=== PATIENT | female | born 1985 | race Caucasian/White ===

== ENCOUNTER 2023-01-29 11:32 | Outpatient (OUT) | payer BC, SELFPAY ==
[2023-01-29 12:04] LABS: Basophils Percent Auto 0.4 % (0.2-2.0); Eosinophils Absolute Auto 0.2 10^3/uL (0.0-0.7); Eosinophils Percent Auto 1.6 % (0.9-7.0); Hematocrit 39.5 % (36.0-48.0); Hemoglobin 13.7 g/dL (12.0-16.0); Immature Granulocytes Abs Auto 0.02 10^3/uL (0.00-0.03); Immature Granulocytes Pct Auto 0.2 % (0.0-0.5); Lymphocytes Absolute Auto 2.3 10^3/uL (1.2-3.8); Mean Corpuscular HGB Conc 34.7 g/dL (29.9-35.2); Mean Corpuscular Hemoglobin 29.4 pg (26.7-34.0); Mean Corpuscular Volume 84.8 fL (81.0-99.0); Monocytes Absolute Auto 0.4 10^3/uL (0.3-0.8); Monocytes Percent Auto 3.9 % (1.7-12.0); Neutrophils Absolute Auto 6.4 10^3/uL (1.4-6.5); Neutrophils Percent Auto 68.9 % (43.0-75.0); Platelet Count 272 10^3/uL (150-450); Red Blood Count 4.66 10^6/uL (4.20-5.40); White Blood Count 9.3 10^3/uL (4.0-11.0)
[2023-01-29 12:33] LABS: Estimated Average Glucose 80 mg/dL; Glycohemoglobin A1C 4.4 % (4.5-6.2)
[2023-01-29 12:38] LABS: Alanine Aminotransferase 19 U/L (14-59); Albumin Globulin Ratio 1.2; Albumin Level 4.3 g/dL (3.4-5.0); Alkaline Phosphatase 53 U/L (46-116); Anion Gap 12.1; Aspartate Amino Transferase 9 U/L (15-37); BUN Creatinine Ratio 14.3; Bilirubin Total 0.6 mg/dL (0.2-1.0); Calcium 8.9 mg/dL (8.5-10.1); Carbon Dioxide 27.5 mmol/L (21.0-32.0); Chloride 105 mmol/L (98-107); Chol HDL Ratio 3.8; Cholesterol 190 mg/dL (<=200); Estimated GFR (African America >60 (>=60); Estimated GFR (Non-African Ame >60 (>=60); Free Thyroxine Index 2.11 (1.30-4.50); Globulin 3.7 g/dL; Glucose 90 mg/dL (74-106); HDL Cholesterol 50 mg/dL (40-60); Potassium 3.6 mmol/L (3.5-5.1); Sodium 141 mmol/L (136-145); Triglycerides 110 mg/dL (<=150)
== END 2023-01-29 11:33 | disposition home or self-care (01) ==
PROVIDERS: PCP Family Medicine; Visit Provider Family Medicine
DX: Z00.00 Encounter for general adult medical examination without abnormal findings (principal)
CPT/HCPCS: 36415; 80053; 80061; 83036; 83540; 84436; 84443; 84479; 85025

== ENCOUNTER 2023-04-24 09:25 | Outpatient (OUT) | payer BC, SELFPAY ==
--- NOTE | 2023-04-24 09:29 | XR_ITS ---
The [address] [address] Patient Name: JIMI OSEGUERA MRN: [id number] date: 1985 Sex: F Assigned Patient Location: [facility] Current Patient Location: [facility] Accession/Order Number: [id number] Exam Date: 04/24/2023 10:20 Report Date: 04/24/2023 10:54 At the request of: MUNIR FERNÁNDEZ Procedure: XR mandible min 4V PROCEDURE: XR mandible min 4V HISTORY: Jaw Pain R68.64 COMPARISON: None. FINDINGS: BONES:No fracture, acute abnormality, or significant arthropathy. SOFT TISSUES:No visible soft tissue swelling. EFFUSION:None visible. OTHER: Negative. XR/XR mandible min 4V IMPRESSION: 1. No acute bone abnormality or suspicious findings. Electronically authenticated by: TEMI BARNES Date: 04/24/2023 10:54
== END 2023-04-24 09:26 | disposition home or self-care (01) ==
LOC: RAD 09:25
PROVIDERS: PCP Family Medicine; Visit Provider Family Medicine
DX: R68.84 Jaw pain (principal)
CPT/HCPCS: 70110

== ENCOUNTER 2023-11-04 10:49 | Outpatient (OUT) | payer BC, SELFPAY ==
--- OUTSIDE RECORDS SUMMARY | 2023-11-04 11:10 | XMS_ITS | CCD ---
Author Organization [facility] Care Team Providers Care Insurance Investigator Name Role Phone DR MUNIR FERNÁNDEZ Primary Care Unavailable PRADEEP, DR AMARAL Admitting Unavailable PRADEEP, DR AMARAL Attending Unavailable PRADEEP, DR AMARAL Attending Unavailable PRADEEP, DR AMARAL Consulting Unavailable DR MUNIR FERNÁNDEZ Primary Care Unavailable PRADEEP, DR AMARAL Admitting Unavailable PRADEEP, DR AMARAL Consulting Unavailable PRADEEP, DR AMARAL Primary Care Unavailable PRADEEP, DR AMARAL Admitting Unavailable PRADEEP, DR AMARAL Attending Unavailable Allergies Allergy Classification Reported Allergen(s) Allergy Type Date of Onset Reaction(s) Facility (2 sources) Gentamicin Sulfate (FDC) Drug Allergy [facility] Repository (2 sources) Penicillins Drug allergy (disorder) 10-07-2012 [facility] Problems Active Problems Problem Classification Problem Date Documented Da te Episodic/Chronic Cardiac dysrhythmias (1 source) Palpitations; Translations: [PALPITATIONS] Onset: 11-14-2021 Episodic Unclassified (3 sources) CONTACT W/AND (SUSP) EXPOS COVID-19; Translations: [CONTACT W/AND (SUSP) EXPOS COVID-19] Onset: 03-25-2021 Past or Other Problems Problem Classification Problem Date Documented Da te Episodic/Chronic Unclassified (1 source) CONTACT W/AND (SUSP) EXPOS COVID-19; Translations: [CONTACT W/AND (SUSP) EXPOS COVID-19] Onset: 03-23-2021 Results Test Name Value Interpretation Reference Range Facil ity VIT D 1 25 DIHYDROXYon 11-12 Calcitriol(1,25 di-OH Vit D) 41.6 pg/mL Normal 24.8-81.5 [facility] Comment on above: Result Comment: Pl ease note reference interval change Performed By: #### V [id number] #### [facility] [address] [place] [address] Dr. Jemma Covarrubias INSULINon 11-11-2021 Insulin 4.7 uIU/mL Normal 2.6-24.9 [facility] Comment on above: Performed By: #### I NSULIN #### [facility] [address] [place] [address] Dr. Jemma Covarrubias CBC AUTO DIFFon 11-10-2021 BASO # 0.0 103/ul Normal 0.0-0.1 [facility] Comment on above: Performed By: #### C BC #### [facility] [address] [place] [address] Dr. Jemma Covarrubias Basophils/100 WBC (Bld) 0.6 % Normal 0.2-2.0 [facility] Comment on above: Performed By: #### C BC #### [facility] [address] [place] [address] Dr. Jemma Covarrubias EO # 0.1 103/ul Normal 0.0-0.7 [facility] Comment on above: Performed By: #### C BC #### [facility] [address] [place] [address] Dr. Jemma Covarrubias Eosinophils/100 WBC (Bld) 0.7 % Critically low 0.9-7.0 [facility] Comment on above: Performed By: #### C BC #### [facility] [address] [place] [address] Dr. Jemma Covarrubias Erythrocyte distribution width (RBC) [Ratio] 13.4 % Normal 11.0-15.0 [facility] Comment on above: Performed By: #### C BC #### [facility] [address] [place] [address] Dr. Jemma Covarrubias Hematocrit (Bld) [Volume fraction] 34.4 % Critically low 36.0-48.0 [facility] Comment on above: Performed By: #### C BC #### [facility] [address] [place] [address] Dr. Jemma Covarrubias Hemoglobin (Bld) [Mass/Vol] 10.9 g/dL Critically low 12.0-16.0 [facility] Comment on above: Performed By: #### C BC #### [facility] [address] [address] [address] Jemma Covarrubias IG # 0.02 10e3/ul Normal 0.00-0.03 [facility] Comment on above: Performed By: #### C BC #### [facility] [address] [address] [address] Jemma Covarrubias IG % 0.3 % Normal 0.0-0.5 [facility] Comment on above: Performed By: #### C BC #### [facility] [address] [place] [address] Dr. Jemma Covarrubias LYMPH # 1.7 103/ul Normal 1.2-3.8 [facility] Comment on above: Performed By: #### C BC #### [facility] [address] [place] [address] Dr. Jemma Covarrubias Lymphocytes/100 WBC (Bld) 25.6 % Normal 20.5-60.0 [facility] Comment on above: Performed By: #### C BC #### [facility] [address] [place] [address] Dr. Jemma Covarrubias MANUAL DIFF REQ NO Normal [facility] Comment on above: Performed By: #### C BC #### [facility] [address] [place] [address] Dr. Jemma Covarrubias MCH (RBC) [Entitic mass] 24.7 pg Critically low 26.7-34.0 [facility] Comment on above: Performed By: #### C BC #### [facility] [address] [place] [address] Dr. Jemma Covarrubias MCHC (RBC) [Mass/Vol] 31.7 g/dL Normal 29.9-35.2 [facility] Comment on above: Performed By: #### C BC #### [facility] [address] [place] [address] Dr. Jemma Covarrubias MCV (RBC) [Entitic vol] 78.0 fL Critically low 81.0-99.0 [facility] Comment on above: Performed By: #### C BC #### [facility] [address] [place] [address] Dr. Jemma Covarrubias MONO # 0.3 103/ul Normal 0.3-0.8 [facility] Comment on above: Performed By: #### C BC #### [facility] [address] [place] [address] Dr. Jemma Covarrubias Monocytes/100 WBC (Bld) 4.5 % Normal 1.7-12.0 [facility] Comment on above: Performed By: #### C BC #### [facility] [address] [place] [address] Dr. Jemma Covarrubias NEUT # 4.6 103/ul Normal 1.4-6.5 [facility] Comment on above: Performed By: #### C BC #### [facility] [address] [place] [address] Dr. Jemma Covarrubias Neutrophils/100 WBC (Bld) 68.3 % Normal 43.0-75.0 [facility] Comment on above: Performed By: #### C BC #### [facility] [address] [place] [address] Dr. Jemma Covarrubias Platelet mean volume (Bld) [Entitic vol] 10.2 fL Normal 9.5-13.5 [facility] Comment on above: Performed By: #### C BC #### [facility] [address] [place] [address] Dr. Jemma Covarrubias PLT 299 103/ul Normal 150-450 [facility] Comment on above: Performed By: #### C BC #### [facility] [address] [place] [address] Dr. Jemma Covarrubias RBC 4.41 106/ul Normal 4.20-5.40 [facility] Comment on above: Performed By: #### C BC #### [facility] [address] [place] [address] Dr. Jemma Covarrubias WBC 6.7 103/ul Normal 4.0-11.0 [facility] Comment on above: Performed By: #### C BC #### [facility] [address] [place] [address] Dr. Jemma Covarrubias FREE THYROXINE INDEX T7on FTI 2.64 Normal 1.30-4.50 [facility] Comment on above: Performed By: #### T SH, T7, LIPID, CMP #### [facility] [address] [address] [address] Jemma Covarrubias T3U 31.0 % Normal 30.0-39.0 [facility] Comment on above: Performed By: #### T SH, T7, LIPID, CMP #### [facility] [address] [address] [address] Jemma Covarrubias T4 [Mass/Vol] 8.50 ug/dL Normal 4.80-13.90 [facility] Comment on above: Performed By: #### T SH, T7, LIPID, CMP #### [facility] [address] [address] [address] Jemma Covarrubias GLYCOHEMOGLOBIN A1Con 2021 ADA RECOMMENDATION SEE BELOW Normal [facility] Comment on above: Result Comment: ADA RECOMMENDED LIMIT 4.0 - 6.0 ADA THERAPEUTIC TARGET < 7.0 ACTION SUGGESTED > 7.0 Performed By: #### A 1C #### [facility] [address] [address] [address] Jemma Covarrubias Glucose [Mass/Vol] 103 mg/dL Normal [facility] Comment on above: Performed By: #### A 1C #### [facility] [address] [address] [address] Jemma Covarrubias HbA1c (Bld) [Mass fraction] 5.2 % Normal 4.5-6.2 [facility] Comment on above: Performed By: #### A 1C #### [facility] [address] [address] [address] Jemma Covarrubias IRONon 11-10-2021 Iron [Mass/Vol] 28.0 ug/dL Critically low 50.0-170.0 [facility] Comment on above: Performed By: #### I LUZ MARIA #### [facility] [address] [place] [address] Dr. Jemma Covarrubias LIPID PROFILEon 11-10-2021 CHOL-HDL RATIO NORM SEE BELOW Normal [facility] Comment on above: Result Comment: 3.3 - 4.4 LOW RISK 4.4 - 7.1 AVERAGE RISK 7.1 - 11.0 MODERATE RISK >11.0 HIGH RISK Performed By: #### T SH, T7, LIPID, CMP #### [facility] [address] [address] [address] Jemma Covarrubias Cholesterol [Mass/Vol] 189 mg/dL Normal <=200 [facility] Comment on above: Performed By: #### T SH, T7, LIPID, CMP #### [facility] [address] [address] [address] Jemma Covarrubias Cholesterol in HDL [Mass/Vol] 53 mg/dL Normal 40-60 [facility] Comment on above: Performed By: #### T SH, T7, LIPID, CMP #### [facility] [address] [address] [address] Jemma Covarrubias Cholesterol in LDL [Mass/Vol] 130.8 mg/dL Normal [facility] Comment on above: Performed By: #### T SH, T7, LIPID, CMP #### [facility] [address] [address] [address] Jemma Covarrubias Cholesterol.total/Cho lesterol in HDL [Mass ratio] 3.6 {ratio} Normal [facility] Comment on above: Performed By: #### T SH, T7, LIPID, CMP #### [facility] [address] [address] [address] Jemma Covarrubias HDL NORMAL > or = 60 mg/dl - LOW CARDIOVASCULAR RISK <40 mg/dl - HIGH CARDIOVASCULAR RISK Normal [facility] Comment on above: Performed By: #### T SH, T7, LIPID, CMP #### [facility] [address] [address] [address] Jemma Covarrubias LDL CALC NORMAL SEE BELOW Normal [facility] Comment on above: Result Comment: <100 mg/dl OPTIMAL 100 - 129 mg/dl NEAR OR ABOVE OPTIMAL 130 - 159 mg/dl BORDERLINE HIGH 160 - 189 mg/dl HIGH >190 mg/dl VERY HIGH Performed By: #### T SH, T7, LIPID, CMP #### [facility] [address] [address] [address] Jemma Covarrubias Triglyceride [Mass/Vol] 26 mg/dL Normal <=150 [facility] Comment on above: Performed By: #### T SH, T7, LIPID, CMP #### [facility] [address] [address] [address] Jemma Covarrubias VLDL CALC 5.2 mg/dL Normal [facility] Comment on above: Performed By: #### T SH, T7, LIPID, CMP #### [facility] [address] [address] [address] Jemma Covarrubias PROF 14(COMP METB)on 022 Albumin [Mass/Vol] 4.0 g/dL Normal 3.4-5.0 [facility] Comment on above: Performed By: #### T SH, T7, LIPID, CMP #### [facility] [address] [place] [address] Dr. Jemma Covarrubias Albumin/Globulin [Mass ratio] 1.1 {ratio} Normal [facility] Comment on above: Performed By: #### T SH, T7, LIPID, CMP #### [facility] [address] [place] [address] Dr. Jemma Covarrubias ALP [Catalytic activity/Vol] 55 U/L Normal 46-116 [facility] Comment on above: Performed By: #### T SH, T7, LIPID, CMP #### [facility] [address] [place] [address] Dr. Jemma Covarrubias ALT [Catalytic activity/Vol] 21 U/L Normal 14-59 [facility] Comment on above: Performed By: #### T SH, T7, LIPID, CMP #### [facility] [address] [place] [address] Dr. Jemma Covarrubias Anion gap [Moles/Vol] 15.6 mmol/L Normal [facility] Comment on above: Performed By: #### T SH, T7, LIPID, CMP #### [facility] [address] [place] [address] Dr. Jemma Covarrubias AST [Catalytic activity/Vol] 11 U/L Critically low 15-37 [facility] Comment on above: Performed By: #### T SH, T7, LIPID, CMP #### [facility] [address] [place] [address] Dr. Jemma Covarrubias Bilirubin [Mass/Vol] 0.6 mg/dL Normal 0.2-1.0 [facility] Comment on above: Performed By: #### T SH, T7, LIPID, CMP #### [facility] [address] [place] [address] Dr. Jemma Covarrubias Calcium [Mass/Vol] 8.9 mg/dL Normal 8.5-10.1 [facility] Comment on above: Performed By: #### T SH, T7, LIPID, CMP #### [facility] [address] [place] [address] Dr. Jemma Covarrubias Chloride [Moles/Vol] 104 mmol/L Normal 98-107 [facility] Comment on above: Performed By: #### T SH, T7, LIPID, CMP #### [facility] [address] [place] [address] Dr. Jemma Covarrubias CO2 [Moles/Vol] 26.2 mmol/L Normal 21.0-32.0 [facility] Comment on above: Performed By: #### T SH, T7, LIPID, CMP #### [facility] [address] [place] [address] Dr. Jemma Covarrubias Creatinine [Mass/Vol] 0.61 mg/dL Normal 0.55-1.02 [facility] Comment on above: Performed By: #### T SH, T7, LIPID, CMP #### [facility] [address] [place] [address] Dr. Jemma Covarrubias EGFR-AF CAMBODIAN >=60 Normal >=60 [facility] Comment on above: Performed By: #### T SH, T7, LIPID, CMP #### [facility] [address] [place] [address] Dr. Jemma Covarrubias EGFR-NON AF CAMBODIAN >=60 Normal >=60 [facility] Comment on above: Performed By: #### T SH, T7, LIPID, CMP #### [facility] [address] [place] [address] Dr. Jemma Covarrubias Globulin (S) [Mass/Vol] 3.7 g/dL Normal [facility] Comment on above: Performed By: #### T SH, T7, LIPID, CMP #### [facility] [address] [address] [address] Jemma Covarrubias Glucose [Mass/Vol] 92 mg/dL Normal 74-106 [facility] Comment on above: Performed By: #### T SH, T7, LIPID, CMP #### [facility] [address] [address] [address] Jemma Covarrubias Potassium [Moles/Vol] 3.8 mmol/L Normal 3.5-5.1 [facility] Comment on above: Performed By: #### T SH, T7, LIPID, CMP #### [facility] [address] [place] [address] Dr. Jemma Covarrubias Protein [Mass/Vol] 7.7 g/dL Normal 6.4-8.2 [facility] Comment on above: Performed By: #### T SH, T7, LIPID, CMP #### [facility] [address] [address] [address] Jemma Covarrubias Sodium [Moles/Vol] 142 mmol/L Normal 136-145 [facility] Comment on above: Performed By: #### T SH, T7, LIPID, CMP #### [facility] [address] [place] [address] Dr. Jemma Covarrubias Urea nitrogen [Mass/Vol] 10.0 mg/dL Normal 7.0-18.0 [facility] Comment on above: Performed By: #### T SH, T7, LIPID, CMP #### [facility] [address] [place] [address] Dr. Jemma Covarrubias Urea nitrogen/Creatinine [Mass ratio] 16.4 mg/mg Normal [facility] Comment on above: Performed By: #### T SH, T7, LIPID, CMP #### [facility] [address] [place] [address] Dr. Jemma Covarrubias TSHon 11-10-2021 TSH 1.411 uIU/mL Normal 0.358-3.740 [facility] Comment on above: Performed By: #### T SH, T7, LIPID, CMP #### [facility] [address] [place], [place] [address] Dr. Jemma Covarrubias Covid-19 PCR ([facility])on 02-25 SARS-CoV-2 (COVID-19) RNA DANYEL+probe Ql (Unsp spec) Not detected Normal NOT DETECTED [facility] Comment on above: Result Comment: This test is not yet approved or cleared by the [place] FDA. When there are no FDA-approved or cleared tests available, and other criteria are met, FDA can make tests available under an emergency access mechanism called an Emergency Use Authorization (EUA). The EUA for this test is supported by the [place] of [employer] and Human Service's (HHS's) declaration that circumstances exist to justify the emergency use of in vitro diagnostics for the detection and/or diagnosis of the virus that causes COVID-19. This EUA will remain in effect (meaning this test can be used) for the duration of the COVID-19 declaration justifying emergency of IVDs, unless it is terminated or revoked by FDA (after which the test may no longer be used). When diagnostic testing is negative, the possibility of a false negative should be considered in the context of a patient's recent exposures and the presence of clinical signs and symptoms consistent with SARS-CoV-2. Performed By: #### C VDTB #### [facility] [address] [place], [place] [address] Dr. Jemma Covarrubias Encounters Encounter Date Encounter Type Care Provider Facility Start: 11-14-2021 Encounter for genera l adult medical examination without abnormal findings DR MUNIR FERNÁNDEZ [facility] Start: 11-10-2021 End: 11-11-[address] MUNIR FERNÁNDEZ Facility:[facility] Start: 11-10-2021 End: 11-11-2021 Encounter for general adult medical examination without abnormal findings DR MUNIR FERNÁNDEZ Facility:[facility] Start: 04-09-[address] MUNIR FERNÁNDEZ Facility :[facility] Start: 03-23-2021 End: 03-23-[address] MUNIR FERNÁNDEZ Facility:[facility] Payers Date Payer Category Payer Unknown [id number] 1985 Unknown [id number] 1985 Unknown [id number] 1958 Self-pay [id number] 1958 Unknown [id number] 1958 Unknown [id number] Summary Purpose Family History No Family History Records Found Advance Directives No Advanced Directives Records Found Additional Source Comments INFORMATION SOURCE (unrecogn ized section and content) DATE CREATED AUTHOR 11/29/2021 [facility] FOR RECORDS PERTAINING TO PATIENTS WHO ARE OR HAVE BEEN ENROLLED IN A CHEMICAL DEPENDENCY/SUBSTANCEABUSE PROGRAM, SOME INFORMATION MAY BE OMITTED. This clinical summary was aggregated from multiple sources. Caution should be exercised in using it in the provision of clinical care. This summary normalizes information from multiple sources, and as a consequence, information in this document may materially change the coding, format and clinical context of patient data. In addition, data may be omitted in some cases. CLINICAL DECISIONS SHOULD BE BASED ON THE PRIMARY CLINICAL RECORDS. [facility]. provides no warranty or guarantee of the accuracy or completeness of information in this document.
[2023-11-04 11:47] LABS: Basophils Percent Auto 0.4 % (0.2-2.0); Eosinophils Absolute Auto 0.1 10^3/uL (0.0-0.7); Eosinophils Percent Auto 1.3 % (0.9-7.0); Hematocrit 36.4 % (36.0-48.0); Hemoglobin 12.6 g/dL (12.0-16.0); Immature Granulocytes Abs Auto 0.03 10^3/uL (0.00-0.03); Immature Granulocytes Pct Auto 0.4 % (0.0-0.5); Lymphocytes Absolute Auto 1.6 10^3/uL (1.2-3.8); Mean Corpuscular HGB Conc 34.6 g/dL (29.9-35.2); Mean Corpuscular Hemoglobin 29.2 pg (26.7-34.0); Mean Corpuscular Volume 84.3 fL (81.0-99.0); Mean Platelet Volume 10.4 fL (9.5-13.5); Monocytes Absolute Auto 0.3 10^3/uL (0.3-0.8); Monocytes Percent Auto 3.8 % (1.7-12.0); Neutrophils Absolute Auto 5.6 10^3/uL (1.4-6.5); Neutrophils Percent Auto 73.1 % (43.0-75.0); Platelet Count 297 10^3/uL (150-450); Red Blood Count 4.32 10^6/uL (4.20-5.40); Red Cell Distribution Width 13.3 % (11.0-15.0); White Blood Count 7.7 10^3/uL (4.0-11.0)
[2023-11-04 12:08] LABS: Anion Gap 12.7; BUN Creatinine Ratio 8.5; Calcium 9.1 mg/dL (8.5-10.1); Carbon Dioxide 27.3 mmol/L (21.0-32.0); Chloride 104 mmol/L (98-107); Estimated GFR (African America >60 (>=60); Estimated GFR (Non-African Ame >60 (>=60); Glucose 102 mg/dL (74-106); Sodium 141 mmol/L (136-145)
[2023-11-04 12:23] LABS: Erythrocyte Sedimentation Rate 11 mm/hr (<=20)
== END 2023-11-04 10:50 | disposition home or self-care (01) ==
LOC: LAB 10:51
PROVIDERS: PCP Family Medicine; Visit Provider Family Medicine
DX: L03.90 Cellulitis, unspecified (principal); I10 Essential (primary) hypertension
CPT/HCPCS: 36415; 80048; 80053; 83880; 85025; 85652; 87040

== ENCOUNTER 2024-01-20 08:32 | Outpatient (OUT) | payer BC, SELFPAY ==
--- OUTSIDE RECORDS SUMMARY | 2024-01-20 08:55 | XMS_ITS | CCD ---
Author Organization [facility] Care Team Providers Care Firewall Administrator Name Role Phone DR MUNIR FERNÁNDEZ Primary [...] Onset Reaction(s) Facility (2 sources) Gentamicin Sulfate ([facility]) Drug Allergy [facility] (2 sources) Penicillins Drug allergy (disorder) 10-07-2012 [facility] Problems Active Problems Problem Classification Problem [...] di-OH Vit D) 41.6 pg/mL Normal 24.8-81.5 [facility] Comment on above: Result Comment: Pl ease note reference interval change Performed By: #### V [id number] #### [facility] [address] [place] [id number] Jemma Covarrubias INSULINon 11-11-2021 Insulin 4.7 uIU/mL Normal 2.6-24.9 [facility] Comment on above: Performed By: #### I NSULIN #### [facility] [address] [place] [address] Dr. Jemma Covarrubias CBC AUTO DIFFon 11-10-2021 BASO # 0.0 103/ul Normal 0.0-0.1 [facility] Comment on above: Performed By: #### C BC #### [facility] [address] [place] [address] Dr. Jemma Covarrubias Basophils/100 WBC (Bld) 0.6 % Normal 0.2-2.0 [facility] Comment on above: Performed By: #### C BC #### [facility] [address] [place] [address] Dr. Jemma Covarrubias EO # 0.1 103/ul Normal 0.0-0.7 [facility] Comment on above: Performed By: #### C BC #### [facility] [address] [place] [address] Dr. Jemma Covarrubias Eosinophils/100 WBC (Bld) 0.7 % Critically low 0.9-7.0 [facility] Comment on above: Performed By: #### C BC #### [facility] [address] [place] [address] Dr. Jemma Covarrubias Erythrocyte distribution width (RBC) [Ratio] 13.4 % Normal 11.0-15.0 [facility] Comment on above: Performed By: #### C BC #### [facility] [address] [place] [address] Dr. Jemma Covarrubias Hematocrit (Bld) [Volume fraction] 34.4 % Critically low 36.0-48.0 [facility] Comment on above: Performed By: #### C BC #### [facility] [address] [place] [address] Dr. Jemma Covarrubias Hemoglobin (Bld) [Mass/Vol] 10.9 g/dL Critically low 12.0-16.0 [facility] Comment on above: Performed By: #### C BC #### [facility] [address] [address] [address] Jemma Covarrubias IG # 0.02 10e3/ul Normal 0.00-0.03 [facility] Comment on above: Performed By: #### C BC #### [facility] [address] [address] [address] Jemma Covarrubias IG % 0.3 % Normal 0.0-0.5 [facility] Comment on above: Performed By: #### C BC #### [facility] [address] [place] [address] Dr. Jemma Covarrubias LYMPH # 1.7 103/ul Normal 1.2-3.8 [facility] Comment on above: Performed By: #### C BC #### [facility] [address] [place] [address] Dr. Jemma Covarrubias Lymphocytes/100 WBC (Bld) 25.6 % Normal 20.5-60.0 [facility] Comment on above: Performed By: #### C BC #### [facility] [address] [place] [address] Dr. Jemma Covarrubias MANUAL DIFF REQ NO Normal [facility] Comment on above: Performed By: #### C BC #### [facility] [address] [place] [address] Dr. Jemma Covarrubias MCH (RBC) [Entitic mass] 24.7 pg Critically low 26.7-34.0 [facility] Comment on above: Performed By: #### C BC #### [facility] [address] [place] [address] Dr. Jemma Covarrubias MCHC (RBC) [Mass/Vol] 31.7 g/dL Normal 29.9-35.2 [facility] Comment on above: Performed By: #### C BC #### [facility] [address] [place] [address] Dr. Jemma Covarrubias MCV (RBC) [Entitic vol] 78.0 fL Critically low 81.0-99.0 [facility] Comment on above: Performed By: #### C BC #### [facility] [address] [place] [address] Dr. Jemma Covarrubias MONO # 0.3 103/ul Normal 0.3-0.8 [facility] Comment on above: Performed By: #### C BC #### [facility] [address] [place] [address] Dr. Jemma Covarrubias Monocytes/100 WBC (Bld) 4.5 % Normal 1.7-12.0 [facility] Comment on above: Performed By: #### C BC #### [facility] [address] [place] [address] Dr. Jemma Covarrubias NEUT # 4.6 103/ul Normal 1.4-6.5 [facility] Comment on above: Performed By: #### C BC #### [facility] [address] [place] [address] Dr. Jemma Covarrubias Neutrophils/100 WBC (Bld) 68.3 % Normal 43.0-75.0 [facility] Comment on above: Performed By: #### C BC #### [facility] [address] [place] [address] Dr. Jemma Covarrubias Platelet mean volume (Bld) [Entitic vol] 10.2 fL Normal 9.5-13.5 [facility] Comment on above: Performed By: #### C BC #### [facility] [address] [place] [address] Dr. Jemma Covarrubias PLT 299 103/ul Normal 150-450 [facility] Comment on above: Performed By: #### C BC #### [facility] [address] [place] [address] Dr. Jemma Covarrubias RBC 4.41 106/ul Normal 4.20-5.40 [facility] Comment on above: Performed By: #### C BC #### [facility] [address] [place] [address] Dr. Jemma Covarrubias WBC 6.7 103/ul Normal 4.0-11.0 [facility] Comment on above: Performed By: #### C BC #### [facility] [address] [place] [address] Dr. Jemma Covarrubias FREE THYROXINE INDEX T7on FTI 2.64 Normal 1.30-4.50 [facility] Comment on above: Performed By: #### T SH, T7, LIPID, CMP #### [facility] [address] [address] [address] Jemma Covarrubias T3U 31.0 % Normal 30.0-39.0 [facility] Comment on above: Performed By: #### T SH, T7, LIPID, CMP #### [facility] [address] [address] [address] Jemma Covarrubias T4 [Mass/Vol] 8.50 ug/dL Normal 4.80-13.90 [facility] Comment on above: Performed By: #### T SH, T7, LIPID, CMP #### [facility] [address] [address] [address] Jemma Covarrubias GLYCOHEMOGLOBIN A1Con 2021 ADA RECOMMENDATION SEE BELOW Normal [facility] Comment on above: Result Comment: ADA RECOMMENDED LIMIT 4.0 - 6.0 ADA THERAPEUTIC TARGET < 7.0 ACTION SUGGESTED > 7.0 Performed By: #### A 1C #### [facility] [address] [address] [address] Jemma Covarrubias Glucose [Mass/Vol] 103 mg/dL Normal [facility] Comment on above: Performed By: #### A 1C #### [facility] [address] [address] [address] Jemma Covarrubias HbA1c (Bld) [Mass fraction] 5.2 % Normal 4.5-6.2 [facility] Comment on above: Performed By: #### A 1C #### [facility] [address] [address] [address] Jemma Covarrubias IRONon 11-10-2021 Iron [Mass/Vol] 28.0 ug/dL Critically low 50.0-170.0 [facility] Comment on above: Performed By: #### I LUZ MARIA #### [facility] [address] [place] [address] Dr. Jemma Covarrubias LIPID PROFILEon 11-10-2021 CHOL-HDL RATIO NORM SEE BELOW Normal [facility] Comment on above: Result Comment: 3.3 - 4.4 LOW RISK 4.4 - 7.1 AVERAGE RISK 7.1 - 11.0 MODERATE RISK >11.0 HIGH RISK Performed By: #### T SH, T7, LIPID, CMP #### [facility] [address] [address] [address] Jemma Covarrubias Cholesterol [Mass/Vol] 189 mg/dL Normal <=200 [facility] Comment on above: Performed By: #### T SH, T7, LIPID, CMP #### [facility] [address] [address] [address] Jemma Covarrubias Cholesterol in HDL [Mass/Vol] 53 mg/dL Normal 40-60 [facility] Comment on above: Performed By: #### T SH, T7, LIPID, CMP #### [facility] [address] [address] [address] Jemma Covarrubias Cholesterol in LDL [Mass/Vol] 130.8 mg/dL Normal [facility] Comment on above: Performed By: #### T SH, T7, LIPID, CMP #### [facility] [address] [address] [address] Jemma Covarrubias Cholesterol.total/Cho lesterol in HDL [Mass ratio] 3.6 {ratio} Normal [facility] Comment on above: Performed By: #### T SH, T7, LIPID, CMP #### [facility] [address] [address] [address] Jemma Covarrubias HDL NORMAL > or = 60 mg/dl - LOW CARDIOVASCULAR RISK <40 mg/dl - HIGH CARDIOVASCULAR RISK Normal [facility] Comment on above: Performed By: #### T SH, T7, LIPID, CMP #### [facility] [address] [address] [address] Jemma Covarrubias LDL CALC NORMAL SEE BELOW Normal [facility] Comment on above: Result Comment: <100 mg/dl OPTIMAL 100 - 129 mg/dl NEAR OR ABOVE OPTIMAL 130 - 159 mg/dl BORDERLINE HIGH 160 - 189 mg/dl HIGH >190 mg/dl VERY HIGH Performed By: #### T SH, T7, LIPID, CMP #### [facility] [address] [address] [address] Jemma Covarrubias Triglyceride [Mass/Vol] 26 mg/dL Normal <=150 [facility] Comment on above: Performed By: #### T SH, T7, LIPID, CMP #### [facility] [address] [address] [address] Jemma Covarrubias VLDL CALC 5.2 mg/dL Normal [facility] Comment on above: Performed By: #### T SH, T7, LIPID, CMP #### [facility] [address] [address] [address] Jemma Covarrubias PROF 14(COMP METB)on 022 Albumin [Mass/Vol] 4.0 g/dL Normal 3.4-5.0 [facility] Comment on above: Performed By: #### T SH, T7, LIPID, CMP #### [facility] [address] [place] [address] Dr. Jemma Covarrubias Albumin/Globulin [Mass ratio] 1.1 {ratio} Normal [facility] Comment on above: Performed By: #### T SH, T7, LIPID, CMP #### [facility] [address] [place] [address] Dr. Jemma Covarrubias ALP [Catalytic activity/Vol] 55 U/L Normal 46-116 [facility] Comment on above: Performed By: #### T SH, T7, LIPID, CMP #### [facility] [address] [place] [address] Dr. Jemma Covarrubias ALT [Catalytic activity/Vol] 21 U/L Normal 14-59 [facility] Comment on above: Performed By: #### T SH, T7, LIPID, CMP #### [facility] [address] [place] [address] Dr. Jemma Covarrubias Anion gap [Moles/Vol] 15.6 mmol/L Normal [facility] Comment on above: Performed By: #### T SH, T7, LIPID, CMP #### [facility] [address] [place] [address] Dr. Jemma Covarrubias AST [Catalytic activity/Vol] 11 U/L Critically low 15-37 [facility] Comment on above: Performed By: #### T SH, T7, LIPID, CMP #### [facility] [address] [place] [address] Dr. Jemma Covarrubias Bilirubin [Mass/Vol] 0.6 mg/dL Normal 0.2-1.0 [facility] Comment on above: Performed By: #### T SH, T7, LIPID, CMP #### [facility] [address] [place] [address] Dr. Jemma Covarrubias Calcium [Mass/Vol] 8.9 mg/dL Normal 8.5-10.1 [facility] Comment on above: Performed By: #### T SH, T7, LIPID, CMP #### [facility] [address] [place] [address] Dr. Jemma Covarrubias Chloride [Moles/Vol] 104 mmol/L Normal 98-107 [facility] Comment on above: Performed By: #### T SH, T7, LIPID, CMP #### [facility] [address] [place] [address] Dr. Jemma Covarrubias CO2 [Moles/Vol] 26.2 mmol/L Normal 21.0-32.0 [facility] Comment on above: Performed By: #### T SH, T7, LIPID, CMP #### [facility] [address] [place] [address] Dr. Jemma Covarrubias Creatinine [Mass/Vol] 0.61 mg/dL Normal 0.55-1.02 [facility] Comment on above: Performed By: #### T SH, T7, LIPID, CMP #### [facility] [address] [place] [address] Dr. Jemma Covarrubias EGFR-AF AFGHAN >=60 Normal >=60 [facility] Comment on above: Performed By: #### T SH, T7, LIPID, CMP #### [facility] [address] [place] [address] Dr. Jemma Covarrubias EGFR-NON AF AFGHAN >=60 Normal >=60 [facility] Comment on above: Performed By: #### T SH, T7, LIPID, CMP #### [facility] [address] [place] [address] Dr. Jemma Covarrubias Globulin (S) [Mass/Vol] 3.7 g/dL Normal [facility] Comment on above: Performed By: #### T SH, T7, LIPID, CMP #### [facility] [address] [address] [address] Jemma Covarrubias Glucose [Mass/Vol] 92 mg/dL Normal 74-106 [facility] Comment on above: Performed By: #### T SH, T7, LIPID, CMP #### [facility] [address] [address] [address] Jemma Covarrubias Potassium [Moles/Vol] 3.8 mmol/L Normal 3.5-5.1 [facility] Comment on above: Performed By: #### T SH, T7, LIPID, CMP #### [facility] [address] [place] [address] Dr. Jemma Covarrubias Protein [Mass/Vol] 7.7 g/dL Normal 6.4-8.2 [facility] Comment on above: Performed By: #### T SH, T7, LIPID, CMP #### [facility] [address] [address] [address] Jemma Covarrubias Sodium [Moles/Vol] 142 mmol/L Normal 136-145 [facility] Comment on above: Performed By: #### T SH, T7, LIPID, CMP #### [facility] [address] [place] [address] Dr. Jemma Covarrubias Urea nitrogen [Mass/Vol] 10.0 mg/dL Normal 7.0-18.0 [facility] Comment on above: Performed By: #### T SH, T7, LIPID, CMP #### [facility] [address] [place] [address] Dr. Jemma Covarrubias Urea nitrogen/Creatinine [Mass ratio] 16.4 mg/mg Normal [facility] Comment on above: Performed By: #### T SH, T7, LIPID, CMP #### [facility] [address] [place] [address] Dr. eJmma Covarrubias TSHon 11-10-2021 TSH 1.411 uIU/mL Normal 0.358-3.740 [facility] Comment on above: Performed By: #### T SH, T7, LIPID, CMP #### [facility] [address] [place], [place] [address] Dr. Jemma Covarrubias Covid-19 PCR ([facility])on 02-25 SARS-CoV-2 (COVID-19) RNA DANYEL+probe Ql (Unsp spec) Not detected Normal NOT DETECTED [facility] Comment on above: Result Comment: This test is not yet approved or cleared by the [place] FDA. When there are no FDA-approved or cleared tests available, and other criteria are met, FDA can make tests available under an emergency access mechanism called an Emergency Use Authorization (EUA). The EUA for this test is supported by the [place] of Health and Human Service's (HHS's) declaration [...] SARS-CoV-2. Performed By: #### C VDTB #### [facility] [address] [place], [place] [address] Dr. Jemma Covarrubias Encounters Encounter Date Encounter Type Care Provider Facility Start: 11-14-2021 Encounter for genera l adult medical examination without abnormal findings DR MUNIR FERNÁNDEZ [facility] Start: 11-10-2021 End: 11-11-[address] MUNIR FERNÁNDEZ Facility:[facility] Start: 11-10-2021 End: 11-11-2021 Encounter for general adult medical examination without abnormal findings DR MUNIR FERNÁNDEZ Facility:[facility] Start: 04-09-[address] MUNIR FERNÁNDEZ Facility :[facility] Start: 03-23-2021 End: 03-23-[address] MUNIR FERNÁNDEZ Facility:[facility] Payers Date Payer Category Payer Unknown [id number] 1985 Unknown [id number] 1986 Unknown [id number] 1959 Self-pay [id number] 1958 Unknown [id number] 1958 Unknown [id number] Summary Purpose Family History No Family History Records Found Advance Directives No Advanced Directives Records Found Additional Source Comments INFORMATION SOURCE (unrecogn ized section and content) DATE CREATED AUTHOR 11/29/2021 [facility] PERTAINING TO PATIENTS WHO ARE [...] BE BASED ON THE PRIMARY CLINICAL RECORDS. [facility]. provides no warranty or guarantee of the accuracy or completeness of information in this document.
[2024-01-20 08:56] LABS: Basophils Percent Auto 0.1 % (0.2-2.0); Eosinophils Percent Auto 0.5 % (0.9-7.0); Hematocrit 37.5 % (36.0-48.0); Hemoglobin 12.6 g/dL (12.0-16.0); Immature Granulocytes Abs Auto 0.02 10^3/uL (0.00-0.03); Immature Granulocytes Pct Auto 0.2 % (0.0-0.5); Lymphocytes Absolute Auto 1.9 10^3/uL (1.2-3.8); Lymphocytes Percent Auto 23.1 % (20.5-60.0); Mean Corpuscular HGB Conc 33.6 g/dL (29.9-35.2); Mean Corpuscular Hemoglobin 28.6 pg (26.7-34.0); Mean Platelet Volume 10.4 fL (9.5-13.5); Monocytes Absolute Auto 0.4 10^3/uL (0.3-0.8); Monocytes Percent Auto 4.5 % (1.7-12.0); Neutrophils Percent Auto 71.6 % (43.0-75.0); Platelet Count 285 10^3/uL (150-450); Red Blood Count 4.41 10^6/uL (4.20-5.40); Red Cell Distribution Width 12.6 % (11.0-15.0); White Blood Count 8.4 10^3/uL (4.0-11.0)
[2024-01-20 10:09] LABS: Alanine Aminotransferase 17 U/L (14-59); Albumin Globulin Ratio 1.3; Albumin Level 4.1 g/dL (3.4-5.0); Alkaline Phosphatase 55 U/L (46-116); Anion Gap 11.4; Aspartate Amino Transferase 11 U/L (15-37); BUN Creatinine Ratio 8.5; Bilirubin Total 1.1 mg/dL (0.2-1.0); Carbon Dioxide 28.2 mmol/L (21.0-32.0); Chloride 104 mmol/L (98-107); Chol HDL Ratio 3.4; Cholesterol 149 mg/dL (<=200); Estimated GFR (African America >60 (>=60); Estimated GFR (Non-African Ame >60 (>=60); Free T3 2.59 pg/mL (2.18-3.98); Globulin 3.1 g/dL; Glucose 86 mg/dL (74-106); HDL Cholesterol 44 mg/dL (40-60); LDL Cholesterol Calculated 80.8 mg/dL; Potassium 3.6 mmol/L (3.5-5.1); Sodium 140 mmol/L (136-145); Thyroid Stimulating Hormone 2.236 uIU/mL (0.358-3.740); Total Protein 7.2 g/dL (6.4-8.2); Triglycerides 121 mg/dL (<=150); VLDL CHOLESTEROL 24.2 mg/dL
[2024-01-20 10:27] LABS: Estimated Average Glucose 82 mg/dL; Glycohemoglobin A1C 4.5 % (4.5-6.2)
== END 2024-01-20 08:33 | disposition home or self-care (01) ==
LOC: LAB 08:33
PROVIDERS: PCP Family Medicine; Visit Provider Family Medicine
DX: Z00.00 Encounter for general adult medical examination without abnormal findings (principal)
CPT/HCPCS: 36415; 80053; 80061; 83036; 84436; 84443; 84481; 85025

== ENCOUNTER 2024-12-09 09:59 | Outpatient (OUT) | payer BC, SELFPAY ==
--- OUTSIDE RECORDS SUMMARY | 2024-12-09 10:24 | XMS_ITS | CCD ---
Author Organization [facility] Care Team Providers Care Child Care Specialist Name Role Phone DR MUNIR PORTILLO Primary Care Unavailable PRADEEP, DR AMARAL Admitting Unavailable PRADEEP, DR AMARAL Attending Unavailable PRADEEP, DR AMARAL Attending Unavailable PRADEEP, DR AMARAL Consulting Unavailable PRADEEP, DR AMARAL Primary Care Unavailable PRADEEP, DR AMARAL Admitting Unavailable PRADEEP, DR AMARAL Consulting Unavailable PRADEEP, DR AMARAL Primary Care Unavailable PRADEEP, DR AMARAL Admitting Unavailable PRADEEP, DR AMARAL Attending Unavailable CAROLE DUNBAR Attending Unavailable CAROLE DUNBAR Attending Unavailable Munir Portillo MD Primary Care Provider [phone] Angella Saldivar MD Attending Provider Angella Saldivar Attending Unavailable Angella Saldivar Admitting Unavailable Allergies Allergy Classification Reported Allergen(s) Allergy Type Date of Onset Reaction(s) Facility (2 sources) Gentamicin Sulfate (RETIREMENT) Drug Allergy [facility] (2 sources) Penicillins Drug allergy (disorder) 10-07-2012 [facility] (4 sources) Gentamicin Drug Allergy 11-16-2013 [facility] (4 sources) Penicillins Drug Allergy 03-13-2013 [facility] Medications Current Medications Medication Drug Class(es) Dates Sig (Normalized) Sig (Original) desoximetasone 2.5 mg/ml topical cream (4 sources) Corticosteroid desoximetasone (Topicort) 0.25 % cream 1 Application every 12 (twelve) hours Active ferrous sulfate 325 mg delayed release oral tablet (4 sources) take 1 tablet by mouth in the morning ferrous sulfate 325 (65 Fe) MG EC tablet Take 325 mg by mouth in the morning and 325 mg before bedtime. Do not crush, chew, or split. . Active 24 hr metoprolol succinate 25 mg extended release oral tablet (4 sources) beta-Adrenergic Nicolas Start: 12-18-2022 take 1 tablet by mouth every twenty-four hours in the morning metoprolol succinate XL (Toprol-XL) 25 MG 24 hr tablet Take 25 mg by mouth in the morning. 12/18/2022 Active polyethylene glycol 3350 44083 mg powder for oral solution (4 sources) Osmotic Laxative Start: 02-18-2023 polyethylene glycol, PEG, 3350 (MiraLax) 17 GM/SCOOP powder 02/18/2023 Active tacrolimus 0.001 mg/mg topical ointment (4 sources) Calcineurin Inhibitor Immunosuppressant tacrolimus (Protopic) 0.1 % ointment 1 Application 1 (one) time each day at the same time Active terconazole 4 mg/ml vaginal cream (4 sources) Azole Antifungal Start: 01-23-2024 End: 01-30-2024 terconazole (Terazol 7) 0.4 % vaginal cream Indications: Vulvovaginal Candidiasis Insert 1 applicator into the vagina at bedtime for 7 days 45 g 2 01/23/2024 01/30/2024 Active triamcinolone acetonide 1 mg/ml topical cream (4 sources) Corticosteroid Start: 01-29-2024 triamcinolone (Kenalog) 0.1 % cream Indications: Vaginal itching Apply topically 2 (two) times a day 30 g 2 01/29/2024 Active Start: 01-23-2024 End: 01-23-2024 triamcinolone (Kenalog) 0.1 % cream Indications: Vaginal itching Apply topically 2 (two) times a day 45 g 1 01/23/2024 01/23/2024 Discontinued Completed/Discontinued Medications Medication Drug Class(es) Dates Sig (Normalized) Sig (Original) fluconazole 150 mg oral tablet (2 sources) Azole Antifungal Start: 01-23-2024 End: 01-23-2024 take 1 tablet by mouth once fluconazole (Diflucan) 150 MG tablet Indications: Vaginal itching , Acute vaginitis Take 1 tablet (150 mg) by mouth 1 (one) time for 1 dose 1 tablet 1 01/23/2024 01/23/2024 Problems Active Problems Problem Classification Problem Date Documented Da te Episodic/Chronic Cardiac dysrhythmias (1 source) Palpitations; Translations: [PALPITATIONS] Onset: 11-14-2021 Episodic Menstrual disorders (4 sources) Dysmenorrhea; Translations: [Dysmenorrhea, unspecified] 01-29-2024 Chronic Mycoses (1 source) Tinea corporis; Translations: [Tinea corporis] Onset: 05-28-2024 Episodic Unclassified (3 sources) CONTACT W/AND (SUSP) EXPOS COVID-19; Translations: [CONTACT W/AND (SUSP) EXPOS COVID-19] Onset: 03-25-2021 Past or Other Problems Problem Classification Problem Date Documented Date Episodic/Chronic Inflammatory diseases of female pelvic organs (4 sources) Acute vaginitis; Translations: [Acute vaginitis] 01-23-2024 Episodic Other female genital disorders (4 sources) Pruritus of vagina; Translations: [Other specified noninflammatory disorders of vagina] 01-23-2024 Episodic Other screening for suspected conditions (not mental disorders or infectious disease) (2 sources) Cancer cervix screening status; Translations: [Encounter for screening for malignant neoplasm of cervix] 01-29-2024 Episodic Unclassified (1 source) CONTACT W/AND (SUSP) EXPOS COVID-19; Translations: [CONTACT W/AND (SUSP) EXPOS COVID-19] Onset: 03-23-2021 Results Test Name Value Interpretation Reference Range Facility Fungus # 2 identified in Uns pecified specimen by CultureOrdered By: Angella Saldivar on 05-28-2024 Fungus identified # 2 Cx Nom (Unsp spec) Fungus # 2 identified in Unspecified specimen by Culture [facility] Fungus # 3 identified in Uns pecified specimen by CultureOrdered By: Angella Saldivar on 05-28-2024 Fungus identified # 3 Cx Nom (Unsp spec) Fungus # 3 identified in Unspecified specimen by Culture [facility] Fungus # 4 identified in Uns pecified specimen by CultureOrdered By: Angella Saldivar on 05-28-2024 Fungus identified # 4 Cx Nom (Unsp spec) Fungus # 4 identified in Unspecified specimen by Culture [facility] Fungus (Mycology) Cultureon 05-28-2024 Fungus (Mycology) Culture RIGHT UPPER ARM Preliminary report Final report RIGHT UPPER ARM Comment Trichophyton species Performed at: [address] [id number] Kier Pleater: Abhijeet Tejeda PhD, Phone: [phone] PERFORMED BY: [place] [address] PATHOLOGIST ELECTRONICS TESTER ALBERT REILLY M.D. Normal [facility] Comment on above: Performed By: #### C USUP #### [place] [id number] [place] #### MYC CULT #### [facility] , No Panel InformationOrdered By: Angella Saldivar on 05-28-2024 Mycology Susceptibility N/A F [facility] Superficial Wound Cultureon 05-28-2024 Superficial Wound Culture RIGHT UPPER ARM Light Normal Skin Viri 2 Days PERFORMED BY: [place] [address] PATHOLOGIST ELECTRONICS TESTER ALBERT REILLY M.D. Normal [facility] Comment on above: Performed By: #### C USUP #### [place] [address] [place] #### MYC CULT #### [facility] , Laboratory - Microbiology an d Antimicrobial susceptibilityon 01-26-2024 A. vaginae DNA DANYEL+probe Ql (Vag fld) Low - 0 Score [facility] Bacterial vaginosis associated bacterium 2 DNA DANYEL+probe Ql (Vag fld) Low - 0 Score [facility] C. albicans DNA DANYEL+probe Ql (Vag fld) Negative Negative [facility] C. glabrata DNA DANYEL+probe Ql (Vag fld) Positive Abnormal Negative [facility] Comment on above: Published data demon strate that up to 65% of Nuzhat glabrata identified in cases of vaginal candidiasis have decreased susceptibility to fluconazole. C. trachomatis DNA DANYEL+probe Ql (Unsp spec) Negative Negative [facility] Megasphaera sp type 1 DNA DANYEL+probe Ql (Vag fld) Low - 0 Score [facility] Comment on above: Calculate total scor e by adding the 3 individual bacterial vaginosis (BV) marker scores together. Total score is interpreted as follows: Total score 0-1: Indicates the absence of BV. Total score 2: Indeterminate for BV. Additional clinical data should be evaluated to establish a diagnosis. Total score 3-6: Indicates the presence of BV. N. gonorrhoeae DNA DANYEL+probe Ql (Vag fld) Negative Negative [facility] T. vaginalis DNA DANYEL+probe Ql (Vag fld) Negative Negative [facility] No Panel Informationon 01-25 Interpretation and review of laboratory results Abnormal [facility] Test(s) 406807- Atopobium vaginae; 975206- BVAB 2; 405779- Megasphaera 1 was developed and its performance characteristics determined [facility] It has not been cleared or approved by the Food and Drug Administration. Test(s) 291342-Fkywzjc albicans, DANYEL; 084179-Kktuabc glabrata, DANYEL was developed and its performance characteristics determined by [employer]. It has not been cleared or approved by the Food and Drug Administration. Performed at: 01 - [address] [id number] Kier Pleater: Dena Maki MD, Phone: [phone] [facility] VIT D 1 25 DIHYDROXYon 11-12 Calcitriol(1,25 di-OH Vit D) 41.6 pg/mL Normal 24.8-81.5 [facility] Comment on above: Result Comment: Pl ease note reference interval change Performed By: #### V [id number] #### [facility] [address] [place] [address] Dr. Jemma Covarrubias INSULINon 11-11-2021 Insulin 4.7 uIU/mL Normal 2.6-24.9 [facility] Comment on above: Performed By: #### I NSULIN #### [facility] [address] [place] [address] Dr. Jemma Covarrubias CBC AUTO DIFFon 11-10-2021 BASO # 0.0 103/ul Normal 0.0-0.1 [facility] Comment on above: Performed By: #### C BC #### [facility] [address] [place] [address] Dr. Jemma Covarrubias Basophils/100 WBC (Bld) 0.6 % Normal 0.2-2.0 [facility] Comment on above: Performed By: #### C BC #### [facility] [address] [place] [address] Dr. Jemma Covarrubias EO # 0.1 103/ul Normal 0.0-0.7 [facility] Comment on above: Performed By: #### C BC #### [facility] [address] [place] [address] Dr. Jemma Covarrubias Eosinophils/100 WBC (Bld) 0.7 % Critically low 0.9-7.0 [facility] Comment on above: Performed By: #### C BC #### [facility] [address] [place] [address] Dr. Jemma Covarrubias Erythrocyte distribution width (RBC) [Ratio] 13.4 % Normal 11.0-15.0 [facility] Comment on above: Performed By: #### C BC #### [facility] [address] [place] [address] Dr. Jemma Covarrubias Hematocrit (Bld) [Volume fraction] 34.4 % Critically low 36.0-48.0 [facility] Comment on above: Performed By: #### C BC #### [facility] [address] [place] [address] Dr. Jemma Covarrubias Hemoglobin (Bld) [Mass/Vol] 10.9 g/dL Critically low 12.0-16.0 [facility] Comment on above: Performed By: #### C BC #### [facility] [address] [place] [address] Dr. Jemma Covarrubias IG # 0.02 10e3/ul Normal 0.00-0.03 [facility] Comment on above: Performed By: #### C BC #### [facility] [address] [place] [address] Dr. Jemma Covarrubias IG % 0.3 % Normal 0.0-0.5 [facility] Comment on above: Performed By: #### C BC #### [facility] [address] [place] [address] Dr. Jemma Covarrubias LYMPH # 1.7 103/ul Normal 1.2-3.8 [facility] Comment on above: Performed By: #### C BC #### [facility] [address] [place] [address] Dr. Jemma Covarrubias Lymphocytes/100 WBC (Bld) 25.6 % Normal 20.5-60.0 [facility] Comment on above: Performed By: #### C BC #### [facility] [address] [place] [address] Dr. Jemma Covarrubias MANUAL DIFF REQ NO Normal [facility] Comment on above: Performed By: #### C BC #### [facility] [address] [place] [address] Dr. Jemma Covarrubias MCH (RBC) [Entitic mass] 24.7 pg Critically low 26.7-34.0 [facility] Comment on above: Performed By: #### C BC #### [facility] [address] [place] [address] Dr. Jemma Covarrubias MCHC (RBC) [Mass/Vol] 31.7 g/dL Normal 29.9-35.2 [facility] Comment on above: Performed By: #### C BC #### [facility] [address] [place] [address] Dr. Jemma Covarrubias MCV (RBC) [Entitic vol] 78.0 fL Critically low 81.0-99. 0 [facility] Comment on above: Performed By: #### C BC #### [facility] [address] [place] [address] Dr. Jemma Covarrubias MONO # 0.3 103/ul Normal 0.3-0.8 [facility] Comment on above: Performed By: #### C BC #### [facility] [address] [place] [address] Dr. Jemma Covarrubias Monocytes/100 WBC (Bld) 4.5 % Normal 1.7-12.0 [facility] Comment on above: Performed By: #### C BC #### [facility] [address] [place] [address] Dr. Jemma Covarrubias NEUT # 4.6 103/ul Normal 1.4-6.5 [facility] Comment on above: Performed By: #### C BC #### [facility] [address] [address] [address] Jemma Covarrubias Neutrophils/100 WBC (Bld) 68.3 % Normal 43.0-75.0 [facility] Comment on above: Performed By: #### C BC #### [facility] [address] [place] [address] Dr. Jemma Covarrubias Platelet mean volume (Bld) [Entitic vol] 10.2 fL Normal 9.5-13.5 [facility] Comment on above: Performed By: #### C BC #### [facility] [address] [place] [address] Dr. Jemma Covarrubias PLT 299 103/ul Normal 150-450 [facility] Comment on above: Performed By: #### C BC #### [facility] [address] [place] [address] Dr. Jemma Covarrubias RBC 4.41 106/ul Normal 4.20-5.40 [facility] Comment on above: Performed By: #### C BC #### [facility] [address] [place] [address] Dr. Jemma Covarrubias WBC 6.7 103/ul Normal 4.0-11.0 [facility] Comment on above: Performed By: #### C BC #### [facility] [address] [place] [address] Dr. Jemma Covarrubias FREE THYROXINE INDEX T7on FTI 2.64 Normal 1.30-4.50 [facility] Comment on above: Performed By: #### T SH, T7, LIPID, CMP #### [facility] [address] [place] [address] Dr. Jemma Covarrubias T3U 31.0 % Normal 30.0-39.0 [facility] Comment on above: Performed By: #### T SH, T7, LIPID, CMP #### [facility] [address] [place] [address] Dr. Jemma Covarrubias T4 [Mass/Vol] 8.50 ug/dL Normal 4.80-13.90 [facility] Comment on above: Performed By: #### T SH, T7, LIPID, CMP #### [facility] [address] [address] [address] Jemma Covarrubias GLYCOHEMOGLOBIN A1Con 2021 ADA RECOMMENDATION SEE BELOW Normal [facility] Comment on above: Result Comment: ADA RECOMMENDED LIMIT 4.0 - 6.0 ADA THERAPEUTIC TARGET < 7.0 ACTION SUGGESTED > 7.0 Performed By: #### A 1C #### [facility] [address] [address] [address] Jemma Covarrubias Glucose [Mass/Vol] 103 mg/dL Normal [facility] Comment on above: Performed By: #### A 1C #### [facility] [address] [place] [address] Dr. Jemma Covarrubias HbA1c (Bld) [Mass fraction] 5.2 % Normal 4.5-6.2 [facility] Comment on above: Performed By: #### A 1C #### [facility] [address] [place] [address] Dr. Jemma Covarrubias IRONon 11-10-2021 Iron [Mass/Vol] 28.0 ug/dL Critically low 50.0-170.0 [facility] Comment on above: Performed By: #### I LUZ MARIA #### [facility] [address] [place] [address] Dr. Jemma Covarrubias LIPID PROFILEon 11-10-2021 CHOL-HDL RATIO NORM SEE BELOW Normal [facility] Comment on above: Result Comment: 3.3 - 4.4 LOW RISK 4.4 - 7.1 AVERAGE RISK 7.1 - 11.0 MODERATE RISK >11.0 HIGH RISK Performed By: #### T SH, T7, LIPID, CMP #### [facility] [address] [place] [address] Dr. Jemma Covarrubias Cholesterol [Mass/Vol] 189 mg/dL Normal <=200 [facility] Comment on above: Performed By: #### T SH, T7, LIPID, CMP #### [facility] [address] [place] [address] Dr. Jemma Covarrubias Cholesterol in HDL [Mass/Vol] 53 mg/dL Normal 40-60 [facility] Comment on above: Performed By: #### T SH, T7, LIPID, CMP #### [facility] [address] [address] [address] Jemma Covarrubias Cholesterol in LDL [Mass/Vol] 130.8 mg/dL Normal [facility] Comment on above: Performed By: #### T SH, T7, LIPID, CMP #### [facility] [address] [address] [address] Jemma Covarrubias Cholesterol.total/Jasmin sterol in HDL [Mass ratio] 3.6 {ratio} Normal [facility] Comment on above: Performed By: #### T SH, T7, LIPID, CMP #### [facility] [address] [address] [address] Jemma Covarrubias HDL NORMAL > or = 60 mg/dl - LOW CARDIOVASCULAR RISK <40 mg/dl - HIGH CARDIOVASCULAR RISK Normal [facility] Comment on above: Performed By: #### T SH, T7, LIPID, CMP #### [facility] [address] [address] [address] Jemma Covarrubias LDL CALC NORMAL SEE BELOW Normal [facility] Comment on above: Result Comment: <100 mg/dl OPTIMAL 100 - 129 mg/dl NEAR OR ABOVE OPTIMAL 130 - 159 mg/dl BORDERLINE HIGH 160 - 189 mg/dl HIGH >190 mg/dl VERY HIGH Performed By: #### T SH, T7, LIPID, CMP #### [facility] [address] [address] [address] Jemma Covarrubias Triglyceride [Mass/Vol] 26 mg/dL Normal <=150 T [facility] Comment on above: Performed By: #### T SH, T7, LIPID, CMP #### [facility] [address] [place] [address] Dr. Jemma Covarrubias VLDL CALC 5.2 mg/dL Normal [facility] Comment on above: Performed By: #### T SH, T7, LIPID, CMP #### [facility] [address] [place] [address] Dr. Jemma Covarrubias PROF 14(COMP METB)on 022 Albumin [Mass/Vol] 4.0 g/dL Normal 3.4-5.0 [facility] Comment on above: Performed By: #### T SH, T7, LIPID, CMP #### [facility] [address] [address] [address] Jemma Covarrubias Albumin/Globulin [Mass ratio] 1.1 {ratio} Normal [facility] Comment on above: Performed By: #### T SH, T7, LIPID, CMP #### [facility] [address] [address] [address] Jemma Covarrubias ALP [Catalytic activity/Vol] 55 U/L Normal 46-116 [facility] Comment on above: Performed By: #### T SH, T7, LIPID, CMP #### [facility] [address] [address] [address] Jemma Covarrubias ALT [Catalytic activity/Vol] 21 U/L Normal 14-59 [facility] Comment on above: Performed By: #### T SH, T7, LIPID, CMP #### [facility] [address] [place] [address] Dr. Jemma Covarrubias Anion gap [Moles/Vol] 15.6 mmol/L Normal [facility] Comment on above: Performed By: #### T SH, T7, LIPID, CMP #### [facility] [address] [place] [address] Dr. Jemma Covarrubias AST [Catalytic activity/Vol] 11 U/L Critically low 15-37 [facility] Comment on above: Performed By: #### T SH, T7, LIPID, CMP #### [facility] [address] [address] [address] Jemma Covarrubias Bilirubin [Mass/Vol] 0.6 mg/dL Normal 0.2-1.0 [facility] Comment on above: Performed By: #### T SH, T7, LIPID, CMP #### [facility] [address] [address] [address] Jemma Covarrubias Calcium [Mass/Vol] 8.9 mg/dL Normal 8.5-10.1 [facility] Comment on above: Performed By: #### T SH, T7, LIPID, CMP #### [facility] [address] [address] [address] Jemma Covarrubias Chloride [Moles/Vol] 104 mmol/L Normal 98-107 [facility] Comment on above: Performed By: #### T SH, T7, LIPID, CMP #### [facility] [address] [place] [address] Dr. Jemma Covarrubias CO2 [Moles/Vol] 26.2 mmol/L Normal 21.0-32.0 [facility] Comment on above: Performed By: #### T SH, T7, LIPID, CMP #### [facility] [address] [place] [address] Dr. Jemma Covarrubias Creatinine [Mass/Vol] 0.61 mg/dL Normal 0.55-1.02 [facility] Comment on above: Performed By: #### T SH, T7, LIPID, CMP #### [facility] [address] [place] [address] Dr. Jemma Covarrubias EGFR-AF AFGHAN >=60 Normal >=60 [facility] Comment on above: Performed By: #### T SH, T7, LIPID, CMP #### [facility] [address] [place] [address] Dr. Jemma Covarrubias EGFR-NON AF AFGHAN >=60 Normal >=60 [facility] Comment on above: Performed By: #### T SH, T7, LIPID, CMP #### [facility] [address] [place] [address] Dr. Jemma Covarrubias Globulin (S) [Mass/Vol] 3.7 g/dL Normal [facility] Comment on above: Performed By: #### T SH, T7, LIPID, CMP #### [facility] [address] [place] [address] Dr. Jemma Covarrubias Glucose [Mass/Vol] 92 mg/dL Normal 74-106 [facility] Comment on above: Performed By: #### T SH, T7, LIPID, CMP #### [facility] [address] [place] [address] Dr. Jemma Covarrubias Potassium [Moles/Vol] 3.8 mmol/L Normal 3.5-5.1 [facility] Comment on above: Performed By: #### T SH, T7, LIPID, CMP #### [facility] [address] [address] [address] Jemma Covarrubias Protein [Mass/Vol] 7.7 g/dL Normal 6.4-8.2 [facility] Comment on above: Performed By: #### T SH, T7, LIPID, CMP #### [facility] [address] [address] [address] Jemma Covarrubias Sodium [Moles/Vol] 142 mmol/L Normal 136-145 [facility] Comment on above: Performed By: #### T SH, T7, LIPID, CMP #### [facility] [address] [address] [address] Jemma Covarrubias Urea nitrogen [Mass/Vol] 10.0 mg/dL Normal 7.0-18.0 [facility] Comment on above: Performed By: #### T SH, T7, LIPID, CMP #### [facility] [address] [place] [address] Dr. Jemma Covarrubias Urea nitrogen/Creatinine [Mass ratio] 16.4 mg/mg Normal [facility] Comment on above: Performed By: #### T SH, T7, LIPID, CMP #### [facility] [address] [address] [address] Jemma Covarrubias TSHon 11-10-2021 TSH 1.411 uIU/mL Normal 0.358-3.740 [facility] Comment on above: Performed By: #### T SH, T7, LIPID, CMP #### [facility] [address] [place] [address] Dr. Jemma Covarrubias Covid-19 PCR (CVDTB)on 02-25 SARS-CoV-2 (COVID-19) RNA DANYEL+probe Ql (Unsp spec) Not detected Normal NOT DETECTED [facility] Comment on above: Result Comment: This test is not yet approved or cleared by the [place] FDA. When there are no FDA-approved or cleared tests available, and other criteria are met, FDA can make tests available under an emergency access mechanism called an Emergency Use Authorization (EUA). The EUA for this test is supported by the [employer] of Health and Human Service's (HHS's) declaration [...] consistent with SARS-CoV-2. Performed By: #### C [facility] #### [facility] [address] [place] [address] Dr. Jemma Covarrubias Vital Signs Date Time Vital Sign Value Performing Clinician Faci lity 01-29-2024 10:55-0400 Body mass index (BMI) [Ratio] 26.22 kg/m2 Carole Dunbar MD Work Phone: [facility] 01-29-2024 10:55-0400 Body weight 67.13 kg Carole Dunbar MD Work Phone: [facility] 01-23-2024 11:47-0400 Body mass index (BMI) [Ratio] 26.39 kg/m2 Carole Dunbar MD Work Phone: [facility] 01-23-2024 11:47-0400 Body weight 67.59 kg Carole Dunbar MD Work Phone: [facility] 01-23-2024 11:47-0400 Diastolic blood pressure 78 mm[Hg] Carole Dunbar MD Work Phone: [facility] 01-23-2024 11:47-0400 Systolic blood pressure 128 mm[Hg] Carole Dunbar MD Work Phone: [facility] Healthcare Encounters Encounter Date Encounter Type Care Provider Facility Start: 05-28-2024 End: 05-28-2024 ambulatory Angella Saldivar [facility] Work Phone: Start: 05-28-2024 End: 05-28-2024 Departed Referred Angella Saldivar MD Work Phone: [facility] [place] Work Phone: Start: 01-29-2024 End: 01-29-2024 Office outpatient visit 15 minutes Carole Dunbar MD Work Phone: [facility] Comment on above: Screening for malign ant neoplasm of cervix; Encounter for gynecological examination without abnormal finding; Dysmenorrhea; Menorrhagia with regular cycle; Vaginal itching; Acute vaginitis Start: 01-29-2024 End: 01-29-2024 Patient encounter status Carole Dunbar MD Work Phone: [facility] Start: 01-29-2024 End: 01-29-2024 ambulatory CAROLE DUNBAR Not Available Start: 01-23-2024 End: 01-23-2024 Office outpatient visit 15 minutes Carole Dunbar MD Work Phone: [facility] Comment on above: Acute vaginitis (Nadia frederick Dx); Vaginal itching Start: 01-23-2024 End: 01-23-2024 ambulatory CAROLE DUNBAR Not Available Start: 11-14-2021 Encounter for genera l adult medical examination without abnormal findings DR MUNIR PORTILLO [facility] Start: 11-10-2021 End: 11-11-[address] MUNIR PORTILLO Facility:[facility]1 Start: 11-10-2021 End: 11-11-2021 Encounter for general adult medical examination without abnormal findings DR MUNIR PORTILLO Facility:[facility]1 Start: 04-09-[address] MUNIR PORTILLO Facility :[facility]1 Start: 03-23-2021 End: 03-23-[address] MUNIR PORTILLO Facility:[facility]1 Procedures Date Procedure Procedure Detail Performing Clinician Start: 05-28-2024 Fungal Culture Result 2 Angella Saldivar MD Work Phone: Start: 05-28-2024 Fungal Culture Result 3 Angella Saldivar MD Work Phone: Start: 05-28-2024 Fungal Culture Result 4 Angella Saldivar MD Work Phone: Start: 05-28-2024 Mycology Susceptibility Angella Saldivar MD Work Phone: Start: 01-23-2024 Iadna chlamydia trac homatis amplified probe tq Carole Dunbar MD Work Phone: Plan of Treatment Date Care Activity Detail Author Start: 02-03-2025 End: 02-03-2025 Patient encounter procedure 02/03/2025 10:30 AM EDT Office Visit [facility] [address] [place] [phone] Carole Dunbar MD [address] [place] [address] [facility] Start: 05-28-2024 Fungal Culture Result 1 Fungal Cultu re Result 1 [facility] Start: 05-28-2024 Mycology Culture Mycology Culture [facility] Start: 05-28-2024 Superficial Wound Culture Superficial Wound Culture [facility] Start: 05-28-2024 [facility] Start: 01-29-2024 End: 01-29-2024 Patient encounter procedure 01/29/2024 10:15 AM EDT Office Visit [facility] [address] [place] [phone] Carole Dunbar MD [address] [place] [address] [facility] Fungus identified in Unspecified specimen by Culture [facility] GENITOURINARY INFECT ION (HTRX) GENITOURINARY INFECTION (HTRX) Lab Routine Vaginal itching Acute vaginitis Ordered: 01/29/2024 [facility] Comment on above: Ordered: 01/29/2024 SENDOUT TEST MISCELLANEOUS [facility] SENDOUT TEST MISCELLANEOUS [facility] Lab Routine Screening for malignant neoplasm of cervix Encounter for gynecological examination without abnormal finding Ordered: 01/29/2024 [facility] Work Phone: Comment on above: Ordered: 01/29/2024 Payers Date Payer Category Payer Self-pay 2022 Unknown BCBS BCBS [id number] 2022-Present [phone] [address] [place] [id number] 1985 Unknown [id number] 1985 Unknown [id number] 1986 Unknown [id number] 1986 Unknown [id number] 1985 Unknown [id number] 1959 Self-pay [id number] 1958 Unknown [id number] 1958 Unknown [id number] Unknown [id number] Social History Date Type Detail Facility Start: 12-26-2022 Tobacco smoking status CAIS Never smoked tobacco [facility] Start: 12-26-2022 Tobacco use and exposure Smokeless tobacco non-user [facility] Start: 01-23-2024 End: 01-29-2024 Alcoholic beverage intake Ex-drinker (finding) [facility] Start: 12-26-2022 End: 03-13-2023 History of Social function [facility] Start: 12-26-2022 End: 03-13-2023 Alcohol Use Disorder Identification Test - Consumption [AUDIT-C] [facility] How often to you hav e a drink containing alcohol? Never [facility] How many standard dr inks containing alcohol do you have on a typical day? Patient does not drink [facility] Start: 1985 Sex assigned at Not on file [facility] Work Phone: Start: 05-29-2024 Sex Female (finding) [facility] Start: 1985 Sex Assigned At Female [facility] History of Present illness Narrative 01-29-2024 Carole Dunbar MD - 01/29/2024 10:15 AM EDT Note Date & Type Note Facility 01-29-2024 History of Presen t illness Narrative Images from the original note were not included. Carole Dunbar MD Obstetrics and Gynecology Patient: Radha Whitmore : 1985 (38 y.o.) Yearly Wellness Exam Date: 01/29/2024 Reason for Visit - Chief Complaint Patient presents with Gynecologic Exam LMP: Last Pap: 12/26/22- neg Complaints: 1 week follow up on vaginal itching/vaginitis. Junky algae in pool mid December Patient is still having vaginal itching Annual pap today Visit Vitals Wt 148 lb LMP 01/23/2024 (Exact Date) BMI 26.22 kg/m OB Status Having periods Smoking Status Never BSA 1.73 m History of Present Illness, Associated Treatments and Results - OB History Para Term AB Living 3 0 0 0 0 0 SAB IAB Ectopic Multiple Live Births 0 0 0 0 3 # Outcome Date GA Lbr Gabo/2nd Weight Sex Type Anes PTL Lv 3 2 1 Review of Systems - Constitutional: Negative. HENT: Negative. Eyes: Negative. Respiratory: Negative. Cardiovascular: Negative. Gastrointestinal: Negative. Endocrine: Negative. Genitourinary: Negative. Musculoskeletal: Negative. Skin: Negative. Allergic/Immunologic: Negative. Neurological: Negative. Hematological: Negative. Psychiatric/Behavioral: Negative. Allergies Allergen Reactions Penicillins Hives Gentamicin Other Reaction(s): Unknown Current Outpatient Medications: desoximetasone (Topicort) 0.25 % cream, 1 Application every 12 (twelve) hours, Disp: , Rfl: ferrous sulfate 325 (65 Fe) MG EC tablet, Take 325 mg by mouth in the morning and 325 mg before bedtime. Do not crush, chew, or split. ., Disp: , Rfl: metoprolol succinate XL (Toprol-XL) 25 MG 24 hr tablet, Take 25 mg by mouth in the morning., Disp: , Rfl: polyethylene glycol, PEG, 3350 (MiraLax) 17 GM/SCOOP powder, , Disp: , Rfl: tacrolimus (Protopic) 0.1 % ointment, 1 Application 1 (one) time each day at the same time, Disp: , Rfl: terconazole (Terazol 7) 0.4 % vaginal cream, Insert 1 applicator into the vagina at bedtime for 7 days, Disp: 45 g, Rfl: 2 Past Medical History: Diagnosis Date Abnormal Pap smear of cervix 2008, repeat was normal Anemia History of transfusion Hypertension (CMS/HCC) Mitral valve prolapse Ovarian cyst Past Surgical History: Procedure Laterality Date SECTION, LOW TRANSVERSE x2 CHOLECYSTECTOMY TONSILLECTOMY VAGINAL DELIVERY WISDOM TOOTH EXTRACTION Family History Problem Relation Name Age of Onset Bone cancer Father Social History Tobacco Use Smoking Status Never Smokeless Tobacco Never Physical Exam - General appearance, mentation, extraocular movements, facial strength and movement, hearing, upper and lower extremity strength and tone, sensation to gross testing, coordination, and gait are normal or at baseline unless noted below. Physical Exam Constitutional: Appearance: Normal appearance. Genitourinary: Genitourinary Comments: Possible clitoral atrophy -No obvious evidence of Lichen sclerosis Right Labia: No rash or lesions. Left Labia: No lesions or rash. Pelvic Douglas Score: 5/5. No vaginal discharge or erythema. No vaginal prolapse present. No vaginal atrophy present. Right Adnexa: not tender and no mass present. Left Adnexa: not tender and no mass present. No cervical lesion. Uterus is not tender. Uterus is anteverted. Breasts: Right: Normal. No mass or nipple discharge. Left: Normal. No mass or nipple discharge. HENT: Head: Normocephalic and atraumatic. Cardiovascular: Rate and Rhythm: Normal rate and regular rhythm. Pulmonary: Breath sounds: Normal breath sounds. Abdominal: General: There is no distension. Palpations: Abdomen is soft. There is no mass. Tenderness: There is no abdominal tenderness. Musculoskeletal: General: Normal range of motion. Cervical back: Neck supple. Lymphadenopathy: Cervical: No cervical adenopathy. Neurological: Mental Status: She is alert and oriented to person, place, and time. Skin: General: Skin is warm and dry. Psychiatric: Mood and Affect: Mood normal. fcbd Normal clitoral kahn / Assessment/Plan ICD-10-CM 1. Screening for malignant neoplasm of cervix Z12.4 SENDOUT TEST MISCELLANEOUS [facility] 2. Encounter for gynecological examination without abnormal finding Z01.419 SENDOUT TEST MISCELLANEOUS [facility] 3. Dysmenorrhea N94.6 4. Menorrhagia with regular cycle N92.0 5. Vaginal itching N89.8 6. Acute vaginitis N76.0 Radha was seen today for gynecologic exam. Diagnoses and all orders for this visit: Screening for malignant neoplasm of cervix - SENDOUT TEST MISCELLANEOUS [facility] Encounter for gynecological examination without abnormal finding - SENDOUT TEST MISCELLANEOUS [facility] Dysmenorrhea Menorrhagia with regular cycle Vaginal itching - triamcinolone (Kenalog) 0.1 % cream; Apply topically 2 (two) times a day - GENITOURINARY INFECTION (HTRX) Acute vaginitis - GENITOURINARY INFECTION (HTRX) Pap and exam today No abnormalities noted Results in MyChart within 72 hours 1. Vaginal itching and yeast infection - The patient has completed a course of Terazol vagianl cream and oral antifungal medication (Terconazole and Fluconazole). The yeast infection was confirmed by culture. The patient reports improvement in vaginal itching but still experiences itching around the clitoral kahn. - Plan: a) Prescribe a topical steroid cream for the clitoral kahn itching. b) Instruct the patient to apply the cream daily for two weeks and then once a week thereafter. c) Advise the patient to avoid potential irritants such as bubble baths and swimming in lakes or pools. Repeat vaginal cultures today for persistent symptoms 2. Follow-up - Plan: a) Schedule a telephone visit in two weeks to assess the patient's response to the steroid cream and discuss the results of the yeast infection culture. b) If the patient's symptoms have not improved, consider further evaluation and management. documented in this encounter [facility] History of Present illness Narrative 01-23-2024 Carole Dunbar MD - 01/23/2024 11:15 AM EDT Note Date & Type Note Facility 01-23-2024 History of Presen t illness Narrative Images from the original note were not included. Carole Dunbar MD Obstetrics and Gynecology Patient: Radha Whitmore : 1985 (38 y.o.) Exam Date: 01/23/2024 Reason for Visit - Chief Complaint Patient presents with Vaginal Itching Pt has c/o vaginal itching more so in the clitoris area than inside the vagina, maxwell discharge redness rash swelling or odor, patient stated that she was sick about 2 weeks ago and noticed it after that. Patient stated that last Saturday she used monistat 1 cream and suppository and it did not help. Visit Vitals BP 128/78 Wt 149 lb LMP 01/23/2024 (Exact Date) BMI 26.39 kg/m OB Status Having periods Smoking Status Never BSA 1.73 m History of Present Illness, Associated Treatments and Results - OB History No obstetric history on file. Constitutional: Negative. HENT: Negative. Eyes: Negative. Respiratory: Negative. Cardiovascular: Negative. Gastrointestinal: Negative. Endocrine: Negative. Genitourinary: Negative. Musculoskeletal: Negative. Skin: Negative. Allergic/Immunologic: Negative. Neurological: Negative. Hematological: Negative. Psychiatric/Behavioral: Negative. Allergies Allergen Reactions Penicillins Hives Gentamicin Other Reaction(s): Unknown Current Outpatient Medications: desoximetasone (Topicort) 0.25 % cream, 1 Application every 12 (twelve) hours, Disp: , Rfl: ferrous sulfate 325 (65 Fe) MG EC tablet, Take 325 mg by mouth in the morning and 325 mg before bedtime. Do not crush, chew, or split. ., Disp: , Rfl: fluconazole (Diflucan) 150 MG tablet, Take 1 tablet (150 mg) by mouth 1 (one) time for 1 dose, Disp: 1 tablet, Rfl: 1 metoprolol succinate XL (Toprol-XL) 25 MG 24 hr tablet, Take 25 mg by mouth in the morning., Disp: , Rfl: polyethylene glycol, PEG, 3350 (MiraLax) 17 GM/SCOOP powder, , Disp: , Rfl: tacrolimus (Protopic) 0.1 % ointment, 1 Application 1 (one) time each day at the same time, Disp: , Rfl: terconazole (Terazol 7) 0.4 % vaginal cream, Insert 1 applicator into the vagina at bedtime for 7 days, Disp: 45 g, Rfl: 2 Past Medical History: Diagnosis Date Abnormal Pap smear of cervix 2008, repeat was normal Anemia History of transfusion Hypertension (CMS/HCC) Mitral valve prolapse Ovarian cyst Past Surgical History: Procedure Laterality Date SECTION, LOW TRANSVERSE x2 CHOLECYSTECTOMY TONSILLECTOMY VAGINAL DELIVERY WISDOM TOOTH EXTRACTION Family History Problem Relation Name Age of Onset Bone cancer Father Social History Tobacco Use Smoking Status Never Smokeless Tobacco Never Physical Exam - General appearance, mentation, extraocular movements, facial strength and movement, hearing, upper and lower extremity strength and tone, sensation to gross testing, coordination, and gait are normal or at baseline unless noted below. Physical Exam Constitutional: Appearance: Normal appearance. Genitourinary: Genitourinary Comments: Normal menses Right Labia: No rash. Left Labia: No rash. No vaginal discharge. No vaginal prolapse present. No vaginal atrophy present. No cervical lesion. HENT: Head: Normocephalic and atraumatic. Neurological: Mental Status: She is alert and oriented to person, place, and time. Psychiatric: Mood and Affect: Mood normal. Behavior: Behavior normal. Assessment/Plan ICD-10-CM 1. Acute vaginitis N76.0 terconazole (Terazol 7) 0.4 % vaginal cream fluconazole (Diflucan) 150 MG tablet 2. Vaginal itching N89.8 fluconazole (Diflucan) 150 MG tablet DISCONTINUED: triamcinolone (Kenalog) 0.1 % cream Radha was seen today for vaginal itching. Diagnoses and all orders for this visit: Acute vaginitis (Primary) - terconazole (Terazol 7) 0.4 % vaginal cream; Insert 1 applicator into the vagina at bedtime for 7 days - fluconazole (Diflucan) 150 MG tablet; Take 1 tablet (150 mg) by mouth 1 (one) time for 1 dose - NuSwab Vaginitis Plus (VG+) Vaginal itching - Discontinue: triamcinolone (Kenalog) 0.1 % cream; Apply topically 2 (two) times a day - fluconazole (Diflucan) 150 MG tablet; Take 1 tablet (150 mg) by mouth 1 (one) time for 1 dose - NuSwab Vaginitis Plus (VG+) Patient presents with vulvar vaginal complaints Cultures ordered and report will be in my chart within 72 hours Terazol, fluconazole, triamcinolone cream ordered. Patient will report any increase in symptom She will report to office if symptoms worsen Follow-up Pap as soon as possible documented in this encounter [facility] Evaluation note Note Date & Type Note Facility Evaluation note Diagnosis Acute vaginitis- Primary Unspecified vaginitis and vulvovaginitis Vaginal itching Pruritus of genital organs documented in this encounter [facility] Evaluation note Note Date & Type Note Facility Evaluation note Diagnosis Screening for malignant neoplasm of cervix Screening for malignant neoplasm of the cervix Encounter for gynecological examination without abnormal finding Dysmenorrhea Menorrhagia with regular cycle Vaginal itching Pruritus of genital organs Acute vaginitis Unspecified vaginitis and vulvovaginitis documented in this encounter [facility] Evaluation note Note Date & Type Note Facility Evaluation note No assessment information availa [facility] Work Phone: Summary Purpose Family History No Family History Records FoundNo Family History Records FoundNo Family History Records Found Advance Directives No Advanced Directives Records Found Advance Directive Response Recorded Date/ Time Advance Directives No May 28, 2024 6:19pm Chief Complaint and Reason for Visit Chief Complaint Admit Date B35.4 May 28, 2024 1: 25pm Additional Source Comments INFORMATION SOURCE (unrecogn ized section and content) DATE CREATED AUTHOR 11/29/2021 [facility] DATE CREATED AUTHOR AUTHOR'S ORGANIZ ATION 01/30/2024 [facility] EPIC DATE CREATED AUTHOR AUTHOR'S ORGANIZ ATION 07/10/2024 [facility] Reason for Visit (unrecogniz ed section and content) Reason Comments Vaginal Itching Reason Comments Gynecologic Exam Care Teams (unrecognized sec tion and content) Child Care Specialist Relationship Specialty Start Date End Date Munir Portillo MD [address] [place] [address] PCP - General Family Medicine 12/26/22 Child Care Specialist Relationship Specialty Start Date End Date Munir Portillo MD [address] [place] [address] PCP - General Family Medicine 12/26/22 Team Status: Inactive Member Role Status Dates Angella Saldivar MD Attending Provider Active Start: May 28, 2024 End: May 28, 2024 Goals (unrecognized section and content) Goals may be documented in a n alternate section FOR RECORDS PERTAINING TO PATIENTS WHO ARE [...] BE BASED ON THE PRIMARY CLINICAL RECORDS. [facility] [employer] provides no warranty or guarantee of the accuracy or completeness of information in this document.
[2024-12-09 10:47] LABS: Hematocrit 36.3 % (36.0-48.0); Hemoglobin 12.0 g/dL (12.0-16.0); Immature Granulocytes Abs Auto 0.01 10^3/uL (0.00-0.03); Immature Granulocytes Pct Auto 0.1 % (0.0-0.5); Lymphocytes Absolute Auto 1.6 10^3/uL (1.2-3.8); Mean Corpuscular HGB Conc 33.1 g/dL (29.9-35.2); Mean Corpuscular Hemoglobin 26.9 pg (26.7-34.0); Mean Corpuscular Volume 81.4 fL (81.0-99.0); Platelet Count 275 10^3/uL (150-450); Red Blood Count 4.46 10^6/uL (4.20-5.40); White Blood Count 7.5 10^3/uL (4.0-11.0)
[2024-12-09 11:04] LABS: Iron 18.0 ug/dL (50.0-170.0)
[2024-12-09 11:11] LABS: Alanine Aminotransferase 14 U/L (14-59); Albumin Globulin Ratio 1.1; Albumin Level 4.0 g/dL (3.4-5.0); Alkaline Phosphatase 65 U/L (46-116); Anion Gap 14.6; Aspartate Amino Transferase 13 U/L (15-37); Blood Urea Nitrogen 11.0 mg/dL (7.0-18.0); Calcium 8.7 mg/dL (8.5-10.1); Carbon Dioxide 24.1 mmol/L (21.0-32.0); Chloride 106 mmol/L (98-107); Cholesterol 164 mg/dL (<=200); Estimated GFR (African America >60 (>=60 mL/min/1.73m^2); Estimated GFR (Non-African Ame >60 (>=60 mL/min/1.73m^2); Free T3 2.76 pg/mL (2.18-3.98); Globulin 3.6 g/dL; Glucose 86 mg/dL (74-106); HDL Cholesterol 57 mg/dL (40-60); Potassium 3.7 mmol/L (3.5-5.1); Sodium 141 mmol/L (136-145); Thyroid Stimulating Hormone 3.001 uIU/mL (0.358-3.740); Total Protein 7.6 g/dL (6.4-8.2); Triglycerides 70 mg/dL (<=150); VLDL CHOLESTEROL 14.0 mg/dL
== END 2024-12-09 10:00 | disposition home or self-care (01) ==
PROVIDERS: PCP Family Medicine; Visit Provider Family Medicine
DX: Z00.00 Encounter for general adult medical examination without abnormal findings (principal)
CPT/HCPCS: 36415; 80053; 80061; 83036; 83525; 83540; 84436; 84443; 84481; 85025

== ENCOUNTER 2024-12-15 10:54 | Outpatient (OUT) | payer BC, SELFPAY ==
--- OUTSIDE RECORDS SUMMARY | 2024-01-20 14:36 | XMS_ITS ---
Author Organization [facility] [place] Address [address] [place] [address] Care Team Providers Care Pantomimist Name Role Phone Juaquin Portillo Primary Care Provider REASON FOR VISIT Lab results Encounters Encounter Location Date Provider Diagnosis [facility] [address] [place] [address] 01/20/2024 Juaquin Portillo Plan Of Treatment No Information Progress Notes * Cierra WHITMOREaamirjustin LDOB:[birth year] (38 yo F)Acc No.[id number]:01/20/2024 Patient: Cierra GRACIAaamirjustin Salazar :1985 A ge:38 Y S ex:Female Address:[address] [place] [address] * true * Date: Generated for Alyssiai ng/Facristelg/eTransmitting on: 0 12/15/2024 10:56 AM EDT
--- OUTSIDE RECORDS SUMMARY | 2024-12-09 05:00 | XMS_ITS ---
Author Organization [facility] in [place] Address [address] [place] [address] Care Team Providers Care Clipper Machine Name Role Phone Juaquin Portillo Primary Care Provider [phone] Allergies Allergen (clinical drug ingredient) Drug/Non Drug Allergy documented on EMR Reaction Allergy Type Onset Date Status Effexor body tingling Drug Allergy Act erin amoxicillin Amoxicillin hives Drug Allergy Act erin gentamicin Gentamicin rash Drug Allergy Activ e ciprofloxacin Ciprofloxacin chest pain Drug Allergy Active REASON FOR VISIT wellness due for yearly labs as well, HR high and BP low- monitoring at home has been 106/65 at home- usually takes it when she gets up and then throughout the day, A couple weeks ago it showed she had some palpitations Medications Medication SIG (Take, Route, Frequency, Duration) Notes Start Date End Date Status dilTIAZem HCl ER Coated Beads 120 MG 1 capsule Orally Once a day for 30 days 12/09/2024 Active Lactulose 20 GM/30ML 30 ml Orally bid fo r 30 days 12/09/2024 Active Social History Tobacco Use: Social History Observation Description Date Details (start date - stop date) Never Smoker NA - NA Tobacco Use/Smoking Question Answer Notes Patient is a nonsmoker Problems Problem Type SNOMED Code ICD Code Onset Dates Problem Status W/U Status Risk Notes Problem Seasonal allergic reaction (J30.2) Active confirmed Problem Constipation (82031119) Constipation (K59.00) Active confirmed Vital Signs Weight 147.8 lbs 12/09/2024 Height 63 in 12/09/2024 Blood pressure systolic 134 mm Hg 07/16/20 25 Blood pressure diastolic 80 mm Hg 025 Heart Rate 93 /min 12/09/2024 BMI 26.18 kg/m2 12/09/2024 Oximetry 99 % 12/09/2024 Encounters Encounter Location Date Provider Diagnosis [facility] [address] [place] [address] 12/09/2024 Juaquin Portillo Well adult Z00.00 ; Constipation K59.00 and Seasonal allergic reaction J30.2 Assessments Encounter Date Diagnosis (ICD Code) Assessment Notes Treatment Notes Treatment Clinical Notes Section Notes 12/09/2024 Well adult (ICD-10 - Z00.00) 12/09/2024 Constipation (ICD-10 - K59.00) 12/09/2024 Seasonal allergic reaction (ICD-10 - J30.2) Plan Of Treatment Medication Medication Name Sig Start Date Stop Date Notes dilTIAZem HCl ER Coated Bead s 120 MG 1 capsule Orally Once a day for 30 days 12/09/2024 Lactulose 20 GM/30ML 30 ml Orally bid fo r 30 days 12/09/2024 Pending Test Test Name Order Date HEMOGLOBIN A1C (GLYCO) 12/09/2024 IRON, TOTAL 12/09/2024 LIPID PANEL (CHOL/TRIG/HDL/LDL) 12/10/19 25 Insulin Level 12/09/2024 THYROID PANEL (T4/TSH/FREE T3) 5 MM screening mammo BI 12/09/2024 CMP (COMP MET HOLLIS) w/eGFR CKD-EPI 2024 CBC WITH DIFF 12/09/2024 Progress Notes * Cierra WHITMOREaamirjustin LDOB:[birth year] (38 yo F)Acc No.[id number]:12/09/2024 Progress Note Patient: Radha GRACIA Provider: Kris Portillo ([facility])MD :1985 A ge:38 Y S ex:Female Date:12/09/2024 Address:[id number] Check In:08:50 AM ESTCheck O ut:09:51 AM EST Subjective: * Chief Complaints: * W ellness due for yearly labs as wellHR high and BP low- monitoring at home has been 106/65 at home- usually takes it when she gets up and then throughout the Octavio couple weeks ago it showed she had some palpitations * ROS: E ENT: hearing changes d enies. v isual changes d enies.?non-healing mouth sores d enies. s wollen glands or neck lumps d enies. h oarseness d enies. s ore throat d enies. d ifficulty swallowing d enies. n ose bleeds d enies. n bozena congestion d enies. e ar ache d enies. e ar discharge?denies. r inging in ears d enies. l ight sensitivity d enies. e ye pain d enies. b lurring d enies. e ye irritation d enies. d ouble vision d enies.?vision loss d enies. G eneral/Constitutional: Sweats: D enies. F atigue d enies. S leep problems d enies. A norexia d enies. M alaise d enies. W eight loss d enies.?Fatigue or Weakness d enies. F ever or Chills d enies. C ardiovascular: Shortness of Breath w/lying flat d enies. L ightheadedness/dizziness d enies. C hest tightness/ heavy pressure d enies. S welling of legs, ankles, or feet d enies. W aking up with shortness of breath d enies. C hest pain denies. P alpitations d enies. W eight gain d enies. R espiratory: Chronic or frequent cough d enies. C oughing up blood?denies. D ifficulty breathing d enies. P roductive cough d enies. S noring?denies. S hortness of breath that awakens from sleep (PND) d enies. C hest pain d enies. S putum production d enies. W heezing d enies. M usculoskeletal: Joint pain d enies. J oint Fluid d enies. B ack pain d enies. K nee pain d enies. N margot pain d enies. J oint Stiffness d enies. M uscle cramps d enies. W eakness of muscles d enies. A rthritis d enies. M uscle aches d enies. P ain in shoulder(s) d enies. S wollen joints d enies. * Active Problem List Z00.00 Well adult Modified On:01/29/2023W/U Status:confirmed L03.90 Cellulitis Modified On:11/01/2023/U Status:confirmed K59.00 Constipation Modified On:12/09/2024/U Status:confirmed J30.2 Seasonal allergic re action Modified On:12/09/2024/U Status:confirmed * Medical History: * Surgical History: G allbladder x2 * Hospitalization/Major Diagno stic Procedure: D enies Past Hospitalization * Family History: F ather: unknown, Cancer- Bone Marrow, diagnosed with Other malignant neoplasm of unspecified site, Unspecified essential hypertension. M other: unknown, anxiety. B rother(s): unknown. Sister(s): unknown. S on(s): alive. 3 son(s) - healthy. . * Social History: T obacco Use: T obacco Use/Smoking P atient is a n onsmoker * Medications: D iscontinuedDesoximetasone 0.25 % Cream 1 application Externally Twice a day Metoprolol Succinate ER 25 MG Tablet Extended Release 24 Hour TAKE 1 TABLET BY MOUTH EVERY DAY Mupirocin 2 % Ointment 1 application Externally Twice a day Potassium Chloride ER 10 MEQ Tablet Extended Release 1 tablet with food Orally Twice a day Tacrolimus 0.1 % Ointment 1 application Externally Once a day Triamcinolone Acetonide 0.1 % Cream 1 application Externally Twice a day valACYclovir HCl 1 GM Tablet 1 tablet Orally TID Medication List reviewed and reconciled with the patientDiscontinued Desoximetasone 0.25 % Cream 1 application Externally Twice a day Discontinued Metoprolol Succinate ER 25 MG Tablet Extended Release 24 Hour TAKE 1 TABLET BY MOUTH EVERY DAY Discontinued Mupirocin 2 % Ointment 1 application Externally Twice a day Discontinued Potassium Chloride ER 10 MEQ Tablet Extended Release 1 tablet with food Orally Twice a day Discontinued Tacrolimus 0.1 % Ointment 1 application Externally Once a day Discontinued Triamcinolone Acetonide 0.1 % Cream 1 application Externally Twice a day Discontinued valACYclovir HCl 1 GM Tablet 1 tablet Orally TID Medication List reviewed and reconciled with the patient * Allergies: A moxicillin: hivesCiprofloxacin: chest painEffexor: body tinglingGentamicin: rashno[Allergies Verified] Objective: * Vitals: W t:147.8lbs, Ht: 63 in, BP:134/80mm Hg, HR:93/min, BMI:26.18Index, Oxygen sat %:99%, Ht-cm: 160.02 cm, Wt-k.04 kg. * Examination: P hysical Exam: GENERAL: w ell developed, well nourished, in no acute distress. HEAD: n ormocephalic/atraumatic. EYES: p upils equal, round and reactive to light, conjunctivae and sclerae normal. EARS: n o deformity or lesion of external ear, canals and TM appear normal bilaterally, TM's intact, not inflamed with normal light reflex, hearing grossly normal to conversational speech. NOSE: n o deformity, discharge, inflammation, or lesions.? MOUTH: m ucous membranes moist, normal oropharynx and posterior pharynx without lesions or exudates, tongue normal, dentition normal. NECK: n margot supple, no masses or palpable cervical nodes, trachea midline, thyroid without nodules, masses, tenderness, or enlargement. CHEST: n o chest wall deformity, no chest wall tenderness.? LUNGS: n ormal respiratory effort and clear to auscultation, no wheezes, rales, or rhonchi, good air exchange. CARDIO: r egular rate and rhythm, normal S1 and S2, nor murmur, rub, or gallop. PULSES: n ormal capillary refill. ABDOMEN: s oft, non-distended, non-tender, no masses. MUSCULOSKELETAL: n o deformity or scoliosis noted, normal range of motion, joints normal, no erythema, edema, effusion, or ecchymosis. EXTREMITY: n o clubbing, cyanosis, edema, or deformity with normal ROM in both upper and lower bilateral extremities. NEUROLOGIC: g rossly normal. SKIN: n o rashes, ulcerations, or suspicious lesions. LYMPH NODES: n o cervical adenopathy, nodes normal. MENTAL STATUS: a lert and oriented x3, normal mood and affect. Assessment: * Assessment: 1. W ell adult - Z00.00 (Primary) 2 . C onstipation - K59.00 ?3. S easonal allergic reaction - J30.2 Plan: * Treatment: * Procedure Codes: * Preventive Medicine: Screenings/Counseling: B ME ACTION PLAN Above Normal BMI Follow-up D ietary management education, guidance, and counseling * * Sign off status: Completed Visit Status: C HK (Check Out) true * Provider: Kris Portillo ([facility])MD Date: 0 12/09/2024 Generated for Printi ng/Faxing/eTransmitting on: 12/15/2024 10:56 AM EDT History and Physical Notes * Examination Category Sub-Category Detail Notes Category Not es Physical Exam GENERAL: well developed, well nourished, in no acute distress HEAD: normocephalic/atraum atic EYES: pupils equal, round and reactive to light, conjunctivae and sclerae normal EARS: no deformity or lesi on of external ear, canals and TM appear normal bilaterally, TM's intact, not inflamed with normal light reflex, hearing grossly normal to conversational speech NOSE: no deformity, discha rge, inflammation, or lesions MOUTH: mucous membranes lia st, normal oropharynx and posterior pharynx without lesions or exudates, tongue normal, dentition normal NECK: neck supple, no mass es or palpable cervical nodes, trachea midline, thyroid without nodules, masses, tenderness, or enlargement CHEST: no chest wall deform ity, no chest wall tenderness LUNGS: normal respiratory e ffort and clear to auscultation, no wheezes, rales, or rhonchi, good air exchange CARDIO: regular rate and rhy thm, normal S1 and S2, nor murmur, rub, or gallop PULSES: normal capillary ref ill ABDOMEN: soft, non-distended, non-tender, no masses RECTAL: MUSCULOSKELETAL: no deformity or scol iosis noted, normal range of motion, joints normal, no erythema, edema, effusion, or ecchymosis EXTREMITY: no clubbing, cyanosi s, edema, or deformity with normal ROM in both upper and lower bilateral extremities NEUROLOGIC: grossly normal SKIN: no rashes, ulceratio ns, or suspicious lesions LYMPH NODES: no cervical adenopat hy, nodes normal MENTAL STATUS: alert and oriented x 3, normal mood and affect
--- OUTSIDE RECORDS SUMMARY | 2024-12-09 16:05 | XMS_ITS ---
Author Organization [facility] in [place] Address [address] [place] [address] Care Team Providers Care Oil Extractor Name Role Phone Bandar Juaquin Primary Care Provider REASON FOR VISIT labs Medications Medication SIG (Take, Route, Frequency, Duration) Notes Start Date End Date Status Ferrous Sulfate 325 (65 Fe) MG 1 tablet Orally twice daily for 30 days 12/10/2024 Active Encounters Encounter Location Date Provider Diagnosis [facility] [address] [place] [address] 12/09/2024 Juaquin Portillo Plan Of Treatment Medication Medication Name Sig Start Date Stop Date Notes Ferrous Sulfate 325 (65 Fe) MG 1 tablet Orally twice daily for 30 days 12/10/2024 Progress Notes * Cierra WHITMOREaamirjustin LDOB:[birth year] (38 yo F)Acc No.[id number]:12/09/2024 Patient: Radha GRACIA :1985 A ge:38 Y S ex:Female [address] [place] [address] * Refills Start Ferrous Sulfate Tablet, 325 (65 Fe) MG, Orally, 60 Tablet, 1 tablet, twice daily, 30 days, Refills=11 * true * Date: Generated for Printi ng/Faxing/eTransmitting on: 0 12/15/2024 10:56 AM EDT
--- OUTSIDE RECORDS SUMMARY | 2024-12-15 10:56 | XMS_ITS | Encounter Summary ---
Author Organization [facility] Address [address] [place] [address] Care Team Providers Care Carpenter Supervisor Name Role Phone Judah Portillo MD Primary Care Provider [phone] Encounter Details Date Type Department Care Team (Late Contact Info) Description 07/17/2023 Orders Only [facility] [address] [facility] [address] [place] [address] Jay Wiseman MD [address] [facility] [address] [place] [address] Social History Tobacco Use Types Packs/Day Years Used Date Smoking Tobacco: Never Smokeless Tobacco: Never Alcohol Use Standard Drinks/Week Comments Not Currently 0 (1 standard drink = 0.6 oz pur e alcohol) AUDIT-C Answer Date Recorded Q1: How often do you have a drink containing alcohol? Never 03/13/2023 Q2: How many drinks containi ng alcohol do you have on a typical day when you are drinking? Patient does not drink Q3: How often do you have si x or more drinks on one occasion? Never 03/13/2023 PHQ-2 Answer Date Recorded Patient Health Questionnaire-2 Score 0 12/26/2022 Comments No Sex and Gender Information Value Date Recorded Sex Assigned at Not on file Legal Sex Female 11:23 PM EDT Gender Identity Not on file Sexual Orientation Not on file documented as of this encounter Plan of Treatment Upcoming Encounters Date Type Department Care Team (Late st Contact Info) Description 02/03/2025 10:30 AM EDT Office Visit [facility] [address] [facility] [address] [place] [address] Jay Wiseman MD [address] [place] [address] documented as of this encounter Procedures Procedure Name Priority Date/Time Associated Diagnosis Comments ULTRASOUND : TRANSVAGINAL Routine 2022 1:54 PM EDT documented in this encounter Results * ULTRASOUND : TRANSVAGINAL (01/14/2023 1:54 PM EDT) Anatomical Region Laterality Modality Radiographic Jessica ging us Jay Wiseman MD IMG XR PROCEDURES Final Result documented in this encounter Visit Diagnoses Not on filedocumented in this encounter Care Teams Carpenter Supervisor Relationship Specialty Start Date End Date Judah Portillo MD PCP - General Family Medicine 12/26/22 documented as of this encounter
--- OUTSIDE RECORDS SUMMARY | 2024-12-15 10:56 | XMS_ITS | Encounter Summary ---
Author Organization [facility] Address [address] [place] [address] Care Team Providers Care Asp Net C Developer Name Role Phone Judah Portillo MD Primary Care Provider [phone] Encounter Details Date Type Department Care Team (Late st Contact Info) Description 03/13/2023 Abstract [facility] [address] [facility] [address] [place] [id number] Jay Wiseman MD [address] [facility] [address] [place] [address] Social History Tobacco Use Types Packs/Day Years [...] on file Sexual Orientation Not on file COVID-19 Exposure Response Date Recorded In the last 10 days, have yo u been in contact with someone who was confirmed or suspected to have Coronavirus/COVID-19? No / Unsure 03/06/2023 10:00 AM EDT documented as of this encounter Functional Status * Audit-C Score Answer Date of Assessment Author 0 03/13/2023 1:43 PM EDT Nelson Wang MA * Question Answer Date of Assessment Author Q1: How often do you have a drink containing alcohol? Never 03/13/2023 1:43 PM EDT Carolyn Wang M A Q2: How many drinks containing alcohol do you have on a typical day when you are drinking? Patient does not drink 03/13/2023 1:43 PM EDT Carolyn Wang MA Q3: How often do you have six or more drinks on one occasion? Never 03/13/2023 1:43 PM EDT Carolyn Wang M A documented as of this encounter Plan of Treatment Upcoming Encounters Date Type Department Care Team (Late st Contact Info) Description 02/03/2025 10:30 AM EDT Office Visit [facility] [address] [facility] [address] [place] [address] Jay Wiseman MD [address] [facility] [address] [place] [address] documented as of this encounter Visit Diagnoses Not on filedocumented in this encounter Care Teams Asp Net C Developer Relationship Specialty Start Date End Date Judah Portillo MD PCP - General Family Medicine 12/26/22 documented as of this encounter
--- OUTSIDE RECORDS SUMMARY | 2024-12-15 10:56 | XMS_ITS | Clinical Summary ---
Author Organization [facility] Address [address] [place] [address] Care Team Providers Care Cleat Blanker Name Role Phone Judah Portillo MD Primary Care Provider [phone] Allergies Active Allergy Reactions Criticality Noted Date Comments Gentamicin 11/16/2013 Other Reaction(s): Unknown Penicillins Hives Medium 03/13/2013 Medications metoprolol succinate XL (Toprol-XL) 25 MG 24 hr tablet Take 25 mg by mouth in the morning. 3 Active ferrous sulfate 325 (65 Fe) MG EC tablet Take 325 mg by mouth in the morning and 325 mg before bedtime. Do not crush, chew, or split. . Active polyethylene glycol, PEG, 3350 (MiraLax) 17 GM/SCOOP powder 3 Active tacrolimus (Protopic) 0.1 % ointment 1 Application 1 (one) time each day at the same time Active desoximetasone (Topicort) 0.25 % cream 1 Application every 12 (twelve) hours Active triamcinolone (Kenalog) 0.1 % creamIndication s:Vaginal itching Apply topically 2 (two) times a day 30 g 2 4 Active Family History Medical History Relation Name Comments Bone cancer Father Relation Name Status Comments Father Alive Mother Alive Social History Tobacco Use Types Packs/Day Years Used Date Smoking Tobacco: Never Smokeless Tobacco: Never Tobacco Cessation:Counseling Given: Not Answered Alcohol Use Standard Drinks/Week Comments Not Currently [...] on file Sexual Orientation Not on file Last Filed Vital Signs Vital Sign Reading Time Taken Comments Blood Pressure 128/78 01/23/2024 11:47 AM EDT Pulse - - Temperature - - Respiratory Rate - - Oxygen Saturation - - Inhaled Oxygen Concentration - - Weight 67.1 kg (148 lb) 01/29/2024 10:55 AM EDT Height 160 cm (5' 3 ) 12/26/2022 3:39 PM EDT Body Mass Index 26.22 12/26/2022 3:39 PM EDT Plan of Treatment Upcoming Encounters Date Type Department Care Team (Late st Contact Info) Description 02/03/2025 10:30 AM EDT Office Visit [facility] [address] [facility] [address] [place] [address] Jay Wiseman MD [address] [facility] [address] [place] [address] Insurance [facility] Care Teams Cleat Blanker Relationship Specialty Start Date End Date Judah Portillo MD PCP - General Family Medicine 12/26/22
--- OUTSIDE RECORDS SUMMARY | 2024-12-15 10:56 | XMS_ITS | Clinical Summary ---
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 Family History Medical History Relation Comments Hypertension Maternal Grandmother Osteoporosis Maternal Uncle Lipids Mother Hypertension Paternal Grandmother Relation Status Comments Brother Alive Father Alive Maternal Grandfather Alive Maternal Grandmother Alive Maternal Uncle Mother Alive Paternal Grandfather Alive Paternal Grandmother Alive Sister Alive Son 1 Alive Son 2 Alive Son 3 Alive Social History Tobacco Use Types Packs/Day Years Used Date Smoking Tobacco: Never Smokeless Tobacco: Never Alcohol Use Standard Drinks/Week Comments No 0 (1 standard drink = 0.6 oz pur e alcohol) Comments Unknown Sex and Gender Information Value Date Recorded Sex Assigned at Not on file Legal Sex Female 8:56 AM EDT Gender Identity Not on file Sexual Orientation Not on file Last Filed Vital Signs Vital Sign Reading Time Taken Comments Blood Pressure 136/90 11/16/2013 10:35 AM EDT Pulse 107 11/16/2013 10:35 AM EDT Temperature 37.1 C (98.8 F) 11/16/2013 10:35 AM EDT Respiratory Rate 14 11/16/2013 10:35 AM EDT Oxygen Saturation 100% 11/16/2013 10:35 AM EDT Inhaled Oxygen Concentration - - Weight 67.1 kg (148 lb) 11/16/2013 10:35 AM EDT Height 160 cm (5' 3 ) 11/16/2013 10:35 AM EDT Body Mass Index 26.22 11/16/2013 10:35 AM EDT Plan of Treatment Health Maintenance Due Date Last Done Comments Anxiety Screening 2004 Depression Screening 2004 HIV Screening 2004 Hepatitis C Screening 2004 DTaP,Tdap,Td Vaccine (1 - Tdap) 2005 Hepatitis B Vaccine (1 of 3 - 19+ 3-dose series) 12/30 Cervical Cancer Screening 12/31/2007 Covid-19 Vaccine (1 - 2023- season) 2024 Influenza Vaccine (#1) [address] [place] [address] [address] Care Teams Diesel Dinkey Operator Relationship Specialty Start Date End Date Judah Portillo MD PCP - General Family Medicine 03/13/13
--- NOTE | 2024-12-15 10:57 | MM_ITS ---
Patient Name: JIMI OSEGUERA MR#: [id number] : 1985 Exam Date: 12/15/2024 Ordering Doctor: DR MUNIR FERNÁNDEZ . RADIOLOGY REPORT PROCEDURE: MM TOMOSYNTHESIS SCREENING BI COMPARISON: None. INDICATIONS: Screening Calculator Name NCI Breast Cancer Risk Assessment Tool 5 Year Breast Cancer Risk 0.40% Lifetime Breast Cancer Risk 10.00% Personal Breast Cancer No Personal Ovarian Cancer No Treatments None Family Cancers Father with lymphoma cancer at age 28. LOCATION: [facility] BREAST COMPOSITION: The breasts are heterogeneously dense, which may obscure small masses. FINDINGS: DIAGNOSTIC CATEGORY 1--NEGATIVE. RIGHT BREAST: No significant suspicious finding. LEFT BREAST: No significant suspicious finding. RECOMMENDATIONS: ROUTINE MAMMOGRAM AND CLINICAL EVALUATION IN 12 MONTHS. PLEASE NOTE: A NORMAL MAMMOGRAM DOES NOT EXCLUDE THE POSSIBILITY OF BREAST CANCER. A CLINICALLY SUSPICIOUS PALPABLE LUMP SHOULD BE BIOPSIED. Dictated by: Ousmane Camacho DO on 12/15/2024 at 15:58 Approved by: Ousmane Camacho DO on 12/15/2024 at 16:01
--- OUTSIDE RECORDS SUMMARY | 2024-12-15 10:57 | XMS_ITS | Patient Health Record ---
Author Organization [facility] [place] Address [address] [place] [address] Care Team Providers Care Technology And Engineering Teacher Name Role Phone Juaquin Portillo Primary Care Provider [phone] Allergies Allergen (clinical drug ingredient) Drug/Non Drug Allergy documented on EMR Reaction Allergy Type Onset Date Status Effexor body tingling Drug Allergy Act erin amoxicillin Amoxicillin hives Drug Allergy Act erin gentamicin Gentamicin rash Drug Allergy Activ e ciprofloxacin Ciprofloxacin chest pain Drug Allergy Active Results Component Value Reference Range Notes FREE T3 Reviewed date:12/09/2024 08:06:08 PM Interpretation: Performing Lab: Notes/Report: [facility] , Free T3 2.76 2.18-3.98 pg/mL Performing Lab: see note ML - [facility] LB GLYCOHEMOGLOBIN A1C Reviewed date:12/09/2024 08:06:08 PM Interpretation: Performing Lab: Notes/Report: [facility] , Glycohemoglobin A1C 4.5 4.5-6.2 % ADA THERAPEUTIC TARGET < 7.0 ADA RECOMMENDED LIMIT 4.0 - 6.0 > 7.0 ACTION SUGGESTED Estimated Average Glucose 82 Performing Lab: see note ML - [facility] LB INSULIN Reviewed date:12/10/2024 06:05:50 PM Interpretation: Performing Lab: [facility]Report: [facility] Insulin 4.9 2.6-24.9 uIU/mL Candy Counter Clerk: Abhijeet Tejeda PhD, Phone: [phone] [address] [place], [place] [id number] Performed at: [facility] Performing Lab: see note LC - [facility] LB IRON Reviewed date:12/09/2024 08:06:08 PM Interpretation: Performing Lab: Notes/Report: [facility] , Iron 18.0 50.0-170.0 ug/dL Performing Lab: see note ML - [facility] LB LIPID PROFILE Reviewed date:12/09/2024 08:06:08 PM Interpretation: Performing Lab: Notes/Report: [facility] , Triglycerides 70 <=150 mg/dL Cholesterol 164 <=200 mg/dL HDL Cholesterol 57 40-60 mg/dL <40 mg/dl - HIGH CARDIOVASCULAR RISK > or =60 mg/dl - LOW CARDIOVASCULAR RISK LDL Cholesterol Calculated 93.0 >190 mg/dl VERY HIGH 100-129 mg/dl NEAR OR ABOVE OPTIMAL 160-189 mg/dl HIGH <100 mg/dl OPTIMAL 130-159 mg/dl BORDERLINE HIGH VLDL CHOLESTEROL 14.0 Chol HDL Ratio 2.9 7.1 - 11.0 MODERATE RISK 4.4 - 7.1 AVERAGE RISK 3.3 - 4.4 LOW RISK >11.0 HIGH RISK Performing Lab: see note ML - [facility] LB PROF 14(COMP METB) Reviewed date:12/09/2024 08:06:08 PM Interpretation: Performing Lab: Notes/Report: [facility] , Sodium 141 136-145 mmol/L Potassium 3.7 3.5-5.1 mmol/L Chloride 106 98-107 mmol/L Carbon Dioxide 24.1 21.0-32.0 mmol/L Anion Gap 14.6 Glucose 86 74-106 mg/dL Blood Urea Nitrogen 11.0 7.0-18.0 mg/dL Creatinine 0.44 0.55-1.02 mg/dL Estimated GFR ( Ute >60 >=60 mL/min/1.73m 2 Estimated GFR (Non- Eboni >60 >=60 mL/min/1.73m 2 BUN Creatinine Ratio 25.0 Calcium 8.7 8.5-10.1 mg/dL Bilirubin Total 0.3 0.2-1.0 mg/dL Aspartate Amino Transferase 13 15-37 U/L Alanine Aminotransferase 14 14-59 U/L Alkaline Phosphatase 65 46-116 U/L Total Protein 7.6 6.4-8.2 g/dL Albumin Level 4.0 3.4-5.0 g/dL Globulin 3.6 Albumin Globulin Ratio 1.1 Performing Lab: see note ML - [facility] LB T4 Reviewed date:12/09/2024 08:06:08 PM Interpretation: Performing Lab: Notes/Report: [facility] , T4 Thyroxine 10.20 4.80-13.90 ug/dL Performing Lab: see note ML - [facility] LB TSH Reviewed date:12/09/2024 08:06:08 PM Interpretation: Performing Lab: Notes/Report: [facility] , Thyroid Stimulating Hormone 3.001 0.358-3.740 u IU/mL Performing Lab: see note ML - [facility] LB CBC AUTO DIFF Reviewed date:12/09/2024 08:06:08 PM Interpretation: Performing Lab: Notes/Report: [facility] , White Blood Count 7.5 4.0-11.0 10 3/uL Red Blood Count 4.46 4.20-5.40 10 6/uL Hemoglobin 12.0 12.0-16.0 g/dL Hematocrit 36.3 36.0-48.0 % Mean Corpuscular Volume 81.4 81.0-99.0 fL Mean Corpuscular Hemoglobin 26.9 26.7-34.0 pg Mean Corpuscular HGB Conc 33.1 29.9-35.2 g/dL Red Cell Distribution Width 14.1 11.0-15.0 % Platelet Count 275 150-450 10 3/uL Mean Platelet Volume 11.8 9.5-13.5 fL Neutrophils Percent Auto 73.1 43.0-75.0 % Lymphocytes Percent Auto 21.9 20.5-60.0 % Monocytes Percent Auto 4.0 1.7-12.0 % Eosinophils Percent Auto 0.5 0.9-7.0 % Basophils Percent Auto 0.4 0.2-2.0 % Immature Granulocytes Pct Auto 0.1 0.0-0.5 % Neutrophils Absolute Auto 5.4 1.4-6.5 10 3/uL Lymphocytes Absolute Auto 1.6 1.2-3.8 10 3/uL Monocytes Absolute Auto 0.3 0.3-0.8 10 3/uL Eosinophils Absolute Auto 0.0 0.0-0.7 10 3/uL Basophils Absolute Auto 0.0 0.0-0.1 10 3/uL Immature Granulocytes Abs Auto 0.01 0.00-0.03 10 3/uL Performing Lab: see note ML - [facility] LB CBC AUTO DIFF Reviewed date:01/20/2024 06:37:14 PM Interpretation: Performing Lab: Notes/Report: [facility] , White Blood Count 8.4 4.0-11.0 10 3/uL Red Blood Count 4.41 4.20-5.40 10 6/uL Hemoglobin 12.6 12.0-16.0 g/dL Hematocrit 37.5 36.0-48.0 % Mean Corpuscular Volume 85.0 81.0-99.0 fL Mean Corpuscular Hemoglobin 28.6 26.7-34.0 pg Mean Corpuscular HGB Conc 33.6 29.9-35.2 g/dL Red Cell Distribution Width 12.6 11.0-15.0 % Platelet Count 285 150-450 10 3/uL Mean Platelet Volume 10.4 9.5-13.5 fL Neutrophils Percent Auto 71.6 43.0-75.0 % Lymphocytes Percent Auto 23.1 20.5-60.0 % Monocytes Percent Auto 4.5 1.7-12.0 % Eosinophils Percent Auto 0.5 0.9-7.0 % Basophils Percent Auto 0.1 0.2-2.0 % Immature Granulocytes Pct Auto 0.2 0.0-0.5 % Neutrophils Absolute Auto 6.0 1.4-6.5 10 3/uL Lymphocytes Absolute Auto 1.9 1.2-3.8 10 3/uL Monocytes Absolute Auto 0.4 0.3-0.8 10 3/uL Eosinophils Absolute Auto 0.0 0.0-0.7 10 3/uL Basophils Absolute Auto 0.0 0.0-0.1 10 3/uL Immature Granulocytes Abs Auto 0.02 0.00-0.03 10 3/uL Performing Lab: see note ML - [facility] LB TSH Reviewed date:01/20/2024 06:37:14 PM Interpretation: Performing Lab: Notes/Report: [facility] , Thyroid Stimulating Hormone 2.236 0.358-3.740 u IU/mL Performing Lab: see note ML - [facility] LB T4 Reviewed date:01/20/2024 06:37:14 PM Interpretation: Performing Lab: Notes/Report: [facility] , T4 Thyroxine 11.00 4.80-13.90 ug/dL Performing Lab: see note ML - [facility] LB LIPID PROFILE Reviewed date:01/20/2024 06:37:14 PM Interpretation: Performing Lab: Notes/Report: [facility] , Triglycerides 121 <=150 mg/dL Cholesterol 149 <=200 mg/dL HDL Cholesterol 44 40-60 mg/dL <40 mg/dl - HIGH CARDIOVASCULAR RISK > or =60 mg/dl - LOW CARDIOVASCULAR RISK LDL Cholesterol Calculated 80.8 160-189 mg/dl HIGH <100 mg/dl OPTIMAL >190 mg/dl VERY HIGH 130-159 mg/dl BORDERLINE HIGH 100-129 mg/dl NEAR OR ABOVE OPTIMAL VLDL CHOLESTEROL 24.2 Chol HDL Ratio 3.4 3.3 - 4.4 LOW RISK 7.1 - 11.0 MODERATE RISK 4.4 - 7.1 AVERAGE RISK >11.0 HIGH RISK Performing Lab: see note ML - [facility] LB GLYCOHEMOGLOBIN A1C Reviewed date:01/20/2024 06:37:14 PM Interpretation: Performing Lab: Notes/Report: [facility] , Glycohemoglobin A1C 4.5 4.5-6.2 % ACTION SUGGESTED ADA THERAPEUTIC TARGET < 7.0 ADA RECOMMENDED LIMIT 4.0 - 6.0 > 7.0 Estimated Average Glucose 82 Performing Lab: see note ML - [facility] LB FREE T3 Reviewed date:01/20/2024 06:37:14 PM Interpretation: Performing Lab: Notes/Report: [facility] , Free T3 2.59 2.18-3.98 pg/mL Performing Lab: see note ML - [facility] LB PROF 14(COMP METB) Reviewed date:01/20/2024 06:37:14 PM Interpretation: Performing Lab: Notes/Report: [facility] , Sodium 140 136-145 mmol/L Potassium 3.6 3.5-5.1 mmol/L Chloride 104 98-107 mmol/L Carbon Dioxide 28.2 21.0-32.0 mmol/L Anion Gap 11.4 Glucose 86 74-106 mg/dL Blood Urea Nitrogen 5.0 7.0-18.0 mg/dL Creatinine 0.59 0.55-1.02 mg/dL Estimated GFR ( Ute >60 >=60 Estimated GFR (Non- Eboni >60 >=60 BUN Creatinine Ratio 8.5 Calcium 9.0 8.5-10.1 mg/dL Bilirubin Total 1.1 0.2-1.0 mg/dL Aspartate Amino Transferase 11 15-37 U/L Alanine Aminotransferase 17 14-59 U/L Alkaline Phosphatase 55 46-116 U/L Total Protein 7.2 6.4-8.2 g/dL Albumin Level 4.1 3.4-5.0 g/dL Globulin 3.1 Albumin Globulin Ratio 1.3 Performing Lab: see note ML - [facility] LB Reason For Referral No Information Medications Medication SIG (Take, Route, Frequency, Duration) Notes Start Date End Date Status dilTIAZem HCl ER Coated Beads 120 MG 1 capsule Orally Once a day for 30 days 12/09/2024 Active Lactulose 20 GM/30ML 30 ml Orally bid fo r 30 days 12/09/2024 Active Ferrous Sulfate 325 (65 Fe) MG 1 tablet Orally twice daily for 30 days 12/10/2024 Active Social History Tobacco Use: Social History Observation Description Date Details (start date - stop date) Never Smoker NA - NA Tobacco Use/Smoking Question Answer Notes Patient is a nonsmoker Alcohol Screen (Audit-C) Question Answer Notes Did you have a drink contain ing alcohol in the past year? Yes How often did you have 6 or more drinks on one occasion in the past year? Never (0 point) How many drinks did you have on a typical day when you were drinking in the past year? 1 or 2 drinks (0 point) How often did you have a dri nk containing alcohol in the past year? Less than monthly (1 point) Points 1 Interpretation Negative AUDIT-C (Standard) Question Answer Notes Did you have a drink containing alcohol in the p ast year? No Points 0 Interpretation Negative Problems Problem Type SNOMED Code ICD Code Onset Dates Problem Status W/U Status Risk Notes Problem Constipation (45479924) Constipation (K59.00) Active confirmed Problem Well adult (611172616) Well adult (Z00.00) Active confirmed Problem Cellulitis (324874412) Cellulitis (L03.90) Active confirmed Problem Seasonal allergic reaction (J30.2) Active confirmed Vital Signs Heart Rate 93 /min 12/09/2024 Oximetry 99 % 12/09/2024 Blood pressure diastolic 80 mm Hg 12/09/2024 Height 63 in 12/09/2024 Blood pressure systolic 134 mm Hg 12/09/2024 Weight 147.8 lbs 12/09/2024 BMI 26.18 kg/m2 12/09/2024 Encounters Encounter Location Date Provider Diagnosis [facility] [address] [place] [address] 01/17/2024 Juaquin Huangy Well adult Z00.00 [facility] [address] [place] [address] 12/09/2024 Juaquin Huangy Well adult Z00.00 ; Constipation K59.00 and Seasonal allergic reaction J30.2 [facility] [address] [place] [address] 01/20/2024 Juaquin Huangy [facility] [address] [place] [address] 12/09/2024 Juaquin Portillo Assessments Encounter Date Diagnosis (ICD Code) Assessment Notes Treatment Notes Treatment Clinical Notes Section Notes 01/17/2024 Well adult (ICD-10 - Z00.00) 12/09/2024 Constipation (ICD-10 - K59.00) 12/09/2024 Well adult (ICD-10 - Z00.00) 12/09/2024 Seasonal allergic reaction (ICD-10 - J30.2) Plan Of Treatment Pending Test Test Name Order Date CMP (COMPLETE METABOLIC PANEL) 3 CMP (COMPLETE METABOLIC PANEL) 4 HEMOGLOBIN A1C (GLYCO) 01/17/2024 HEMOGLOBIN A1C (GLYCO) 12/09/2024 HEMOGLOBIN A1C (GLYCO) 01/29/2023 IRON, TOTAL 01/29/2023 IRON, TOTAL 12/09/2024 LIPID PANEL (CHOL/TRIG/HDL/LDL) 01/30/20 23 LIPID PANEL (CHOL/TRIG/HDL/LDL) 12/10/19 25 LIPID PANEL (CHOL/TRIG/HDL/LDL) 01/17/20 24 CBC WITH DIFF 01/17/2024 CBC WITH DIFF 01/29/2023 XR Mandible (4 views) * 04/24/2023 Insulin Level 12/09/2024 CULTURE BLOOD 11/04/2023 SED RATE WESTERGREN 11/04/2023 THYROID PANEL (T4/TSH/FREE T3) 3 THYROID PANEL (T4/TSH/FREE T3) 4 THYROID PANEL (T4/TSH/FREE T3) 5 MM screening mammo BI 12/09/2024 MM screening mammo BI 01/17/2024 CMP (COMP MET HOLLIS) w/eGFR CKD-EPI 2024 CBC WITH DIFF 12/09/2024 Insurance Providers Payer Name Payer Address Payer Phone Subscriber Number Group Number Insured Name Patient Relationship to Insured Coverage Start Date Coverage End Date [employer] PPO PLUS LOCAL PLAN [address] [place] [address] [id number] Radha Berrios Self - patient is the insured Medications Administered Medication Instructions Date of Administration Dosage Notes Ceftriaxone 1 gram 11/04/2023 1 g 1 gm Medical (General) History Medical History History ICD Code Anemia, iron deficiency D50.9 ADHD F90.9 Breakthrough bleeding N92.1 Acute eczema L30.9 Mass in neck R22.1 Myalgia M79.10 Acute pulmonary embolism I26.99 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
--- OUTSIDE RECORDS SUMMARY | 2024-12-15 10:57 | XMS_ITS | Encounter Summary ---
Author Organization [facility] Address [address] [place] [address] Care Team Providers Care Field Services Director Name Role Phone Judah Portillo MD Primary Care Provider [phone] Encounter Details Date Type Department Care Team (Late st Contact Info) Description 01/09/2023 Orders Only [facility] [address] [facility] [address] [place] [phone] Megan Robbins MA [address] [place] [address] Social History Tobacco Use Types Packs/Day Years Used Date Smoking Tobacco: Never Smokeless Tobacco: Never Alcohol Use Standard Drinks/Week Comments Not Currently 0 (1 standard drink = 0.6 oz pur e alcohol) PHQ-2 Answer Date Recorded Patient Health Questionnaire-2 Score 0 12/26/2022 Comments Unknown Sex and Gender Information Value Date Recorded Sex Assigned at Not on file Legal Sex Female 11:23 PM EDT Gender Identity Not on file Sexual Orientation Not on file documented as of this encounter Plan of Treatment Upcoming Encounters Date Type Department Care Team (Late st Contact Info) Description 02/03/2025 10:30 AM EDT Office Visit [facility] [address] [facility] [address] [place] [phone] Jay Wiseman MD [address] [facility] [address] [place] [address] documented as of this encounter Procedures Procedure Name Priority Date/Time Associated Diagnosis Comments PAP SMEAR Routine 12/26/2022 12:00 AM EDT documented in this encounter Results * Pap Smear (12/26/2022 12:00 AM EDT) Swab Cervical swab / Unknown us Historical Provider LAB CYTOLOGY ORDERABLES F inal Result [facility] documented in this encounter Visit Diagnoses Not on filedocumented in this encounter Care Teams Field Services Director Relationship Specialty Start Date End Date Judah Portillo MD PCP - General Family Medicine 12/26/22 documented as of this encounter
== END 2024-12-15 10:55 | disposition home or self-care (01) ==
LOC: MAMMO 10:54
PROVIDERS: PCP Family Medicine; Visit Provider Family Medicine
DX: Z12.31 Encounter for screening mammogram for malignant neoplasm of breast (principal); Z80.7 Family history of other malignant neoplasms of lymphoid, hematopoietic and related tissues
CPT/HCPCS: 77063; 77067

== ENCOUNTER 2025-01-07 10:24 | Outpatient (OUT) | payer BC, SELFPAY ==
--- OUTSIDE RECORDS SUMMARY | 2010-04-03 04:15 | XMS_ITS | Continuity of Care Document ---
Author Organization [facility] Address [address] [place] [address] Phone Care Team Providers Care Food And Beverage Lead Name Role Phone Marisa Morris CNP Unavailable Unavailabl e Procedures Procedure Date PREV VISIT, NEW, AGE 18-39 SPECIMEN HANDLING THIN PREP AND HPV OFFICE/OUTPATIENT VISIT, [facility] URINE TEST Advance Directives Directive Yes / No Effective Date File Name No Information Encounters Encounter Description Practice Location Reason(s) For Visit Diagnoses Date Provider Providers Copied on Encounter PREV VISIT, NEW, AGE 18-39 [facility], [address], [place], [id number], [place] tel:[phone] [facility] No Information Arturo Cunningham. [address], [place], [id number]. tel:[phone] OFFICE/OUTPAT IENT VISIT, EST [facility], [address], [place], [id number], [place] tel:[phone] [facility] No Information Visci DO Desmond. [address], [place], [id number], [place]. tel:[phone] Family History Family Member Type Diagnosis Age At Onset No Information Payers Payer name Insurance type Covered democrat ID Authoriza tion(s) No Information Social History [...]
--- OUTSIDE RECORDS SUMMARY | 2024-12-09 16:05 | XMS_ITS ---
Author Organization [facility] in [place] Address [address] [place] [address] Care Team Providers Care Feed Elevator Worker Name Role Phone Bandar Juaquin Primary Care Provider [phone] REASON FOR VISIT labs Medications Medication SIG (Take, Route, Frequency, Duration) Notes Start Date End Date Status Ferrous Sulfate 325 (65 Fe) MG 1 tablet Orally twice daily for 30 days 12/10/2024 Active Encounters Encounter Location Date Provider Diagnosis [facility] [address] [place] [address] 12/09/2024 Juaquin Portillo Plan Of Treatment Medication Medication Name Sig Start Date Stop Date Notes Ferrous Sulfate 325 (65 Fe) MG 1 tablet Orally twice daily for 30 days 12/10/2024 Progress Notes * Radha WHITMORE LDOB:[birth year] (38 yo F)Acc No.[id number]:12/09/2024 Patient: Radha GRACIA :1985 A ge:38 Y S ex:Female Address:[address] [place] [address] * Refills Start Ferrous Sulfate Tablet, 325 (65 Fe) MG, Orally, 60 Tablet, 1 tablet, twice daily, 30 days, Refills=11 * true * Date: Generated for Printi ng/Faxing/eTransmitting on: 0 01/07/2025 10:26 AM EDT
--- OUTSIDE RECORDS SUMMARY | 2024-12-15 12:07 | XMS_ITS ---
Author Organization [facility] [place] Address [address] [place] [address] Care Team Providers Care Warehouse General Laborer Name Role Phone Juaquin Portillo Primary Care Provider REASON FOR VISIT mammogram results Encounters Encounter Location Date Provider Diagnosis [facility] [address] [place] [address] 12/15/2024 Juaquin Portillo Plan Of Treatment No Information Progress Notes * Cierra WHITMOREaamirjustin LDOB:[birth year] (38 yo F)Acc No.[id number]:12/15/2024 Patient: Radha GRACIA :1985 A ge:38 Y S ex:Female Address:[address] [address] * true * Date: Generated for Gardenia song/Jessica/eTransmitting on: 0 01/07/2025 10:27 AM EDT
--- OUTSIDE RECORDS SUMMARY | 2025-01-06 09:45 | XMS_ITS | Encounter Summary ---
Author Organization [facility] Address [address] [place] [address] Care Team Providers Care Paper Gluing Operator Name Role Phone Judah Portillo MD Primary Care Provider [phone] Reason for Visit * Reason Comments Menstrual Problem Encounter Details Date Type Department Care Team (Latest Contact Info) Description 01/06/2025 9:45 AM EDT Office Visit JERO CAMPBELL [address] [facility] [address] [place] [phone] Jay Wiseman MD [address] [facility] [address] [place] [address] Hormone imbalance (Primary Dx); Menorrhagia with regular cycle; Dysmenorrhea; Acute vaginitis; Endometrial polyp; Right ovarian cyst; Iron deficiency anemia, unspecified iron deficiency anemia type; Encounter for gynecological examination without abnormal finding; Encounter for screening for cervical cancer Social History Tobacco Use Types Packs/Day Years [...] on file documented as of this encounter Last Filed Vital Signs Vital Sign Reading Time Taken Comments Blood Pressure 116/68 01/06/2025 9:36 AM EDT Pulse - - Temperature - - Respiratory Rate - - Oxygen Saturation - - Inhaled Oxygen Concentration - - Weight 67.1 kg (148 lb) 01/06/2025 9:36 AM EDT Height 160 cm (5' 3 ) 01/06/2025 9:36 AM EDT Body Mass Index 26.22 01/06/2025 9:36 AM EDT documented in this encounter Plan of Treatment Upcoming Encounters Date Type Department Care Team (Late st Contact Info) Description 01/21/2025 9:30 AM EDT Ancillary Procedure [facility] CLAYADRIAN[facility] [address] [place] [address] 01/21/2025 10:15 AM EDT Office Visit JERO Obriengiulia FRYN [address] [place] [address] Jay Wiseman MD [address] [place] [address] 02/02/2025 12:45 PM EDT Consult [facility] CLAYGYN [address] [place] [phone] Desmond Barron DO [address] [place] [address] 03/29/2025 10:00 AM EST Office Visit JERO Jean Baptistetia FRYN [address] [place] [address] Jay Wiseman MD [address] [place] [address] Pending Results Name Type Priority Associated Diagnoses Date /Time IGP, APT HPV,RFX 16/18,45 Lab Routine Encounter for gynecological examination without abnormal finding Encounter for screening for cervical cancer 01/06/2025 4:57 PM EDT Scheduled Orders Name Type Priority Associated Diagnoses Orde r Schedule PCOS Diagnostic Profile Lab Routine Hormone imbalance Expected: 01/06/2025 (Approximate), Expires: 01/06/2026 Progesterone Lab Routine Hormone imbalance Ordered: 01/06/2025 CBC Lab Routine Menorrhagia with regular cycle Iron deficiency anemia, unspecified iron deficiency anemia type Ordered: 01/06/2025 Iron and TIBC Lab Routine Menorrhagia with regular cycle Iron deficiency anemia, unspecified iron deficiency anemia type Ordered: 01/06/2025 Ferritin Lab Routine Menorrhagia with regular cycle Iron deficiency anemia, unspecified iron deficiency anemia type Ordered: 01/06/2025 documented as of this encounter Visit Diagnoses Diagnosis Hormone imbalance- Primary Menorrhagia with regular cycle Dysmenorrhea Acute vaginitis Unspecified vaginitis and vulvovaginitis Endometrial polyp Polyp of corpus uteri Right ovarian cyst Other and unspecified ovarian cyst Iron deficiency anemia, unspecified iron deficiency anemia type Encounter for gynecological examination without abnormal finding Encounter for screening for cervical cancer documented in this encounter Care Teams Paper Gluing Operator Relationship Specialty Start Date End Date Judah Portillo MD PCP - General Family Medicine 12/26/22 documented as of this encounter
--- OUTSIDE RECORDS SUMMARY | 2025-01-07 04:16 | XMS_ITS ---
Author Organization [facility] [place] Address [address] [place] [place] [address] Care Team Providers Care Animal Nutritionist Name Role Phone Juaquin Portillo Primary Care Provider [phone] REASON FOR VISIT iron question Problems Problem Type SNOMED Code ICD Code Onset Dates Problem Status W/U Status Risk Notes Problem Heavy menstrual bleeding (N92.0) Active confirmed Encounters Encounter Location Date Provider Diagnosis [facility] [address] [facility] [place] [address] 01/07/2025 Juaquin Portillo Heavy menstrual bleeding N92.0 and Fatigue R53.83 Assessments Encounter Date Diagnosis (ICD Code) Assessment Notes Treatment Notes Treatment Clinical Notes Section Notes 01/07/2025 Heavy menstrual bleeding (ICD-10 - N92.0) 01/07/2025 Fatigue (ICD-10 - R53.83) Plan Of Treatment Pending Test Test Name Order Date CBC AUTO DIFF 01/07/2025 FERRITIN 01/07/2025 IRON 01/07/2025 Progress Notes * Cierra WHITMOREaamirjustin LDOB:[birth year] (39 yo F)Acc No.[id number]:01/07/2025 Patient: Radha GRACIA :1985 A ge:39 Y S ex:Female Address:[address] [place], [place] [address] [address] Subjective: * Chief Complaints: * I mai question * Medical History: * Surgical History: * Hospitalization/Major Diagno stic Procedure: * Medications: Objective: * Vitals: * Physical Examination: Assessment: * Assessment: 1. H eavy menstrual bleeding - N92.0 (Primary) 2 . F atigue - R53.83 ? Plan: * Treatment: 2. F atigue L AB: CBC AUTO DIFF L AB: FERRITIN L AB: IRON * Procedure Codes: * true * Date: Generated for [place] song/Jessica/Lucinaitting on: 0 01/07/2025 10:26 AM EDT
--- OUTSIDE RECORDS SUMMARY | 2025-01-07 10:27 | XMS_ITS | Encounter Summary ---
Author Organization [facility] Address [address] [place] [address] Care Team Providers Care Food And Beverage Director Name Role Phone Judah Portillo MD Primary Care Provider [phone] Encounter Details Date Type Department Care Team (Late Contact Info) Description 07/17/2023 Orders Only [facility] CAMPBELL [address] [place] [phone] Jay Wiseman MD [address] [place] [address] Social History Tobacco Use Types Packs/Day Years [...] Encounters Date Type Department Care Team (Late Contact Info) Description 01/21/2025 9:30 AM EDT Ancillary Procedure [facility] [place] [facility] [address] [place] [address] 01/21/2025 10:15 AM EDT Office Visit JERO CAMPBELL [address] [place] [address] Jay Wiseman MD [address] [place] [address] 02/02/2025 12:45 PM EDT Consult [facility] CAMPBELL [address] [place] [address] Desmond Barron DO [address] [place] [address] 03/29/2025 10:00 AM EST Office Visit JERO CAMPBELL [address] [place] [address] Jay Wiseman MD [address] [place] [address] documented as of this encounter Procedures Procedure [...] on filedocumented in this encounter Care Teams Food And Beverage Director Relationship Specialty Start Date End Date Juadh Portillo MD PCP - General Family Medicine 12/26/22 documented as of this encounter
--- OUTSIDE RECORDS SUMMARY | 2025-01-07 10:27 | XMS_ITS | Encounter Summary ---
Author Organization [facility] Address [address] [place] [address] Care Team Providers Care Manager Ecommerce Name Role Phone Judah Portillo MD Primary Care Provider [phone] Encounter Details Date Type Department Care Team (Late st Contact Info) Description 01/04/2025 Telephone [facility] [place] CAMPBELL [address] [facility] [address] [place] [address] Jay Wiseman MD [address] [facility] [address] [place] [address] Social History Tobacco Use Types Packs/Day Years [...] on file documented as of this encounter Miscellaneous Notes * Telephone Encounter - Mayte Antony - 01/05/2025 2:54 PM EDT Scheduled patient for 01/06/25 at 9:45 am * Telephone Encounter - Vesta Santana LPN - 01/05/2025 9:46 AM EDT Spoke with pt , she reports she has been having heavy periods, for 1 week then off 1 had another heavy one. Pt reports she is concerned. Pt states she is using pads and has to change it often. ( Discussed heavy bleeding and advised if changing pad every hour consistently She states she passes largeclots when she is on it. Pt states she recently was seen by PCP who did routine blood work and found her to be anemic. So pt is on supplement now. Pt would like to schedule with PPJ to discuss options. Labs will be printed an uploaded to pt chart for review. * Telephone Encounter - Vesta Santana LPN - 01/04/2025 10:40 AM EDT 1st Attempt: Called patient left message for patient to return our call, to get her schd for an appointment. Patient can reach our office @ [phone] Saturday through 8:00 AM - 4:00 PM and Saturday 8:00 AM - 12:00 PM. * Telephone Encounter - Cammy Chavarria - 01/04/2025 9:12 AM EDT Hi, this is Radha Whitmore. My date of is [birth year]. And I was needing to make an appointment with Dr Wiseman. About my heavy periods and I am getting them every 2 weeks now, so call me back. Thank you. [phone] documented in this encounter Plan of Treatment Upcoming Encounters Date Type Department Care Team (Late st Contact Info) Description 01/21/2025 9:30 AM EDT Ancillary Procedure [facility] [place] FRYN [address] [place] [address] 01/21/2025 10:15 AM EDT Office Visit [facility] CAMPBELL [address] [place] [address] Jay Wiseman MD [address] [place] [address] 02/02/2025 12:45 PM EDT Consult NOMStevan CAMPBELL [address] [place] [address] Desmond Barron DO [address] [place] [address] 03/29/2025 10:00 AM EST Office Visit JERO CAMPBELL [address] [place] [address] Jay Wiseman MD [address] [place] [address] documented as of this encounter Visit Diagnoses Not on filedocumented in this encounter Care Teams Manager Ecommerce Relationship Specialty Start Date End Date Judah Portillo MD PCP - General Family Medicine 12/26/22 documented as of this encounter
--- OUTSIDE RECORDS SUMMARY | 2025-01-07 10:27 | XMS_ITS | Clinical Summary ---
Author Organization [facility] Address [address] [place] [address] Care Team Providers Care Treasury Assistant Name Role Phone Judah Portillo MD Primary Care Provider [phone] Allergies Active Allergy Reactions Criticality Noted Date [...] a day 30 g 2 4 Active meclofenamate (Meclomen) 100 MG capsuleIndicati ons:Menorrhagia with regular cycle 1 tablet orally tid while on menses 20 capsule 5 Active medroxyPROGESTE Jareth (Provera) 10 MG tabletIndicatio ns:Menorrhagia with regular cycle Take 1 tablet (10 mg) by mouth Daily Take 1 tablet by mouth daily for 7 days beginning on day 16 of the menstrual cycle. 14 tablet 3 5 01/07/20 26 Active Encounters Date Type Department Care Team Description 01/06/2025 9:45 AM EDT Office Visit [facility] [place] CAMPBELL [address] [place] [address] Jay Wiseman MD Hormone imbalance (Primary Dx); Menorrhagia with regular cycle; Dysmenorrhea; Acute vaginitis; Endometrial polyp; Right ovarian cyst; Iron deficiency anemia, unspecified iron deficiency anemia type; Encounter for gynecological examination without abnormal finding; Encounter for screening for cervical cancer 01/06/2025 Travel 01/04/2025 Telephone [facility] [place] CAMPBELL [address] [place] [address] Jay Wiseman MD from Last 3 Months Family History Medical History Relation Name Comments Bone cancer Father hysterectomy Maternal Grandmother Endometriosis Mother hysterectomy Sister Relation Name Status Comments Father Alive Maternal Grandmother Alive Mother Alive Sister Alive Social History Tobacco Use Types Packs/Day [...] Mass Index 26.22 01/06/2025 9:36 AM EDT Plan of Treatment Upcoming Encounters Date Type Department Care Team (Late st Contact Info) Description 01/21/2025 9:30 AM EDT Ancillary Procedure JERO CAMPBELL [address] [place] [address] 01/21/2025 10:15 AM EDT Office Visit JERO FRYN [address] [place] [address] Jay Wiseman MD [address] [place] [address] 02/02/2025 12:45 PM EDT Consult JERO CAMPBELL [address] [place] [address] Desmond Barron DO [address] [place] [address] 03/29/2025 10:00 AM EST Office Visit JERO CAMPBELL [address] [place] [address] Jay Wiseman MD [address] [place] [address] Insurance [facility] Care Teams Treasury Assistant Relationship Specialty Start Date End Date Judah Portillo MD PCP - General Family Medicine 12/26/22
--- OUTSIDE RECORDS SUMMARY | 2025-01-07 10:27 | XMS_ITS | Encounter Summary ---
Author Organization [facility] Address [address] [place] [address] Care Team Providers Care Nutrition Representative Name Role Phone Judah Portillo MD Primary Care Provider [phone] Encounter Details Date Type Department Care Team (Latest Contact Info) Description 01/06/2025 Travel Social History Tobacco Use Types Packs/Day Years [...] CAMPBELL [address] [place] [address] 01/21/2025 10:15 AM EDT Office Visit JERO CAMPBELL [address] [place] [address] Jay Wiseman MD [address] [place] [address] 02/02/2025 12:45 PM EDT Consult [facility]OM[facility] CAMPBELL [address] [place] [address] Desmond Barron DO [address] [place] [address] 03/29/2025 10:00 AM EST Office Visit JERO CAMPBELL [address] [place] [address] Jay Wiseman MD [address] [place] [address] documented as of this encounter Visit Diagnoses Not on filedocumented in this encounter Care Teams Nutrition Representative Relationship Specialty Start Date End Date Judah Portillo MD PCP - General Family Medicine 12/26/22 documented as of this encounter
--- OUTSIDE RECORDS SUMMARY | 2025-01-07 10:27 | XMS_ITS | Patient Health Record ---
Author Organization [facility] [place] Address [address] [place] [address] Care Team Providers Care Interventionist Name Role Phone Juaquin Fernández Primary Care Provider [phone] Allergies Allergen (clinical drug ingredient) Drug/Non Drug Allergy documented on EMR Reaction Allergy Type Onset Date Status Effexor body tingling Drug Allergy Act erin amoxicillin Amoxicillin hives Drug Allergy Act erin gentamicin Gentamicin rash Drug Allergy Activ e ciprofloxacin Ciprofloxacin chest pain Drug Allergy Active Results Component Value Reference Range Notes FREE T3 Reviewed date:12/09/2024 08:06:08 PM Interpretation: Performing Lab: Notes/Report: [facility] Free T3 2.76 2.18-3.98 pg/mL Performing Lab: see note ML - [facility] LB GLYCOHEMOGLOBIN A1C Reviewed date:12/09/2024 08:06:08 PM Interpretation: Performing Lab: Notes/Report: [facility] , Glycohemoglobin A1C 4.5 4.5-6.2 % ADA THERAPEUTIC TARGET < 7.0 ADA RECOMMENDED LIMIT 4.0 - 6.0 > 7.0 ACTION SUGGESTED Estimated Average Glucose 82 Performing Lab: see note ML - [facility] LB IRON Reviewed date:12/09/2024 08:06:08 PM Interpretation: Performing Lab: Notes/Report: [facility] , Iron 18.0 50.0-170.0 ug/dL Performing Lab: see note ML - [facility] LB LIPID PROFILE Reviewed date:12/09/2024 08:06:08 PM Interpretation: Performing Lab: Notes/Report: [facility] , Triglycerides 70 <=150 mg/dL Cholesterol [...] RISK Performing Lab: see note ML - [facility] PROF 14(COMP METB) Reviewed date:12/09/2024 08:06:08 PM Interpretation: Performing Lab: Notes/Report: [facility] , Sodium 141 136-145 mmol/L Potassium [...] Performing Lab: see note ML - [facility] LB T4 Reviewed date:12/09/2024 08:06:08 PM Interpretation: Performing Lab: Notes/Report: [facility] , T4 Thyroxine 10.20 4.80-13.90 ug/dL Performing Lab: see note ML - [facility] LB TSH Reviewed date:12/09/2024 08:06:08 PM Interpretation: Performing Lab: Notes/Report: [facility] , Thyroid Stimulating Hormone 3.001 0.358-3.740 uIU/mL Performing Lab: see note ML - [facility] LB MM tomosynthesis screening B I Reviewed date:12/15/2024 04:08:19 PM Interpretation: Performing Lab: Notes/Report: Source Facility: [facility]-[address] [place] [address] [place] [address] Mammography Report Signed Patient: RADHA WHITMORE MR#: [id number] : 1985 Acct:[id number] Age/Sex: 38 / F ADM Date: 12/15/24 Loc: MAMMO Attending Dr: Judah Fernández M.D. Ordering Physician: Judah Fernández M.D. Results: Date of Service: 12/15/24 Follow Up: Procedure(s): MM tomosynthesis screening BI Accession Number(s): [id number] cc: Judah Fernández M.D. Patient Name: RADHA WHITMORE MR#: [id number] : 1985 Exam Date: 12/15/2024 Ordering Doctor: DR JUDAH FERNÁNDEZ . RADIOLOGY REPORT PROCEDURE: MM TOMOSYNTHESIS SCREENING BI COMPARISON: None. INDICATIONS: Screening Calculator Name NCI Breast Cancer Risk Assessment Tool 5 Year Breast Cancer Risk 0.40% Lifetime Breast Cancer Risk 10.00% Personal Breast Cancer No Personal Ovarian Cancer No Treatments None Family Cancers Father with lymphoma cancer at age 28. LOCATION: [facility] BREAST COMPOSITION: The breasts are heterogeneously dense, which may obscure small masses. FINDINGS: DIAGNOSTIC CATEGORY 1--NEGATIVE. RIGHT BREAST: No significant suspicious finding. LEFT BREAST: No significant suspicious finding. RECOMMENDATIONS: ROUTINE MAMMOGRAM AND CLINICAL EVALUATION IN 12 MONTHS. PLEASE NOTE: A NORMAL MAMMOGRAM DOES NOT EXCLUDE THE POSSIBILITY OF BREAST CANCER. A CLINICALLY SUSPICIOUS PALPABLE LUMP SHOULD BE BIOPSIED. Dictated by: Ousmane Camacho DO on 12/15/2024 at 15:58 Approved by: Ousmane Camacho DO on 12/15/2024 at 16:01 Dictated By: Ousmane Camacho M.D. Signed By: 12/15/241601 DD/ 00 TD/TT: Junior Accountant Bookkeeper: [place] [address] Mammography Report Signed Patient: LALO WHITMORE MR#: [id number] : 1985 Acct:[id number] Age/Sex: 38 / F ADM Date: 12/15/24 Loc: MAMMO Attending Dr: Gt Fernández M.D. Ordering Physician: Judah Fernández M.D. Results: Date of Service: 12/15/24 Follow Up: Procedure(s): MM tomosynthesis screening BI Accession Number(s): [id number] cc: Judah Fernández M.D. Patient Name: RADHA WHITMORE MR#: [id number] : 1985 Exam Date: 12/15/2024 Ordering Doctor: DR JUDAH FERNÁNDEZ . RADIOLOGY REPORT PROCEDURE: MM TOMOSYNTHESIS SCREENING BI COMPARISON: None. INDICATIONS: Screening Calculator Name NCI Breast Cancer Risk Assessment Tool 5 Year Breast Cancer Risk 0.40% Lifetime Breast Canc er Risk 10.00% Personal Breast Canc er No Personal Ovarian Can cer No Treatments None Family Cancers Fathe r with lymphoma cancer at age 28. LOCATION: [facility] BREAST COMPOSITION: The breasts are heterogeneously dense, which may obscure small masses. FINDINGS: DIAGNOSTIC CATEGORY 1--NEGATIVE. RIGHT BREAST: No significant suspicious finding. LEFT BREAST: No significant suspicious finding. RECOMMENDATIONS: ROUTINE MAMMOGRAM AN D CLINICAL EVALUATION IN 12 MONTHS. PLEASE NOTE: A JASWINDER L MAMMOGRAM DOES NOT EXCLUDE THE POSSIBILITY OF BREAST CANCER. A CLINICALLY SUSPICIOUS PALPABLE LUMP SHOULD BE BIOPSIED. Dictated by: Ousmane Camacho DO on 12/15/2024 at 15:58 Approved by: Ousmane Camacho DO on 12/15/2024 at 16:01 Dictated By: Ousmane Camacho M.D. Signed By: 12/15/241601 DD/ 00 TD/TT: Junior Accountant Bookkeeper: INSULIN Reviewed date:12/10/2024 06:05:50 PM Interpretation: Performing Lab: Notes/Report: [facility] , Insulin 4.9 2.6-24.9 uIU/mL Dough Catcher: Abhijeet Tejeda PhD, Phone: [phone] [address] [place], [place] [phone] [facility]formed at: [facility] Performing Lab: see note - [facility] LB CBC AUTO DIFF Reviewed date:12/09/2024 08:06:08 PM Interpretation: Performing Lab: Notes/Report: [facility] , White Blood Count 7.5 4.0-11.0 [...] 0.00-0.03 10 3/uL Performing Lab: see note - [facility] LB TSH Reviewed date:01/20/2024 06:37:14 PM Interpretation: Performing Lab: Notes/Report: [facility] , Thyroid Stimulating Hormone 2.236 0.358-3.740 uIU/mL Performing Lab: see note - [facility] LB T4 Reviewed date:01/20/2024 06:37:14 PM Interpretation: Performing Lab: Notes/Report: [facility] , T4 Thyroxine 11.00 4.80-13.90 ug/dL Performing Lab: see note - [facility] LB PROF 14(COMP METB) Reviewed date:01/20/2024 06:37:14 PM Interpretation: Performing Lab: Notes/Report: [facility] , Sodium 140 136-145 mmol/L Potassium [...] Performing Lab: see note ML - [facility] LB LIPID PROFILE Reviewed date:01/20/2024 06:37:14 PM Interpretation: Performing Lab: Notes/Report: [facility] , Triglycerides 121 <=150 mg/dL Cholesterol [...] Performing Lab: see note ML - [facility] LB GLYCOHEMOGLOBIN A1C Reviewed date:01/20/2024 06:37:14 PM Interpretation: Performing Lab: Notes/Report: [facility] , Glycohemoglobin A1C 4.5 4.5-6.2 % ACTION SUGGESTED ADA THERAPEUTIC TARGET < 7.0 ADA RECOMMENDED LIMIT 4.0 - 6.0 > 7.0 Estimated Average Glucose 82 Performing Lab: see note ML - [facility] LB FREE T3 Reviewed date:01/20/2024 06:37:14 PM Interpretation: Performing Lab: Notes/Report: [facility] , Free T3 2.59 2.18-3.98 pg/mL Performing Lab: see note ML - [facility] LB CBC AUTO DIFF Reviewed date:01/20/2024 06:37:14 PM Interpretation: Performing Lab: Notes/Report: [facility] , White Blood Count 8.4 4.0-11.0 [...] Performing Lab: see note ML - [facility] LB Reason For Referral No Information [...] Status W/U Status Risk Notes Problem Constipation (36013159) Constipation (K59.00) Active confirmed Problem Well adult (314721530) Well adult (Z00.00) Active confirmed Problem Cellulitis (238533698) Cellulitis (L03.90) Active confirmed Problem Seasonal allergic rhinitis (867016096) Seasonal allergic reaction (J30.2) Active confirmed Problem Heavy menstrual bleeding (839043859) Heavy menstrual bleeding (N92.0) Active confirmed Vital Signs Heart Rate 93 /min 12/09/2024 Oximetry 99 % 12/09/2024 Blood pressure diastolic 80 mm Hg 12/09/2024 Height 63 in 12/09/2024 Blood pressure systolic 134 mm Hg 12/09/2024 Weight 147.8 lbs 12/09/2024 BMI 26.18 kg/m2 12/09/2024 Encounters Encounter Location Date Provider Diagnosis [facility] [address] [place] [address] 01/17/2024 Juaquin Fernández Well adult Z00.00 [facility] [address] [place] [address] 12/09/2024 Juaquin Fernández Well adult Z00.00 ; Constipation K59.00 and Seasonal allergic reaction J30.2 [facility] [address] [place] [address] 01/20/2024 Juaquin Fernández [facility] [address] [place] [address] 12/09/2024 Juaquin Fernández [facility] [address] [place] [address] 12/15/2024 Juaquin Fernández [facility] [address] [place] [address] 01/07/2025 Juaquin Fernández Heavy menstrual ble eding N92.0 and Fatigue R53.83 Assessments Encounter Date Diagnosis (ICD Code) Assessment Notes Treatment Notes Treatment Clinical Notes Section Notes 01/17/2024 Well adult (ICD-10 - Z00.00) 12/09/2024 Well adult (ICD-10 - Z00.00) 12/09/2024 Constipation (ICD-10 - K59.00) 01/07/2025 Heavy menstrual bleeding (ICD-10 - N92.0) 01/07/2025 Fatigue (ICD-10 - R53.83) 12/09/2024 Seasonal allergic reaction (ICD-10 - J30.2) [...] (4 views) * 04/24/2023 Insulin Level 12/09/2024 CBC AUTO DIFF 01/07/2025 CULTURE BLOOD 11/04/2023 FERRITIN 01/07/2025 IRON 01/07/2025 SED RATE WESTERGREN 11/04/2023 THYROID PANEL (T4/TSH/FREE [...] ACCESS PPO PLUS LOCAL PLAN [address] [place] [address] [id number] [address] [place] [address] Radha Berrios Self - patient is the [...]
--- OUTSIDE RECORDS SUMMARY | 2025-01-07 10:27 | XMS_ITS | Encounter Summary ---
Author Organization [facility] Address [address] [place] [address] Care Team Providers Care Membership Advisor Name Role Phone Judah Portillo MD Primary Care Provider [phone] Encounter Details Date Type Department Care Team (Late st Contact Info) Description 03/13/2023 Abstract [facility] [place] [facility] [address] [facility] [address] [place] [phone] Jay Wiseman MD [address] [facility] [address] [place] [address] Social History Tobacco Use Types Packs/Day Years [...] 01/21/2025 9:30 AM EDT Ancillary Procedure [facility] [place] [facility] [address] [place] [phone] 01/21/2025 10:15 AM EDT Office Visit [facility] [address] [place] [phone] Jay Wiseman MD [address] [place] [address] 02/02/2025 12:45 PM EDT Consult [facility] [address] [place] [phone] Desmond Barron DO [address] [place] [address] 03/29/2025 10:00 AM EST Office Visit [facility] [address] [place] [phone] Jay Wiseman MD [address] [place] [address] documented as of this encounter Visit Diagnoses Not on filedocumented in this encounter Care Teams Membership Advisor Relationship Specialty Start Date End Date Judah Portillo MD PCP - General Family Medicine 12/26/22 documented as of this encounter
--- OUTSIDE RECORDS SUMMARY | 2025-01-07 10:27 | XMS_ITS | Clinical Summary ---
Author Organization [facility] Address [address] [place] [id number] Care Team Providers Care Brick Tender Name Role Phone Judah Portillo MD Primary Care Provider [phone] Allergies Active Allergy Reactions Criticality Noted Date [...] 3-dose series) 12/30 Cervical Cancer Screening 12/31/2007 HPV Vaccine (1 - 3-dose SCDM series) 2013 Influenza Vaccine (#1) 2025 Insurance Care Teams Brick Tender Relationship Specialty Start Date End Date Judah Portillo MD PCP - General Family Medicine 03/13/13
--- OUTSIDE RECORDS SUMMARY | 2025-01-07 10:27 | XMS_ITS | Encounter Summary ---
Author Organization [facility] Address [address] [place] [address] Care Team Providers Care Workday Consultant Name Role Phone Judah Portillo MD Primary Care Provider [phone] Encounter Details Date Type Department Care Team (Late st Contact Info) Description 01/09/2023 Orders Only [facility] [address] [place] [address] Megan Robbins MA [address] [place] [address] Social History Tobacco Use Types Packs/Day Years [...] [facility] [address] [place] [address] 01/21/2025 10:15 AM EDT Office Visit [facility] [place] [facility] [address] [place] [address] Jay Wiseman MD [address] [place] [address] 02/02/2025 12:45 PM EDT Consult [facility] [address] [place] [address] Desmond Barron DO [address] [place] [address] 03/29/2025 10:00 AM EST Office Visit [facility] [address] [place] [address] Jay Wiseman MD [address] [place] [address] documented as of this encounter Procedures Procedure Name Priority Date/Time Associated Diagnosis Comments PAP SMEAR Routine 12/26/2022 12:00 AM EDT documented in this encounter Results * Pap Smear (12/26/2022 12:00 AM EDT) Swab Cervical swab / Unknown us Historical Provider LAB CYTOLOGY ORDERABLES F inal Result [facility] documented in this encounter Visit Diagnoses Not on filedocumented in this encounter Care Teams Workday Consultant Relationship Specialty Start Date End Date Judah Portillo MD PCP - General Family Medicine 12/26/22 documented as of this encounter
--- OUTSIDE RECORDS SUMMARY | 2025-01-07 10:29 | XMS_ITS | CCD ---
Author Organization [facility] Care Team Providers Care Haz Tech Name Role Phone DR MUNIR PORTILLO Primary [...] Unavailable Munir Portillo MD Primary Care Provider [phone] Angella Saldivar MD Attending Provider [phone] Angella Saldivar Attending Unavailable Angella Saldivar Admitting Unavailable Allergies Allergy Classification Reported Allergen(s) Allergy Type Date of Onset Reaction(s) Facility (2 sources) Gentamicin Sulfate (HALFWAY) Drug Allergy [facility] (2 sources) Penicillins Drug allergy (disorder) 10-07-2012 [facility] (4 sources) Gentamicin Drug Allergy 11-16-2013 [facility] (4 sources) Penicillins Drug Allergy 03-13-2013 [facility] Medications Current Medications Medication Drug Class(es) Dates [...] the morning. 12/18/2022 Active polyethylene glycol 3350 81297 mg powder for oral solution (4 sources) [...] 2 identified in Unspecified specimen by Culture [facility] Fungus # 3 identified in Uns pecified specimen by CultureOrdered By: Angella Saldivar on 05-28-2024 Fungus identified # 3 Cx Nom (Unsp spec) Fungus # 3 identified in Unspecified specimen by Culture [facility] Fungus # 4 identified in Uns pecified specimen by CultureOrdered By: Angella Salidvar on 05-28-2024 Fungus identified # 4 Cx Nom (Unsp spec) Fungus # 4 identified in Unspecified specimen by Culture [facility] Fungus (Mycology) Cultureon 05-28-2024 Fungus (Mycology) Culture RIGHT UPPER ARM Preliminary report Final report RIGHT UPPER ARM Comment Trichophyton species Performed at: [address] [id number] Jowl Trimmer: Abhijeet Tejeda PhD, Phone: [phone] PERFORMED BY: [place] [address] PATHOLOGIST SASH CLAMP OPERATOR ALBERT REILLY M.D. Normal [facility] Comment on above: Performed By: #### C USUP #### [place] [address] [place] #### MYC CULT #### [facility] , No Panel InformationOrdered By: Angella Saldivar on 05-28-2024 Mycology Susceptibility N/A F [facility] Superficial Wound Cultureon 05-28-2024 Superficial Wound Culture RIGHT UPPER ARM Light Normal Skin Viri 2 Days PERFORMED BY: [place] [address] PATHOLOGIST SASH CLAMP OPERATOR ALBERT REILLY M.D. Normal [facility] Comment on above: Performed By: #### C USUP #### [place] [address] [place] #### MYC CULT #### [facility] , [...] DANYEL+probe Ql (Vag fld) Positive Abnormal Negative [facility] Comment on above: Published data demon strate that up to 65% of Nuzhat glabrata identified in cases of vaginal candidiasis have decreased susceptibility to fluconazole. C. trachomatis DNA DANYEL+probe Ql (Unsp spec) Negative Negative [facility] Megasphaera sp type 1 DNA DANYEL+probe Ql (Vag fld) Low - 0 Score [facility] Comment on above: Calculate total [...] DNA DANYEL+probe Ql (Vag fld) Negative Negative [facility] T. vaginalis DNA DANYEL+probe Ql (Vag fld) Negative Negative [facility] No Panel Informationon 01-25 Interpretation and review of laboratory results Abnormal [facility] Test(s) 075775- Atopobium vaginae; 179383- BVAB 2; 771452- Megasphaera 1 was developed and its performance characteristics determined [facility] It has not been cleared or approved by the Food and Drug Administration. Test(s) 670744-Hktaxdj albicans, DANYEL; 744513-Jlgrqni glabrata, DANYEL was developed and its performance characteristics determined by [employer]. It has not been cleared or approved by the Food and Drug Administration. Performed at: 01 - [address] [id number] Jowl Trimmer: Dena aMki MD, Phone: [phone] [facility] VIT D 1 25 DIHYDROXYon 11-12 Calcitriol(1,25 di-OH Vit D) 41.6 pg/mL Normal 24.8-81.5 [facility] Comment on above: Result Comment: Pl ease note reference interval change Performed By: #### V [id number] #### [facility] [address] [place] [address] Dr. Jemma Covarrubias INSULINon 11-11-2021 Insulin 4.7 uIU/mL Normal 2.6-24.9 [facility] Comment on above: Performed By: #### I NSULIN #### [facility] [address] [place] [address] Dr. Jemma Covarrubias CBC AUTO DIFFon 11-10-2021 BASO # 0.0 103/ul Normal 0.0-0.1 [facility] Comment on above: Performed By: #### C BC #### [facility] [address] [place] [address] Dr. Jemma Covarrubias Basophils/100 WBC (Bld) 0.6 % Normal 0.2-2.0 [facility] Comment on above: Performed By: #### C BC #### [facility] [address] [place] [address] Dr. Jemma Covarrubias EO # 0.1 103/ul Normal 0.0-0.7 [facility] Comment on above: Performed By: #### C BC #### [facility] [address] [place] [address] Dr. Jemma Covarrubias Eosinophils/100 WBC (Bld) 0.7 % Critically low 0.9-7.0 [facility] Comment on above: Performed By: #### C BC #### [facility] [address] [place] [address] Dr. Jemma Covarrubias Erythrocyte distribution width (RBC) [Ratio] 13.4 % Normal 11.0-15.0 [facility] Comment on above: Performed By: #### C BC #### [facility] [address] [place] [address] Dr. Jemma Covarrubias Hematocrit (Bld) [Volume fraction] 34.4 % Critically low 36.0-48.0 [facility] Comment on above: Performed By: #### C BC #### [facility] [address] [place] [address] Dr. Jemma Covarrubias Hemoglobin (Bld) [Mass/Vol] 10.9 g/dL Critically low 12.0-16.0 [facility] Comment on above: Performed By: #### C BC #### [facility] [address] [place] [address] Dr. Jemma Covarrubias IG # 0.02 10e3/ul Normal 0.00-0.03 [facility] Comment on above: Performed By: #### C BC #### [facility] [address] [place] [address] Dr. Jemma Covarrubias IG % 0.3 % Normal 0.0-0.5 [facility] Comment on above: Performed By: #### C BC #### [facility] [address] [place] [address] Dr. Jemma Covarrubias LYMPH # 1.7 103/ul Normal 1.2-3.8 [facility] Comment on above: Performed By: #### C BC #### [facility] [address] [place] [address] Dr. Jemma Covarrubias Lymphocytes/100 WBC (Bld) 25.6 % Normal 20.5-60.0 [facility] Comment on above: Performed By: #### C BC #### [facility] [address] [place] [address] Dr. Jemma Covarrubias MANUAL DIFF REQ NO Normal [facility] Comment on above: Performed By: #### C BC #### [facility] [address] [place] [address] Dr. Jemma Covarrubias MCH (RBC) [Entitic mass] 24.7 pg Critically low 26.7-34.0 [facility] Comment on above: Performed By: #### C BC #### [facility] [address] [place] [address] Dr. Jemma Covarrubias MCHC (RBC) [Mass/Vol] 31.7 g/dL Normal 29.9-35.2 [facility] Comment on above: Performed By: #### C BC #### [facility] [address] [place] [address] Dr. Jemma Covarrubias MCV (RBC) [Entitic vol] 78.0 fL Critically low 81.0-99. 0 [facility] Comment on above: Performed By: #### C BC #### [facility] [address] [place] [address] Dr. Jemma Covarrubias MONO # 0.3 103/ul Normal 0.3-0.8 [facility] Comment on above: Performed By: #### C BC #### [facility] [address] [place] [address] Dr. Jemma Covarrubias Monocytes/100 WBC (Bld) 4.5 % Normal 1.7-12.0 [facility] Comment on above: Performed By: #### C BC #### [facility] [address] [place] [address] Dr. Jemma Covarrubias NEUT # 4.6 103/ul Normal 1.4-6.5 [facility] Comment on above: Performed By: #### C BC #### [facility] [address] [address] [address] Jemma Covarrubias Neutrophils/100 WBC (Bld) 68.3 % Normal 43.0-75.0 [facility] Comment on above: Performed By: #### C BC #### [facility] [address] [place] [address] Dr. Jemma Covarrubias Platelet mean volume (Bld) [Entitic vol] 10.2 fL Normal 9.5-13.5 [facility] Comment on above: Performed By: #### C BC #### [facility] [address] [place] [address] Dr. Jemma Covarrubias PLT 299 103/ul Normal 150-450 [facility] Comment on above: Performed By: #### C BC #### [facility] [address] [place] [address] Dr. Jemma Covarrubias RBC 4.41 106/ul Normal 4.20-5.40 [facility] Comment on above: Performed By: #### C BC #### [facility] [address] [place] [address] Dr. Jemma Covarrubias WBC 6.7 103/ul Normal 4.0-11.0 [facility] Comment on above: Performed By: #### C BC #### [facility] [address] [place] [address] Dr. Jemma Covarrubias FREE THYROXINE INDEX T7on FTI 2.64 Normal 1.30-4.50 [facility] Comment on above: Performed By: #### T SH, T7, LIPID, CMP #### [facility] [address] [place] [address] Dr. Jemma Covarrubias T3U 31.0 % Normal 30.0-39.0 [facility] Comment on above: Performed By: #### T SH, T7, LIPID, CMP #### [facility] [address] [place] [address] Dr. Jemma Covarrubias T4 [Mass/Vol] 8.50 ug/dL Normal 4.80-13.90 [facility] Comment on above: Performed By: #### T SH, T7, LIPID, CMP #### [facility] [address] [address] [address] Jemma Covarrubias GLYCOHEMOGLOBIN A1Con 2021 ADA RECOMMENDATION SEE BELOW Normal [facility] Comment on above: Result Comment: ADA RECOMMENDED LIMIT 4.0 - 6.0 ADA THERAPEUTIC TARGET < 7.0 ACTION SUGGESTED > 7.0 Performed By: #### A 1C #### [facility] [address] [address] [address] Jemma Covarrubias Glucose [Mass/Vol] 103 mg/dL Normal [facility] Comment on above: Performed By: #### A 1C #### [facility] [address] [place] [address] Dr. Jemma Covarrubias HbA1c (Bld) [Mass fraction] 5.2 % Normal 4.5-6.2 [facility] Comment on above: Performed By: #### A 1C #### [facility] [address] [place] [address] Dr. Jemma Covarrubias IRONon 11-10-2021 Iron [Mass/Vol] 28.0 ug/dL Critically low 50.0-170.0 [facility] Comment on above: Performed By: #### I LUZ MARIA #### [facility] [address] [place] [address] Dr. Jemma Covarrubias LIPID PROFILEon 11-10-2021 CHOL-HDL RATIO NORM SEE BELOW Normal [facility] Comment on above: Result Comment: 3.3 - 4.4 LOW RISK 4.4 - 7.1 AVERAGE RISK 7.1 - 11.0 MODERATE RISK >11.0 HIGH RISK Performed By: #### T SH, T7, LIPID, CMP #### [facility] [address] [place] [address] Dr. Jemma Covarrubias Cholesterol [Mass/Vol] 189 mg/dL Normal <=200 [facility] Comment on above: Performed By: #### T SH, T7, LIPID, CMP #### [facility] [address] [place] [address] Dr. Jemma Covarrubias Cholesterol in HDL [Mass/Vol] 53 mg/dL Normal 40-60 [facility] Comment on above: Performed By: #### T SH, T7, LIPID, CMP #### [facility] [address] [address] [address] Jemma Covarrubias Cholesterol in LDL [Mass/Vol] 130.8 mg/dL Normal [facility] Comment on above: Performed By: #### T SH, T7, LIPID, CMP #### [facility] [address] [address] [address] Jemma Covarrubias Cholesterol.total/Jasmin sterol in HDL [Mass ratio] 3.6 {ratio} Normal [facility] Comment on above: Performed By: #### T SH, T7, LIPID, CMP #### [facility] [address] [address] [address] Jemma Covarrubias HDL NORMAL > or = 60 mg/dl - LOW CARDIOVASCULAR RISK <40 mg/dl - HIGH CARDIOVASCULAR RISK Normal [facility] Comment on above: Performed By: #### T SH, T7, LIPID, CMP #### [facility] [address] [address] [address] Jemma Covarrubias LDL CALC NORMAL SEE BELOW Normal [facility] Comment on above: Result Comment: <100 mg/dl OPTIMAL 100 - 129 mg/dl NEAR OR ABOVE OPTIMAL 130 - 159 mg/dl BORDERLINE HIGH 160 - 189 mg/dl HIGH >190 mg/dl VERY HIGH Performed By: #### T SH, T7, LIPID, CMP #### [facility] [address] [address] [address] Jemma Covarrubias Triglyceride [Mass/Vol] 26 mg/dL Normal <=150 [facility] Comment on above: Performed By: #### T SH, T7, LIPID, CMP #### [facility] [address] [place] [address] Dr. Jemma Covarrubias VLDL CALC 5.2 mg/dL Normal [facility] Comment on above: Performed By: #### T SH, T7, LIPID, CMP #### [facility] [address] [place] [address] Dr. Jemma Covarrubias PROF 14(COMP METB)on 022 Albumin [Mass/Vol] 4.0 g/dL Normal 3.4-5.0 [facility] Comment on above: Performed By: #### T SH, T7, LIPID, CMP #### [facility] [address] [address] [address] Jemma Covarrubias Albumin/Globulin [Mass ratio] 1.1 {ratio} Normal [facility] Comment on above: Performed By: #### T SH, T7, LIPID, CMP #### [facility] [address] [address] [address] Jemma Covarrubias ALP [Catalytic activity/Vol] 55 U/L Normal 46-116 [facility] Comment on above: Performed By: #### T SH, T7, LIPID, CMP #### [facility] [address] [address] [address] Jemma Covarrubias ALT [Catalytic activity/Vol] 21 U/L Normal 14-59 [facility] Comment on above: Performed By: #### T SH, T7, LIPID, CMP #### [facility] [address] [place] [address] Dr. Jemma Covarrubias Anion gap [Moles/Vol] 15.6 mmol/L Normal [facility] Comment on above: Performed By: #### T SH, T7, LIPID, CMP #### [facility] [address] [place] [address] Dr. Jemma Covarrubias AST [Catalytic activity/Vol] 11 U/L Critically low 15-37 [facility] Comment on above: Performed By: #### T SH, T7, LIPID, CMP #### [facility] [address] [address] [address] Jemma Covarrubias Bilirubin [Mass/Vol] 0.6 mg/dL Normal 0.2-1.0 [facility] Comment on above: Performed By: #### T SH, T7, LIPID, CMP #### [facility] [address] [address] [address] Jemma Covarrubias Calcium [Mass/Vol] 8.9 mg/dL Normal 8.5-10.1 [facility] Comment on above: Performed By: #### T SH, T7, LIPID, CMP #### [facility] [address] [address] [address] Jemma Covarrubias Chloride [Moles/Vol] 104 mmol/L Normal 98-107 [facility] Comment on above: Performed By: #### T SH, T7, LIPID, CMP #### [facility] [address] [place] [address] Dr. Jemma Covarrubias CO2 [Moles/Vol] 26.2 mmol/L Normal 21.0-32.0 [facility] Comment on above: Performed By: #### T SH, T7, LIPID, CMP #### [facility] [address] [place] [address] Dr. Jemma Covarrubias Creatinine [Mass/Vol] 0.61 mg/dL Normal 0.55-1.02 [facility] Comment on above: Performed By: #### T SH, T7, LIPID, CMP #### [facility] [address] [place] [address] Dr. Jemma Covarrubias EGFR-AF MONTSERRATIAN >=60 Normal >=60 [facility] Comment on above: Performed By: #### T SH, T7, LIPID, CMP #### [facility] [address] [place] [address] Dr. Jemma Covarrubias EGFR-NON AF MONTSERRATIAN >=60 Normal >=60 [facility] Comment on above: Performed By: #### T SH, T7, LIPID, CMP #### [facility] [address] [place] [address] Dr. Jemma Covarrubias Globulin (S) [Mass/Vol] 3.7 g/dL Normal [facility] Comment on above: Performed By: #### T SH, T7, LIPID, CMP #### [facility] [address] [place] [address] Dr. Jemma Covarrubias Glucose [Mass/Vol] 92 mg/dL Normal 74-106 [facility] Comment on above: Performed By: #### T SH, T7, LIPID, CMP #### [facility] [address] [place] [address] Dr. Jemma Covarrubias Potassium [Moles/Vol] 3.8 mmol/L Normal 3.5-5.1 [facility] Comment on above: Performed By: #### T SH, T7, LIPID, CMP #### [facility] [address] [address] [address] Jemma Covarrubias Protein [Mass/Vol] 7.7 g/dL Normal 6.4-8.2 [facility] Comment on above: Performed By: #### T SH, T7, LIPID, CMP #### [facility] [address] [address] [address] Jemma Covarrubias Sodium [Moles/Vol] 142 mmol/L Normal 136-145 [facility] Comment on above: Performed By: #### T SH, T7, LIPID, CMP #### [facility] [address] [address] [address] Jemma Covarrubias Urea nitrogen [Mass/Vol] 10.0 mg/dL Normal 7.0-18.0 [facility] Comment on above: Performed By: #### T SH, T7, LIPID, CMP #### [facility] [address] [place] [address] Dr. Jemma Covarrubias Urea nitrogen/Creatinine [Mass ratio] 16.4 mg/mg Normal [facility] Comment on above: Performed By: #### T SH, T7, LIPID, CMP #### [facility] [address] [address] [address] Jemma Covarrubias TSHon 11-10-2021 TSH 1.411 uIU/mL Normal 0.358-3.740 [facility] Comment on above: Performed By: #### T SH, T7, LIPID, CMP #### [facility] [address] [place] [address] Dr. Jemma Covarrubias Covid-19 PCR (CVDTB)on 02-25 SARS-CoV-2 (COVID-19) RNA DANYEL+probe Ql (Unsp spec) Not detected Normal NOT DETECTED [facility] Comment on above: Result Comment: This test is not yet approved or cleared by the [place] FDA. When there are no FDA-approved or cleared tests available, and other criteria are met, FDA can make tests available under an emergency access mechanism called an Emergency Use Authorization (EUA). The EUA for this test is supported by the Beef Trimmer of Health and Human Service's (HHS's) declaration [...] consistent with SARS-CoV-2. Performed By: #### C [facility] #### [facility] [address] [place] [address] Dr. Jemma Covarrubias Vital Signs Date Time Vital Sign Value Performing Clinician Faci lity 01-29-2024 10:55-0400 Body mass index (BMI) [Ratio] 26.22 kg/m2 Carole Dunbar MD Work Phone: [facility] 01-29-2024 10:55-0400 Body weight 67.13 kg Carole Dunbar MD Work Phone: [facility] 01-23-2024 11:47-0400 Body mass index (BMI) [Ratio] 26.39 kg/m2 Carole Dunbar MD Work Phone: [facility] 01-23-2024 11:47-0400 Body weight 67.59 kg Carole Dunbar MD Work Phone: [facility] 01-23-2024 11:47-0400 Diastolic blood pressure 78 mm[Hg] Carole Dunbar MD Work Phone: [facility] 01-23-2024 11:47-0400 Systolic blood pressure 128 mm[Hg] Carole Dunbar MD Work Phone: [facility] Healthcare Encounters Encounter Date Encounter Type Care Provider Facility Start: 05-28-2024 End: 05-28-[address] [facility] Work Phone: Start: 05-28-2024 End: 05-28-2024 Departed Referred Angella Saldivar MD Work Phone: [facility] [place] Work Phone: Start: 01-29-2024 End: 01-29-2024 Office outpatient visit 15 minutes Carole Dunbar MD Work Phone: [facility] Comment on above: Screening for malign ant neoplasm of cervix; Encounter for gynecological examination without abnormal finding; Dysmenorrhea; Menorrhagia with regular cycle; Vaginal itching; Acute vaginitis Start: 01-29-2024 End: 01-29-2024 Patient encounter status Carole Dunbar MD Work Phone: [facility] Start: 01-29-2024 End: 01-29-2024 ambulatory CAROLE DUNBAR Not Available Start: 01-23-2024 End: 01-23-2024 Office outpatient visit 15 minutes Carole Dunbar MD Work Phone: [facility] Comment on above: Acute vaginitis (Nadia frederick Dx); Vaginal itching Start: 01-23-2024 End: 01-23-2024 ambulatory CAROLE DUNBAR Not Available Start: 11-14-2021 Encounter for genera l adult medical examination without abnormal findings DR MUNIR PORTILLO [facility] Start: 11-10-2021 End: 11-11-[address] [...] 02/03/2025 10:30 AM EDT Office Visit [facility] [address] [place] [phone] Carole Dunbar MD [address] [place] [address] [facility] Start: 05-28-2024 Fungal Culture Result 1 Fungal Cultu re Result 1 [facility] Start: 05-28-2024 Mycology Culture Mycology Culture [facility] Start: 05-28-2024 Superficial Wound Culture Superficial Wound Culture [facility] Start: 05-28-2024 [facility] Start: 01-29-2024 End: 01-29-2024 Patient encounter procedure 01/29/2024 10:15 AM EDT Office Visit [facility] [address] [place] [phone] Carole Dunbar MD [address] [place] [address] [facility] Fungus identified in Unspecified specimen by Culture [facility] GENITOURINARY INFECT ION (HTRX) GENITOURINARY INFECTION (HTRX) Lab Routine Vaginal itching Acute vaginitis Ordered: 01/29/2024 [facility] Comment on above: Ordered: 01/29/2024 SENDOUT TEST MISCELLANEOUS [facility] SENDOUT TEST MISCELLANEOUS [facility] Lab Routine Screening for malignant neoplasm of cervix Encounter for gynecological examination without abnormal finding Ordered: 01/29/2024 [facility] Work Phone: Comment on above: Ordered: 01/29/2024 Payers Date Payer Category Payer Self-pay 2022 Unknown BCBS BCBS [id number] [id number] 2022-Present [phone] [address] [place] [id number] 1986 Unknown [id number] 1986 Unknown [id number] 1986 Unknown [id number] 1986 Unknown [id number] 1986 Unknown [id number] 1959 Self-pay [id number] 1959 Unknown [id number] 1959 Unknown [id number] Unknown [id number] Social History Date Type Detail Facility Start: 12-26-2022 Tobacco smoking status AKIS Never smoked tobacco [facility] Start: 12-26-2022 Tobacco use and exposure Smokeless tobacco non-user [facility] [facility] Start: 01-23-2024 End: 01-29-2024 Alcoholic beverage intake Ex-drinker (finding) [facility] Start: 12-26-2022 End: 03-13-2023 History of Social function [facility] Start: 12-26-2022 End: 03-13-2023 Alcohol Use Disorder Identification Test - Consumption [AUDIT-C] [facility] How often to you hav e a drink containing alcohol? Never [facility] How many standard dr inks containing alcohol do you have on a typical day? Patient does not drink [facility] Start: 1985 Sex assigned at Not on file [facility] Work Phone: Start: 05-29-2024 Sex Female (finding) [facility] Start: 1985 Sex Assigned At Female [facility] History of Present illness Narrative 01-29-2024 [...] Facility Evaluation note No assessment information availa [facility] Work Phone: Summary Purpose Family History [...] and content) DATE CREATED AUTHOR 11/29/2021 [facility] DATE CREATED AUTHOR AUTHOR'S ORGANIZ ATION 01/30/2024 [facility] EPIC DATE CREATED AUTHOR AUTHOR'S ORGANIZ ATION 07/10/2024 [facility] Reason for Visit (unrecogniz ed section and content) Reason Comments Vaginal Itching Reason Comments Gynecologic Exam Care Teams (unrecognized sec tion and content) [employer] Relationship Specialty Start Date End Date Munir Portillo MD [address] [place] [address] PCP - General Family Medicine 12/26/22 Haz [employer] Relationship Specialty Start Date End Date Munir Portillo MD [address] [place] [address] PCP - General Family Medicine 12/26/22 Team [...] BE BASED ON THE PRIMARY CLINICAL RECORDS. [facility] [employer] provides no warranty or guarantee of the accuracy or completeness of information in this document.
[2025-01-07 10:59] LABS: Hematocrit 37.6 % (36.0-48.0); Hemoglobin 12.8 g/dL (12.0-16.0); Immature Granulocytes Abs Auto 0.01 10^3/uL (0.00-0.03); Immature Granulocytes Pct Auto 0.2 % (0.0-0.5); Lymphocytes Absolute Auto 1.8 10^3/uL (1.2-3.8); Mean Corpuscular HGB Conc 34.0 g/dL (29.9-35.2); Mean Corpuscular Hemoglobin 29.0 pg (26.7-34.0); Mean Corpuscular Volume 85.1 fL (81.0-99.0); Platelet Count 272 10^3/uL (150-450); Red Blood Count 4.42 10^6/uL (4.20-5.40); White Blood Count 6.5 10^3/uL (4.0-11.0)
[2025-01-07 11:42] LABS: Iron 129.0 ug/dL (50.0-170.0)
[2025-01-07 12:31] LABS: Ferritin 31.0 ng/mL (8.0-252.0)
== END 2025-01-07 10:25 | disposition home or self-care (01) ==
LOC: LAB 10:25
PROVIDERS: PCP Family Medicine; Visit Provider Family Medicine
DX: N92.0 Excessive and frequent menstruation with regular cycle (principal); R53.83 Other fatigue
CPT/HCPCS: 36415; 82728; 83540; 85025

== ENCOUNTER 2025-04-02 08:04 | Outpatient (OUT) | payer BC, SELFPAY ==
--- OUTSIDE RECORDS SUMMARY | 2010-04-03 03:15 | XMS_ITS | Continuity of Care Document ---
Author Organization [facility] Address [address] [place] [address] Phone Care Team Providers Care Film Developer Name Role Phone Marisa Morris CNP Unavailable Unavailabl e Procedures Procedure Date PREV VISIT, NEW, AGE 18-39 SPECIMEN HANDLING THIN PREP AND HPV OFFICE/OUTPATIENT VISIT, [facility] URINE TEST Advance Directives Directive Yes / No Effective Date File Name No Information Encounters Encounter Description Practice Location Reason(s) For Visit Diagnoses Date Provider Providers Copied on Encounter PREV VISIT, NEW, AGE 18-39 [facility], [address], [place], [id number], [place] tel:[phone] [facility] No Information Arturo Cunningham. [address], [place], [id number]. tel:[phone] OFFICE/OUTPAT IENT VISIT, EST [facility], [address], [place], [id number], [place] tel:[phone] [facility] No Information Visci DO Desmond. [address], [place], [id number], [place]. tel:[phone] Family History Family Member Type Diagnosis Age At Onset No Information Payers Payer name Insurance type Covered constitution party ID Authoriza tion(s) No Information Social History Type Description Quantity Date Captured Comments Sex Female Smoking Status No Information Chief Complaint And Reason For Visit No Information Reason For Referral Reason For Referral No Information History Of Present Illness Encounter Date Complaint History Of Prese nt Illness No Information Functional Status Date Functional Assessmen t No Information Instructions Date Instruction Additional Infor mation No Information Assessments Type Assessment Date No Information Patient Care Teams Name Effective Dates (start - stop) Status Members No Information
--- OUTSIDE RECORDS SUMMARY | 2025-03-24 19:43 | XMS_ITS | Continuity of Care Document ---
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 Role Phone Desmond Barron DO Attending Provider [phone] Judah Portillo MD Primary Care Provider Care Teams Patient Care Team Team Status: Active Member Role/Relationship Status Dates Judah Portillo MD Primary Care Provider Active Visit Care Team Team Status: Inactive Member Role/Relationship Status Dates Desmond Barron DO Attending Provider Active Sta rt: March 24, 2025 End: March 24, 2025DoManuel Calvo Care ProviderActiveStart: March 24, 2025 End: March 24, 2025 Chief Complaint and Reason for Visit Chief Complaint Admit Date Enlarged Uterus, Dysmenorrhea, Menorrhag ia March 24, 2025 10:26am Allergies, Adverse Reactions, Alerts Allergen Type Severity Reaction Last Updated Verified Status gentamicin Allergy Moderate Hives March 24, 2025 11:21am Y es Active Penicillins Allergy Moderate Hives March 24, 2025 11:21am Yes Active Social History Smoking Status Status Start Date End Date Date of Observa tion Never smoked tobacco (finding) March 24, 2025 10:47am Observation Status Observation Response Date of Response Legal Sex [facility]) [facility] 1985 Family [facility] Relationship Condition Age at Onset Recorded Date/T bandar mother Atrial fibrillation Unknown fatherNon-Hodgkin lymphomaUnknownsisterMonoclonal mast cell activation syndrome Unknown Medications Medication Status Dose Units Route Directions Qty Days Refills S tart Date Stop Date End Date Reason(s) Instructions Adherence Ferrous Sulfate 325 mg (65 mg iron) tablet Active 325 MG PO Twice daily March 24, 2025 12:00amUnknown Relevant Diagnostic Tests and/or Laboratory Data Laboratory Results Test Collection Date/Time Result Date/Time Result Interpretation Reference Range Result Comment Performing Site Corrected White Blood Count March 24, 2025 11:57am March 24, 2025 12:28pm 9.0 10*3/uL 3[facility] [id number] [address] [facility] [address]Cghfilykcuw WBC CountOctober 2024 11:57amOctober 2024 12:28pm9.0 10*3/uL3.8-11.6F[facility] [id number] [address] [facility] [address]Nun Blood CountOctober 2024 11:57amOctober 2024 12:28pm4.74 10*6/uL3.60-5.00[facility] [id number] [address] [facility] 31124CtysravqdwIjsdbhy 2024 11:57amOctober 2024 12:28pm 15.0 g/dL11.8-15.4F[facility] [id number] [address] [place] [address] 89594LmxyvxcuhfMilxgyp 2024 11:57amOctober 2024 12:28pm 42.6 %34.0-46.4F[facility] [id number] [address] [facility] 77171Wctm Corpuscular VolumeOctober 2024 11:57amOctober 2024 12:28pm89.9 sN51-263EksgyafnkMercy Health St. [facility] [id number] [address] [place] [address] 78045Zqjs Corpuscular HemoglobinOctober 2024 11:57amOctober 2024 12:28pm31.7 pg24.7-34.3F[facility] [id number] [address] [facility] 18728Nnva Corpuscular Hemoglobin ConcentOctober 2024 11:57am March 24, 2025 12:28pm35.3 g/dLAbove high .0-35.0[facility] [id number] [address] [facility] [address]29[address]Ufy Cell Distribution WidthOctober 2024 11:57amOctober 2024 12:28pm14.0 %11.9-15.3F[facility] [id number] [address] [facility] 27838Gbegkkjo CountOctober 2024 11:57amOctober 2024 12:19xa857 10*3/cU102-737TihuckscpMercy Health St. [facility] [id number] [address] [facility] 14581Fuim Platelet VolumeOctober 2024 11:57amOctober 2024 12:28pm8.8 fL6.3-10.7F[facility] [id number] [address] [facility] 28882Mcoyrdbzjao (%) (Auto)March 24, 2025 11:57amOctober 2024 12:28pm76.[address] [id number] [address] [facility] 44762Vdrpudygtqs (%) (Auto)March 24, 2025 11:57amOctober 2024 12:28pm18.9 [address] [id number] [address] [facility] 66046Kgzlsrxgb (%) (Auto)March 24, 2025 11:57amOctober 2024 12:28pm4.2 [address] [id number] [address] [facility] 49200Ixxbsqlcpdx (%) (Auto)March 24, 2025 11:57amOctober 2024 12:28pm0.4 %.[facility] [id number] [address] [facility] 51919Wjctvltvr (%) (Auto)March 24, 2025 11:57amOctober 2024 12:28pm0.4 %.[facility] [id number] [address] [place] [address] 80249Pgtsxwzhp RBC Relative Count (auto)March 24, 2025 11:57am March 24, 2025 12:28pm0.1 /100{WBC}0-0.5F[facility] [id number] [address] [place] [address] 41378Sakhxxbeetc # (Auto)March 24, 2025 11:57amOctober 2024 12:28pm6.9 10*3/uL1.8-7.7F[facility] [id number] [address] [place] [address] 64511Ldjefhzyxyo # (Auto)March 24, 2025 11:57amOctober 2024 12:28pm1.7 10*3/uL1.00-4.8[facility] [id number] [address] [place] [address] 28594Pwzeaibxg # (Auto)March 24, 2025 11:57amOctober 2024 12:28pm0.4 10*3/uL0.0-0.8[facility] [id number] [address] [place] [address] 47051Mudcfkgoiwk # (Auto)March 24, 2025 11:57amOctober 2024 12:28pm0.0 10*3/uL0.0-0.45[facility] [id number] [address] [place] [address] 64264Eglibqlop # (Auto)March 24, 2025 11:57amOctober 2024 12:28pm0.0 10*3/uL0.0-0.2F[facility] [id number] [address] [place] [address] 58993Bjumfkm LevelOctober 2024 11:57amOctober 2024 12:44pm96 mg/aX19-516HXK recommended reference rangeRandom Glucose Reference Range is dependent on time and content of last meal. Glucose of more than 200 mg/dL in a nonstressed, ambulatory subject supports the diagnosisof Diabetes Mellitus.[facility] [id number] [address] [place] [address] 01509Iesik Urea NitrogenOctober 2024 11:57amOctober 2024 12:44pm8 mg/dL7-25[facility] [id number] [address] [facility] 55255DyndaquaghDwjwpex 2024 11:57amOctober 2024 12:44pm 0.57 mg/dLBelow low normal0.60-1.20[facility] [id number] [address] [facility] 29376Earkffygn GFR (CKD-EPI)March 24, 2025 11:57amOctober 2024 12:44pm> 60.0 mL/MinMercy Health St. [facility] [id number] [address] [facility] 28299Kxmjka LevelOctober 2024 11:57amOctober 2024 12:60uf624 mmol/R163-853CliwmrlsuMercy Health St. [facility] [id number] [address] [place] [id number] LevelOctober 2024 11:57amOctober 2024 12:44pm4.2 mmol/L3.5-5.1F[facility] [id number] [address] [facility] 74756Tsjolrto LevelOctober 2024 11:57amOctober 2024 12:65yd039 mmol/I76-213FqvyygyvjMercy Health St. [facility] [id number] [address] [place] 8805770Carbon Dioxide LevelOctober 2024 11:57amOctober 2024 12:44pm29.4 mmol/L21.0-31.0[facility] [id number] [address] [facility] 76597Jikcz GapOctober 2024 11:57amOctober 2024 12:44pm 9.8 mEq/L6.0-15.0[facility] [id number] [address] [place] [id number] LevelOctober 2024 11:57amOctober 2024 12:44pm9.7 mg/dL8.6-10.3F[facility] [id number] [address] [facility] 56894Tusjo ProteinOctober 2024 11:57amOctober 2024 12:44pm7.5 g/dL6.4-8.9[facility] [id number] [address] [facility] 15735MzpdvgeYdakroy 2024 11:57amOctober 2024 12:44pm4.9 g/dL3.5-5.7F[facility] [id number] [address] [facility] 22417WnbmkxcjIhmyvta 2024 11:57amOctober 2024 12:44pm2.6 g/dLMercy Health St. [facility] [id number] [address] [facility] 37607Ujfazzv/Globulin RatioOctober 2024 11:57amOctober 2024 12:44pm1.9[facility] [id number] [address] [facility] 83006Ubkxt BilirubinOctober 2024 11:57amOctober 2024 12:44pm0.7 mg/dL0.3-1.0[facility] [id number] [address] [facility] 98569Vlmbjrcmh Amino Transf (AST/SGOT)March 24, 2025 11:57am March 24, 2025 12:44pm12 U/LBelow low inphay29-86KfsqirmggMercy Health St. [facility] [id number] [address] [facility] 74210Sydsfyk Aminotransferase (ALT/SGPT)March 24, 2025 11:57am March 24, 2025 12:44pm11 U/L7-52[facility] [id number] [address] [facility] 18502Rrewdcwl PhosphataseOctober 2024 11:57amOctober 2024 12:44pm64 U/P96-365JmxboauufMercy Health St. [facility] [id number] [address] [facility] 78381Nycxluud Creatinine Clearance (ChemOctober 2024 11:57am March 24, 2025 12:44pmN/[facility] [id number] [address] [facility] [address] Advance Directives Advance Directive Response Recorded Date/ Time Advance Directives No May 28, 2024 7:19pm Insurance Providers Guarantor Radha Whitmore Address [address] [facility] [address]Bhoc[employer] Info.Home Phone: Coverage Status Update:2025 Payer Group Member ID Coverage Type Subscriber Relationship to Subscriber Effective Date Expiration Date Shar ZAPATA Id: [id number] L Moran Id: [id number] [facility] [address] Home Phone: Self Encounters Encounter Location(s) Arrival/Admit Date Discharge/Departure Date Discharge/Departure Disposition Provider(s) Departed Clinical -Pre-Surgica l Testing March 24, 2025 10:26am March 24, 2025 10:27am Discharged to home care or self care (routine discharge) Desmond Barron DO
--- OUTSIDE RECORDS SUMMARY | 2025-03-25 04:45 | XMS_ITS ---
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 Name Role Phone Juaquin Portillo Primary Care Provider Allergies Allergen (clinical drug ingredient) Drug/Non Drug Allergy documented on EMR Reaction Allergy Type Onset Date Status Effexorbody tinglingDrug AllergyActiveamoxicillinAmoxicillinhivesDrug Allergy ActivecefdinirCefdinirhivesDrug AllergyActivegentamicinGentamicinrashDrug AllergyActiveciprofloxacinCiprofloxacinchest painDrug AllergyActivedoxycycline DoxycyclinehivesDrug AllergyActive REASON FOR VISIT Was at [facility] for presurgical clearance- was having anxiety fast Heartrate- they did EKG- told to [place], Surgery- hysterectomy- 04/07/25- Dr Barron at [facility] Medications Medication SIG (Take, Route, Frequency, Duration) Notes Start Date End Date Status hydrOXYzine HCl 25 MG 1 tablet as needed Orally qid; Duration: 10 days 5ActiveFerrous Sulfate 325 (65 Fe) MG1 tablet Orally twice daily; Duration: 30 days5Active Social History Tobacco Use: Social History Observation Description Date Details (start date - stop date) Never Smoker NA - NA Tobacco Use/Smoking Question Answer Notes Patient is a nonsmoker Problems Problem Type SNOMED Code ICD Code Onset Dates Problem Status W/U Status Risk Notes Problem Anxiety (05878100) Anxiety (F41.9) Activeconfirmed Vital Signs Weight 152.8 lbs 03/25/2025 Height 63 in 03/25/2025 Blood pressure systolic 112 mm Hg 03/25/20 25 Blood pressure diastolic 80 mm Hg 025 BMI 27.06 kg/m2 03/25/2025 Procedures Procedure Date Ordered Date Performed Result Body Sit e EKG w Interp & Report - performed 03/25/2025 N/ACARDIO Fhqevejqkxchyx41/30/2025N/A Encounters Encounter Location Date Provider Diagnosis [facility] [address] [place] [address] 03/25/2025 Juaquin Portillo Heavy menstrual bleeding N92.0 ; Anxiety F41.9 and Abnormal ECG R94.31 Assessments Encounter Date Diagnosis (ICD Code) Assessment Notes Treatment Notes Treatment Clinical Notes Section Notes 03/25/2025 Heavy menstrual bleeding (ICD-10 - N92.0) Cleared for OR checking echo but ECG in office all normlal 03/25/2025nxiety (ICD-10 - F41.9)03/25/2025bnormal ECG (ICD-10 - R94.31)Old lateral changes - Plan Of Treatment Medication Medication Name Sig Start Date Stop Date Notes hydrOXYzine HCl 25 MG 1 tablet as needed Orally qid; Duration: 10 days 03/25/2025 Treatment Notes Assessment Notes Heavy menstrual bleeding Cleared for OR checking echo but ECG in office all normlal Abnormal ECG Old lateral changes - Pending Test Test Name Order Date EKG w Interp & Report - performed 2024 CARDIO Echocardiogram 03/25/2025 Procedure Notes * CategorySub-CategoryDetailNotesEKG w/InterpInterpretation:NSR - No acute changes Progress Notes * ANA ROSA Radha LDOB:[birth year] (39 yo F)Acc No.[id number]:03/25/2025 Progress Note Patient: Radha GRACIA :?Judah Portillo ([facility]), MDDOB:1985???Age: 39 Y???Sex:FemaleDate:03/25/2025Phone:[phone]:[address], [place], [place]Bhidt In:09:41 AM ESTCheck Out:10:42 AM EST Subjective: * Chief Complaints: * W as at [facility] for presurgical clearance- was having anxiety fast Heartrate- they did EKG- told to f/u hereSurgery- hysterectomy- 04/07/25- Dr Barron at [facility] * HPI: ???General:? Hysterectomy - possibel sebas oophoectomy Due to DUB ECG with tachycardia - no CP - no diaphoresis. * ROS: ???EENT:?hearing changes?denies.?visual changes?denies. non-healing mouth sores?denies.?swollen glands or neck lumps?denies.?hoarseness?denies.?sore throat?denies.?difficulty swallowing?denies.?nose bleeds?denies.?nasal congestion?denies.?ear ache?denies.?ear discharge denies.?ringing in ears?denies.?light sensitivity?denies.?eye pain?denies.?blurring?denies.?eye irritation?denies.?double vision?denies. vision loss?denies.?General/Constitutional:?Sweats:?Denies.?Fatigue?denies.?Sleep proble ms?denies.?Anorexia?denies.?Malaise?denies.?Weight loss?denies. Fatigue or Weakness?denies.?Fever or Chills?denies.?Cardiovascular:?Shortness of Breath w/lying flat?denies.?Lightheadedne ss/dizziness?denies.?Chest tightness/ heavy pressure?denies.?Swelling of legs, a nkles, or feet?denies.?Waking up with shortness of breath?denies.?Chest pain&#16 0;denies.?Palpitations?denies.?Weight gain?denies.?Respiratory:?Chronic or frequent cough?denies.?Coughing up blood&#1 60;denies.?Difficulty breathing?denies.?Productive cough?denies.?Snoring&#1 60;denies.?Shortness of breath that awakens from sleep (PND)?denies.?Chest pain? denies.?Sputum production?denies.?Wheezing?denies.?Musculoskeletal:?Joint pain?denies.?Joint Fluid?denies.?Backpain?denies.?Knee pain?denies.?Neck pain?denies.?Joint Stiffness?denies.?Muscle cramps?denies.?Weakness of muscles?denies.?Arthritis?denies.?Muscle aches?denies.?Pain in shoulder(s)?denies.?Swollen joints?denies.? * Active Problem List Z00.00 Well adult Modified On:01/29/2023/U Status:keaorffhbA85.90Cellulitis Modified On:11/01/2023/U Status:ydlramcwqT45.00Constipation Modified On:12/09/2024/U Status:gitwypjddE06.2Seasonal allergic reaction Modified On:12/09/2024/U Status:ywzbgyaycZ47.0Heavy menstrual bleeding Modified On:01/07/2025/U Status:kyqtebdgoP40.9Anxiety Modified On:03/25/2025/U Status:confirmed * Medical History: * Surgical History: G allbladder x2 * Hospitalization/Major Diagno stic Procedure: N o Hospitalization History. * Family History: F ather: unknown, Cancer- Bone Marrow, diagnosed with Cancer, Hypertension. M other: unknown, anxiety. B rother(s): unknown. S ister(s): unknown. S on(s): alive. 3 son(s) - healthy. . * Social History: ???Tobacco Use:?Tobacco Use/Smoking?Patient is a?nonsmoker * Medications: T akingFerrous Sulfate 325 (65 Fe) MG Tablet 1 tablet Orally twice daily Taking Ferrous Sulfate 325 (65 Fe) MG Tablet 1 tablet Orally twice daily DiscontinueddilTIAZem HCl ER Coated Beads 120 MG Capsule Extended Release 24 Hour 1 capsule Orally Once a day Lactulose 20 GM/30ML Solution 30 ml Orally bid Medication List reviewed and reconciled with the patientDiscontinued dilTIAZem HCl ER Coated Beads 120 MG Capsule Extended Release 24 Hour 1 capsule Orally Once a day Discontinued Lactulose 20 GM/30ML Solution 30 ml Orally bid Medication List reviewed and reconciled with the patient * Allergies: A moxicillin: hivesCiprofloxacin: chest painEffexor: body tinglingGentamicin: rashDoxycycline: hivesCefdinir: hivesno[Allergies Verified] Objective: * Vitals: W t:152.8lbs, Ht: 63 in, BP:112/80mm Hg, BMI:27.06Index, Ht-cm: 160.02 cm, Wt-k.31 kg. * Examination: ???Physical Exam: ?GENERAL:?well developed, well nourished, in no acute distress.?HEAD:?normocephalic/atraumatic.?EYES:?pupils equal, round and reactive to light, conjunctivae and sclerae normal.?EARS:?no deformity or lesion of external ear, canals and TM appear normal bilaterally, TM's intact, not inflamed with normal light reflex, hearing grossly normal to conversational speech.?NOSE:?no deformity, discharge, inflammation, or lesions. ?MOUTH:?mucous membranes moist, normal oropharynx and posterior pharynx without lesions or exudates, tongue normal, dentition normal.?NECK:?neck supple, no masses or palpable cervical nodes, trachea midline, thyroid without nodules, masses, tenderness, or enlargement.?CHEST:?no chest wall deformity, no chest wall tenderness. ?LUNGS:?normal respiratory effort and clear to auscultation, no wheezes, rales, or rhonchi, good air exchange.?CARDIO:?regular rate and rhythm, normal S1 and S2, nor murmur, rub, or gallop.?PULSES:?normal capillary refill.?ABDOMEN:?soft, non-distended, non-tender, no masses.?MUSCULOSKELETAL:?no deformity or scoliosis noted, normal range of motion, joints normal, no erythema, edema, effusion, or ecchymosis.?EXTREMITY:?no clubbing, cyanosis, edema, or deformity withnormal ROM in both upper and lower bilateral extremities.?NEUROLOGIC:?grossly normal.?SKIN:?no rashes, ulcerations, or suspicious lesions.?LYMPH NODES:?no cervical adenopathy, nodes normal.?MENTAL STATUS:?alert and oriented x3, normal mood and affect.? Assessment: * Assessment: 1.?Heavy menstrual bleeding - N92.0 (Primary)???2.?Anxiety - F41.9?&#1 60;?3.?Abnormal ECG - R94.31??? Plan: * Treatment: Start hydrOXYzine HCl Tablet, 25 MG, 1 tablet as needed, Orally, qid, 10 days, 40 Tablet.? Notes: Cleared for OR checking echo but ECG in office all normlal??2.?Abnormal ECG?Procedure: EKG w Interp & Report - performed ?Procedure: CARDIO Echocardiogram Notes: Old lateral changes - ?? * Procedures: ???EKG w/Interp:?Interpretation: ?NSR - No acute changes.? * Procedure Codes: 9 3000 EKG, WINTERP. * Preventive Medicine: ??Screenings/Counseling:?BMI ACTION PLAN?Above Normal BMI Follow-up?Dietary management education, guidance, and counseling * * Sign off status: CompletedVisit Status:?CHK (Check Out) true * Provider: Kris Portillo ([facility])MD Date: 1 Generated for Printing/Faxing/eTransmitting on:?04/02/2025 08:11 AM EST History and Physical Notes * HPI (History of Present Illness) CategorySub-CategoryDetailNotesCategory NotesGeneral Hysterectomy - possibel sebas oophoectomy Due to DUB ECG with tachycardia - no CP - no diaphoresis Examination CategorySub-CategoryDetailNotesCategory NotesPhysical ExamGENERAL:well developed, well nourished, in no acute distressHEAD:normocephalic/atraumatic EYES:pupils equal, round and reactive to light, conjunctivae and sclerae normal EARS:no deformity or lesion of external ear, canals and TM appear normal bilaterally, TM's intact, not inflamed with normal light reflex, hearing grossly normal to conversational speechNOSE:no deformity, discharge, inflammation, or lesionsMOUTH:mucous membranes moist, normal oropharynx and posterior pharynx without lesions or exudates, tonguenormal, dentition normalNECK:neck supple, no masses or palpable cervical nodes, trachea midline, thyroid without nodules, masses, tenderness, or enlargementCHEST:no chest wall deformity, no chest wall tendernessLUNGS:normal respiratory effort and clear to auscultation, no wheezes, rales, or rhonchi, good air exchangeCARDIO:regular rate and rhythm, normal S1 and S2, nor murmur, rub, or gallopPULSES:normal capillary refillABDOMEN:soft, non-distended, non-tender, no massesRECTAL:MUSCULOSKELETAL:no deformity or scoliosis noted, normal range of motion, joints normal, no erythema, edema, effusion, or ecchymosisEXTREMITY:no clubbing, cyanosis, edema, or deformity with normal ROM in both upper and lower bilateral extremitiesNEUROLOGIC:grossly normalSKIN:no rashes, ulcerations, or suspicious lesionsLYMPH NODES:no cervical adenopathy, nodes normalMENTAL STATUS:alert and oriented x3, normal mood and affect
--- OUTSIDE RECORDS SUMMARY | 2025-04-02 08:08 | XMS_ITS | CCD ---
Author Organization [facility] Care Team Providers Care General Office Associate Name Role Phone DR MUNIR PORTILLO Primary Care Unavailable BANDAR, DR AMARAL Admitting Unavailable BANDAR, DR AMARAL Attending Unavailable DEYVIY, DR AMARAL Attending Unavailable BANDAR, DR AMARAL Consulting Unavailable BANDAR, DR AMARAL Primary Care Unavailable DEYVIY, DR AMARAL Admitting Unavailable DEYVIY, DR AMARAL Consulting Unavailable BANDAR, DR AMARAL Primary Care Unavailable BANDAR, DR AMARAL Admitting Unavailable BANDAR, DR AMARAL Attending Unavailable Munir Portillo MD Primary Care Provider [phone] Angella Saldivar MD Attending Provider [phone] Angella Saldivar Attending Unavailable Janna, Angella Hernandez Admitting Unavailable Munir Portillo MD Primary Care Provider [phone] Munir Portillo MD Primary Care Provider [phone] CAROLE DUNBAR Attending Unavailable CAROLE DUNBAR Attending Unavailable DESMOND STONE Attending Unavailable DESMOND STONE Attending Unavailable Munir Portillo MD Primary Care Provider [phone] Munir Portillo Primary Care Unavailable Desmond Stone Attending Unavailable Visci, Desmond Admitting Unavailable Visci Desmond VERDIN Attending Provider [phone] Munir Portillo MD Primary Care Provider Allergies Allergy ClassificationReported Allergen(s)Allergy TypeDate of OnsetReaction(s) Facility (3 sources)Gentamicin Sulfate (ASSISTED)Drug Vnnidlf11-55-2576VgwlqBov [facility] Repository (3 sources)PenicillinsDrug allergy (disorder)18-33-1875DdidoOheUpper [facility] Rep[facility] (12 sources)GentamicinDrug Hifqdio92-45-5833DVYD [facility] (12 sources)PenicillinsDrug Bluqqdk18-01-5232YsctvCWZY Healthcare (1 source)Gentamicin Sulfate (ASSISTED)Drug Kgdcgvb15-32-5811YcginxagsUniversity Hospitals Health System Repository (1 source)PenicillinsDrug allergy (disorder)59-69-5918ZveogxwhqUniversity Hospitals Health System Repository Medications Current Medications MedicationDrug Class(es)DatesSig (Normalized)Sig (Original)ferrous sulfate 325 mg oral tablet (13 sources)Start: 61-85-2509whhq 1 tablet by mouth twice dailytake 1 tablet by mouth in the morningferrous sulfate 325 (65 Fe) MG EC tablet Take 325 mg by mouth in the morning and 325 mg before bedtime. Do not crush, chew, or split. . Activeterconazole 4 mg/ml vaginal cream (4 sources)Azole AntifungalStart: 01-23-2024 End: 63-55-8225kkwwfuidoet (Terazol 7) 0.4 % vaginal cream Indications: Vulvovaginal Candidiasis Insert 1 applicator into the vagina at bedtime for 7 days 45 g 2 01/23/2024 01/30/2024 Active Completed/Discontinued Medications MedicationDrug Class(es)DatesSig (Normalized)Sig (Original)desoximetasone 2.5 mg/ml topical cream (9 sources)Corticosteroid End: 06-15-9271vdriwzabeqljie (Topicort) 0.25 % cream 1 Application every 12 (twelve) hours 02/02/2025 Discontinued (Therapy completed)fluconazole 150 mg oral tablet (2 sources)Azole AntifungalStart: 01-23-2024 End: 01-88-0530twdn 1 tablet by mouth oncefluconazole (Diflucan) 150 MG tablet Indications: Vaginal itching , Acute vaginitis Take 1 tablet (150 mg) by mouth 1 (one) time for 1 dose 1 tablet 1 01/23/2024 01/23/2024 Expiredmeclofenamate 100 mg oral capsule (5 sources)Start: 01-06-2025 End: 84-19-5083yykm 1 tablet by mouth three times dailymeclofenamate (Meclomen) 100 MG capsule Indications: Menorrhagia with regular cycle 1 tablet orallytid while on menses 20 capsule 01/06/2025 02/02/2025 Discontinued (Therapy completed)medroxyPROGESTERone acetate 10 mg oral tablet (5 sources)ProgestinStart: 01-06-2025 End: 12-48-0224vghs 1 tablet by mouth once dailymedroxyPROGESTERone (Provera) 10 MG tablet Indications: Menorrhagia with regular cycle Take 1 tablet (10 mg) by mouth Daily Take 1 tablet by mouth daily for 7 days beginning on day 16 of the menstrual cycle. 14 tablet 3 01/06/2025 02/02/2025 Discontinued (Therapy completed)24 hr metoprolol succinate 25 mg extended release oral tablet (9 sources)beta-Adrenergic BlockerStart: 12-18-2022 End: 20-11-4832ngnd 1 tablet by mouth every twenty-four hours in the morning metoprolol succinate XL (Toprol-XL) 25 MG 24 hr tablet Take 25 mg by mouth in the morning. 12/18/2022 02/02/2025 Discontinued (Therapy completed)polyethylene glycol 3350 46601 mg powder for oral solution (9 sources)Osmotic LaxativeStart: 02-18-2023 End: 73-29-7751bzbxlcpadruy glycol, PEG, 3350 (MiraLax) 17 GM/SCOOP powder 02/18/2023 02/02/2025 Discontinued (Therapy completed)tacrolimus 0.001 mg/mg topical ointment (9 sources)Calcineurin Inhibitor Immunosuppressant End: 70-37-5046bjspxfuezm (Protopic) 0.1 % ointment 1 Application 1 (one) time each day at the same time 02/02/2025 Discontinued (Therapy completed) triamcinolone acetonide 1 mg/ml topical cream (9 sources)CorticosteroidStart: 01-29-2024 End: 91-47-5985aahxfaofisbsa (Kenalog) 0.1 % cream Indications: Vaginal itching Apply topically 2 (two) times a day 30 g 2 01/29/2024 02/02/2025 Discontinued (Therapy completed)Start: 01-23-2024 End: 23-31-8658vcolcliorhzfk (Kenalog) 0.1 % cream Indications: Vaginal itching Apply topically 2 (two) times a day 45 g 1 01/23/2024 01/23/2024 Discontinued Problems Active Problems Problem ClassificationProblemDateDocumented DateEpisodic/ChronicCardiac dysrhythmias (1 source)Palpitations; Translations: [PALPITATIONS]Onset: 09-63-3224Ljvomgty Deficiency and other anemia (4 sources)Iron deficiency anemia; Translations: [Iron deficiency anemia, unspecified]16-47-6550CqurrbnzCkjzwpngj disorders (16 sources)Dysmenorrhea; Translations: [Dysmenorrhea, unspecified]01-29-2024 ChronicOther endocrine disorders (4 sources)Disorder of endocrine system; Translations: [Endocrine disorder, unspecified]17-19-7580SfnuuqsrJegse female genital disorders (2 sources)Polyp of corpus uteri; Translations: [Polyp of corpus uteri] 97-24-7117ZjdlnmfcYsisa female genital disorders (2 sources)Enlarged uterus; Translations: [Hypertrophy of uterus]01-26-2025 EpisodicOther screening for suspected conditions (not mental disorders or infectious disease) (4 sources)Cancer cervix screening status; Translations: [Encounter for screening for malignant neoplasm of cervix]48-32-3132WldyomecYalkgcx cyst (4 sources)Cyst of right ovary; Translations: [Unspecified ovarian cyst, right side]95-55-9855OhnlvjccWwxwqnjc of female genital organs (2 sources)Cystocele; Translations: [Cystocele, unspecified]60-36-8203Jjwxoys Residual codes; unclassified (2 sources)Family history of endometriosis; Translations: [Family history of other diseases of the genitourinary system]37-53-6963VdkowidaFnmzaxbvojvs (3 sources)CONTACT W/AND (SUSP) EXPOS COVID-19; Translations: [CONTACT W/AND (SUSP) EXPOS COVID-19]Onset: 03-25-2021 Past or Other Problems Problem ClassificationProblemDateDocumented DateEpisodic/ChronicInflammatory diseases of female pelvic organs (4 sources)Acute vaginitis; Translations: [Acute vaginitis]54-56-4113Fpyyiusj Mycoses (2 sources)Tinea corporis; Translations: [Tinea corporis]Onset: 05-28-2024 EpisodicOther female genital disorders (4 sources)Pruritus of vagina; Translations: [Other specified noninflammatory disorders of vagina]64-91-4465BqjxddugOsvalcdtevfv (1 source)CONTACT W/AND (SUSP) EXPOS COVID-19; Translations: [CONTACT W/AND (SUSP) EXPOS COVID-19]Onset: 03-23-2021 Results Test NameValueInterpretationReference RangeFacilityAlbumin [Mass/volume] in Serum or Plasma by Bromocresol green (BCG) dye binding methoOrdered By: Desmond Stone on 02-06-8936Lomqaal BCG dye [Mass/Vol]4.9 g/dL3.5-5.7FKettering Health Hamilton W Auto Differential panel (Bld)on 58-59-2870Dgcetpvuq (Bld) [#/Vol]0.0 10*3/uL0.0 - 0.2 10*3/uLNOMS HealthcareBasophils/100 WBC Manual cnt (Syn fld)0.4 %.[facility] HealthcareEosinophils (Bld) [#/Vol]0.0 10*3/uL0.0 - 0.45 10*3/uLNOMS HealthcareEosinophils/100 WBC Manual cnt (Syn fld)0.4 %.[facility] WestErythrocyte distribution width (RBC) [Ratio]14.0 %11.9 - 15.3 %[facility] WestHematocrit (Bld) [Volume fraction]42.6 %34.0 - 46.4 %[facility] Hemoglobin (Bld) [Mass/Vol]15.0 g/dL11.8 - 15.4 g/dLSaint Joseph Hospital West Interpretation and review of laboratory resultsAbnormalSaint Joseph Hospital West Lymphocytes (Bld) [#/Vol]1.7 10*3/uL1.00 - 4.8 10*3/uLNOMS Healthcare Lymphocytes/100 WBC Manual cnt (Syn fld)18.9 %.[facility] WestMCH (RBC) [Entitic mass]31.7 pg24.7 - 34.3 pgNOSaint Francis Medical CenterMCHC (RBC) [Mass/Vol]35.3 g/xIXzxz02.0 - 35.0 g/dLSaint Joseph Hospital WestMCV (RBC) [Entitic vol]89.9 fL80 - 100 fLSALT LAKE REGIONAL MEDICAL CENTER HealthcareMonocytes (Bld) [#/Vol]0.4 10*3/uL0.0 - 0.8 10*3/uLNOMS Healthcare Monocytes+Macrophages/100 WBC Manual cnt (Syn fld)4.2 %.[facility] Neutrophils (Bld) [#/Vol]6.9 10*3/uL1.8 - 7.7 10*3/uLNOMS Healthcare Neutrophils/100 WBC Manual cnt (Syn fld)76.1 %.NOMS HealthcareNRBC0.1 /100{WBC}0 - 0.5 /100{WBC}NOMS HealthcarePlatelet mean volume (Bld) [Entitic vol]8.8 fL6.3 - 10.7 fLNOMS HealthcarePlatelets (Bld) [#/Vol]272 10*3/uL150 - 450 10*3/uLNOMS HealthcareRBC LM.HPF (Urine sed) [#/Area]4.74 10*6/uL3.60 - 5.00 10*6/uLNOMS HealthcareWBC (Bld) [#/Vol]9.0 10*3/uL3.8 - 11.6 10*3/uLNOMS HealthcareWBC LM.HPF (Urine sed) [#/Area]9.0 [CFU]/mL3.8 - 11.6 [CFU]/mLNOMS HealthcareNOMS HealthcareComplete Blood Count Auto DiffOrdered By: Desmond Stone on 03-24-2025 Basophils (Bld) [#/Vol]0.0 10*3/uLNormal0.0-0.2FSelect Medical [facility] [place] Comment on above:Result Comment: PERFORMED BY: [place] [address] PATHOLOGIST [employer] FRANCOISE RIVERA M.D.Performed By: #### CBC #### [facility] [address] [place] [address] USABasophils/100 WBC (Bld)0.4 %Normal.[facility] Health SystemComment on above:Performed By: #### CBC #### [facility] [address] [place] [address] USAEosinophils (Bld) [#/Vol]0.0 10*3/uLNormal0.0-0.45 [facility] SystemComment on above:Performed By: #### CBC #### [facility] [address] [place] [address] USAEosinophils/100 WBC (Bld)0.4 %Normal.[facility]als Health SystemComment on above:Performed By: #### CBC #### [facility] [address] [place] [address] USAErythrocyte distribution width (RBC) [Ratio]14.0 %Normal 11.9-15.3FSelect Medical Cleveland Clinic Rehabilitation Hospital, BeachwoodComment on above:Performed By: #### CBC #### [facility] [address] [place] [address] USAHematocrit (Bld) [Volume fraction]42.6 %Uxfzcx05.0-46.4 [facility] SystemComment on above:Performed By: #### CBC #### [place] [address] USAHemoglobin (Bld) [Mass/Vol]15.0 g/gHCukpjl71.8-15.4 [facility] SystemComment on above:Performed By: #### CBC #### [facility] [address] [place] [id number] USALymphocytes (Bld) [#/Vol]1.7 10*3/uLNormal1.00-4.8 [facility] SystemComment on above:Performed By: #### CBC #### [facility] [address] [place], [place] [id number] USALymphocytes/100 WBC (Bld)18.9 %Normal.[facility] Health SystemComment on above:Performed By: #### CBC #### [facility] [address] [place] [address] USAMCH (RBC) [Entitic mass]31.7 szZvhabt75.7-34.3FSelect Medical Cleveland Clinic Rehabilitation Hospital, BeachwoodComment on above:Performed By: #### CBC #### [facility] [address] [place] [address] USAMCV (RBC) [Entitic vol]89.9 rZYrovdv60-871HwvmpdsxzUniversity Hospitals Health SystemComment on above:Performed By: #### CBC #### [facility] [address] [place] [address] USAMonocytes (Bld) [#/Vol]0.4 10*3/uLNormal0.0-0.8[facility] Health SystemComment on above:Performed By: #### CBC #### [facility] [address] [place] [address] USAMonocytes/100 WBC (Bld)4.2 %Normal.[facility]als Health SystemComment on above:Performed By: #### CBC #### [facility] [address] [place] [address] USANeutrophils (Bld) [#/Vol]6.9 10*3/uLNormal1.8-7.7FSelect Medical Cleveland Clinic Rehabilitation Hospital, BeachwoodComascension river [facility] hospital on above:Performed By: #### CBC #### [facility] [address] [place] [address] USANeutrophils/100 WBC (Bld)76.1 %Normal.[facility]als Health SystemComment on above:Performed By: #### CBC #### [facility] [address] [place] [address] USAPlatelet mean volume (Bld) [Entitic vol]8.8 fLNormal 6.3-10.7FSelect Medical Cleveland Clinic Rehabilitation Hospital, BeachwoodComascension river district hospital on above:Performed By: #### CBC #### [facility] [address] [place] [address] USAPlatelets (Bld) [#/Vol]272 10*3/nQDwhdae804-266OvncdtyorUniversity Hospitals Health SystemComascension river district hospital on above:Performed By: #### CBC #### [facility] [address] [place] [address] USARBC (Bld) [#/Vol]4.74 10*6/uLNormal3.60-5.00[facility] SystemComascension river district hospital on above:Performed By: #### CBC #### [facility] [address] [place] [address] USAWBC (Bld) [#/Vol]9.0 10*3/uLNormal3.8-11.6FSelect Medical Cleveland Clinic Rehabilitation Hospital, BeachwoodComment on above:Performed By: #### CBC #### [facility] [address] [place] [address] USAComplete Blood Count Auto Diffon 22-88-8816Uljf Corpuscular HGB Conc35.3 g/aTPkvc58.0-35.0[facility] Physician GroupComment on above:Performed By: #### CBC #### [place] [address] USANRBC%0.1 /100{WBC}Normal0-0.5[facility] Comment on above:Performed By: #### CBC #### [place] [address] USAWhite Blood Count9.0 [CFU]/mLNormal3.8-11.6[facility] Physician [facility] HospitalComment on above:Performed By: #### CBC #### [place] [address] USAComprehensive Metabolic Panelon 67-14-4760Ytawxrv [Mass/Vol]4.9 g/dLNormal3.5-5.7[facility] Physician [facility] HospitalComment on above: Performed By: #### CMP #### [place] [address] USAGFR/1.73 sq M.predicted MDRD (S/P/Bld) [Vol rate/Area] mL/min/{1.73_m2}NormalThe [facility] Physician [facility] HospitalComment on above:Performed By: #### CMP #### [place] [address] USAComprehensive Metabolic PanelOrdered By: Desmond Stone on 99-60-4293Girmajg/Globulin [Mass ratio]1.9 {ratio}[facility], Edwin ShawComment on above:Performed By: #### CMP #### [place] [address] USAALP [Catalytic activity/Vol]64 U/CIutzja20-320OnkhdvwrlUniversity Hospitals Health SystemComment on above:Result Comment: PERFORMED BY: [address] [address] PATHOLOGIST [employer] FRANCOISE RIVERA M.D.Performed By: #### CMP #### [facility] [address] [place] [address] USAALT [Catalytic activity/Vol]11 U/LNormal7-52[facility] Hospit[facility] Health SystemComment on above:Performed By: #### CMP #### [facility] [address] [place] [address] USAAnion gap [Moles/Vol]9.8 mmol/LNormal6.0-15.0[facility] Health SystemComment on above:Performed By: #### CMP #### [facility] [address] [place] [address] USAAST [Catalytic activity/Vol]12 U/QHvd54-68KlssfqdisUniversity Hospitals Health SystemComment on above:Performed By: #### CMP #### [facility] [address] [place] [address] USABilirubin [Mass/Vol]0.7 mg/dLNormal0.3-1.0[facility] Health SystemComment on above:Performed By: #### CMP #### [facility] [address] [place] [address] USACalcium [Mass/Vol]9.7 mg/dLNormal8.6-10.3FSelect Medical Cleveland Clinic Rehabilitation Hospital, BeachwoodComment on above:Performed By: #### CMP #### [facility] [address] [place] [address] USAChloride [Moles/Vol]105 mmol/GIrulhp70-274VckbmkpjrUniversity Hospitals Health SystemComment on above:Performed By: #### CMP #### [facility] [address] [place] [address] USACO2 [Moles/Vol]29.4 mmol/NBkmaic43.0-31.0[facility] Hospit[facility] Health SystemComment on above:Performed By: #### CMP #### [facility] [address] [place] [address] USACreatinine [Mass/Vol]0.57 mg/dLLow0.60-1.20[facility] Health SystemComment on above:Performed By: #### CMP #### [facility] [address] [place] [address] USAGlobulin (S) [Mass/Vol]2.6 g/dLNormalUniversity Hospitals Health SystemComment on above:Performed By: #### CMP #### [facility] [address] [place] [address] USAGlucose [Mass/Vol]96 mg/eIXgjaqa08-072UbcvjeyxaUniversity Hospitals Health SystemComment on above:Result Comment: Random Glucose Reference Range is dependent on time and content of last meal. Glucose of more than 200 mg/dL in a nonstressed, ambulatory subject supports the diagnosis of Diabetes Mellitus. ADA recommended reference rangePerformed By: #### CMP #### [facility] [address] [place] [address] USAADA recommended reference rangeRandom Glucose Reference Range is dependent on time and content of last meal. Glucose of more than 200 mg/dL in a nonstressed, ambulatory subject supports the diagnosisof Diabetes Mellitus.Potassium [Moles/Vol]4.2 mmol/LNormal3.5-5.1FSelect Medical Cleveland Clinic Rehabilitation Hospital, BeachwoodComment on above:Performed By: #### CMP #### [facility] [address] [place] [address] USAProtein [Mass/Vol]7.5 g/dLNormal6.4-8.9[facility] Health SystemComment on above:Performed By: #### CMP #### [facility] [address] [place] [address] USASodium [Moles/Vol]140 mmol/SHypmou194-183WspopdjcrUniversity Hospitals Health SystemComment on above:Performed By: #### CMP #### [facility] [address] [place] [address] USAUrea nitrogen [Mass/Vol]8 mg/dLNormal7-25[facility] Health SystemComment on above:Performed By: #### CMP #### [place] [address] USAComprehensive metabolic panelon 21-18-1814Owbrsgk [Mass/Vol]4.9 g/dL3.5 - 5.7 g/dLNOMS HealthcareAlbumin/Globulin [Mass ratio]1.9 {ratio}NOMS HealthcareALP [Catalytic activity/Vol]64 U/L34 - 104 U/LNOMS HealthcareALT [Catalytic activity/Vol]11 U/L7 - 52 U/LNOMS HealthcareAnion gap [Moles/Vol]9.8 mmol/L6.0 - 15.0NOMS HealthcareAST [Catalytic activity/Vol]12 U/L Low13 - 39 U/LNOMS HealthcareBilirubin [Mass/Vol]0.7 mg/dL0.3 - 1.0 mg/dLNOMS HealthcareCalcium [Mass/Vol]9.7 mg/dL8.6 - 10.3 mg/dLNOMS HealthcareChloride [Moles/Vol]105 mmol/L98 - 107 mmol/LNOMS HealthcareCO2 [Moles/Vol]29.4 mmol/L 21.0 - 31.0 mmol/LNOMS HealthcareCreatinine (U) [Mass/Vol]0.57 mg/dLLow0.60 - 1.20 mg/dLNOMS HealthcareESTIMATED GFRNOMS HealthcareGlobulin (S) [Mass/Vol]2.6 g/dLNOMS HealthcareGlucose [Mass/Vol]96 mg/dL70 - 100 mg/dLNONM Healthcare Comment on above:Random Glucose Reference Range is dependent on time and content of last meal. Glucose of more than 200 mg/dL in a nonstressed, ambulatory subject supports the diagnosis of Diabetes Mellitus. ADA recommended reference range Interpretation and review of laboratory resultsAbnormalNOMS HealthcarePotassium [Moles/Vol]4.2 mmol/L3.5 - 5.1 mmol/LNOMS HealthcareProtein [Mass/Vol]7.5 g/dL 6.4 - 8.9 g/dLNONM HealthcareSodium [Moles/Vol]140 mmol/L136 - 145 mmol/LNOMS HealthcareUrea nitrogen [Mass/Vol]8 mg/dL7 - 25 mg/dLNOMS HealthcareNOMS HealthcareECG 12 lead ECGon 05-65-4195JYN 12 [place] [address] Electrocardiograph Report Signed Patient: Radha Whitmore MR#: [id number] : 1985 Acct:[id number] Age/Sex: 39 / F ADM Date: 03/24/25 Loc: PS Room: Type: [facility] Attending Dr: Desmond Stone DO Ordering Provider: Desmond Stone DO Date of Service: 03/24/25 ECG/ECG 12 lead ECG: pst Copies to: Test Reason : Blood Pressure : */* mmHG Vent. Rate : 119 BPM Atrial Rate : 119 BPM P-R Int : 154 ms QRS Dur : 78 ms QT Int : 296 ms P-R-T Axes : 78 77 49 degrees QTcB Int : 416 ms Sinus tachycardia Possible Lateral infarct , age undetermined Cannot rule out Inferior infarct , age undetermined Abnormal ECG No previous ECGs available Confirmed by Tadeo Higgins ([id number]) on 03/24/2025 3:40:31 PM Referred By: Electronically Signed By: Tadeo Higgins Transcribed By: MUS Signed By Tadeo Higgins MD 03/24/25 [facility] Physician GroupGlomerular filtration rate [Volume Rate/Area] in Serum, Plasma or Blood by CreatinineOrdered By: Desmond Stone on 73-58-0204Tthxhagyoq filtration rate [Volume Rate/Area] in Serum, Plasma or Blood by Creatinine> 60.0 mL/MinUniversity Hospitals Health System Leukocytes [#/volume] corrected for nucleated erythrocytes in Blood by Automated counOrdered By: Desmond Stone on 70-39-5321ZJH corrected for nucl RBC Auto (Bld) [#/Vol]9.0 10*3/uL3.8-11.6FSelect Medical Cleveland Clinic Rehabilitation Hospital, BeachwoodMCHC Auto (RBC) [Mass/Vol]Ordered By: Desmond Stone on 62-92-6811NQLH (RBC) [Mass/Vol]35.3 g/dL High32.0-35.0[facility] Health SystemNo Panel InformationOrdered By: Desmond Stone on 38-08-4735Ztbclyoc Creatinine Clearance (ChemN/AFSelect Medical Cleveland Clinic Rehabilitation Hospital, BeachwoodNucleated erythrocytes [Presence] in Blood by Automated countOrdered By: Desmond Stone on 97-91-1342Rokyogdtx RBC Auto Ql (Bld)0.1 /100{WBC}0-0.5FSelect Medical Cleveland Clinic Rehabilitation Hospital, BeachwoodPST Type and Screenon 03-24-2025 ABO and Rh group Nom (Bld)Blood group A Rh(D) positiveNoAtrium Health Mountain Island Physician GroupComment on above:Order Comment: Date of Surgery: Comment: PERFORMED BY: [facility] [place] [address] PATHOLOGIST [employer] FRANCOISE RIVERA M.D.Endometrial biopsyon 89-35-7658AhcvdmiDesmond Stone DO 02/15/2025 3:47 PM Endometrial biopsy Date/Time: 02/15/2025 11:15 AM Performed by: Desmond Stone DO Authorized by: Desmond Stone DO Consent: Consent obtained: verbal Consent given by: patient Risks discussed: bleeding, infection and pain Indications: Indications: abnormal uterine bleeding Procedure: A bimanual exam was performed: yes Prepped with: Betadine Tenaculum used: yes A local block was performed: no Cervix dilated: yes Number of passes: 1 Findings: Cervix: stenotic Uterus depth by sound (cm): 8 Specimen collected: specimen collected and sent to pathology Patient tolerance: tolerated well, no immediate complicationsNOMS HealthcareNOMS HealthcareFungus # 2 identified in Unspecified specimen by CultureOrdered By: Angella Saldivar on 04-56-3817Fueoes identified # 2 Cx Nom (Unsp spec)Fungus # 2 identified in Unspecified specimen by [facility] Fungus # 3 identified in Unspecified specimen by CultureOrdered By: Angella Saldivar on 14-56-8170Cwifae identified # 3 Cx Nom (Unsp spec)Fungus # 3 identified in Unspecified specimen by [facility] CenterFungus # 4 identified in Unspecified specimen by CultureOrdered By: Angella Saldivar on 69-70-6721Noqdsu identified # 4 Cx Nom (Unsp spec)Fungus # 4 identified in Unspecified specimen by [facility] Medical CenterFungus (Mycology) Cultureon [id number] (Mycology) CultureRIGHT UPPER ARM Preliminary report Final report RIGHT UPPER ARM Comment Trichophyton species Performed at: - Lab[address] [id number] Paper Final Inspector: Abhijeet Tejeda PhD, Phone: [phone] PERFORMED BY: [place] [address] PATHOLOGIST [employer] SALV[employer]ER ALBERT REILLY M.D.[facility] Physician GroupComment on above: Performed By: #### CUSUP #### [place] [address] [place] #### MYC CULT #### [facility] ,Performed By: #### MYC CULT #### [facility] , #### CUSUP #### [place] [address] USANo Panel InformationOrdered By: Angella Saldivar on 22-53-2245Hzlunwfa [facility] Hospitaluperficial Wound Cultureon [id number] Wound CultureRIGHT UPPER ARM Light Normal Skin Viri 2 Days PERFORMED BY: [place] [address] PATHOLOGIST [employer] SALV[employer]ER ALBERT REILLY M.D.[facility] Physician GroupComment on above: Performed By: #### CUSUP #### [place] [address] [place] #### MYC CULT #### [facility] ,Performed By: #### MYC CULT #### [facility] , #### CUSUP #### [place] [address] USALaboratory - Microbiology and Antimicrobial susceptibility on 01-26-2024. vaginae DNA DANYEL+probe Ql (Vag fld)Low - 0ScoreNOMS Healthcare Bacterial vaginosis associated bacterium 2 DNA DANYEL+probe Ql (Vag fld)Low - 0 ScoreNOMS HealthcareC. albicans DNA DANYEL+probe Ql (Vag fld)NegativeNegativeNOMS HealthcareC. glabrata DNA DANYEL+probe Ql (Vag fld)PositiveAbnormalNegativeNOMS HealthcareComment on above:Published data demonstrate that up to 65% of Nuzhat glabrata identified in cases of vaginal candidiasis have decreased susceptibility to fluconazole. C. trachomatis DNA DANYEL+probe Ql (Unsp spec)NegativeNegativeNOSaint Francis Medical Center Megasphaera sp type 1 DNA DANYEL+probe Ql (Vag fld)Low - 0[facility] Comment on above:Calculate total score by adding the 3 individual bacterial vaginosis (BV) marker scores together. Total score is interpreted as follows: Total score 0-1: Indicates the absence of BV. Total score 2: Indeterminate for BV. Additional clinical data should be evaluated to establish a diagnosis. Total score 3-6: Indicates the presence of BV. N. gonorrhoeae DNA DANYEL+probe Ql (Vag fld)NegativeNegativeSaint Joseph Hospital WestT. vaginalis DNA DANYEL+probe Ql (Vag fld)NegativeNegBlount Memorial HospitalNo Panel Informationon 93-76-4254Ivgveiycsyzmkg and review of laboratory resultsAbnormal [facility] WestTest(s) 255282- Atopobium vaginae; 443114- BVAB 2; 380289- Megasphaera 1 was developed and its performance characteristics determined by [employer]. It has not been cleared or approved by the Food and Drug Administration. Test(s) 958469-Zzfiuwl albicans, DANYEL; 308371-Sbxnpns glabrata, DANYEL was developed and its performance characteristics determined by [employer]. It has not been cleared or approved by the Food and Drug Administration. Performed at: 01 - [address] [id number] Paper Final Inspector: Dena Maki MD, Phone: [phone] of Pittsburgh Medical CenterVIT D 1 25 DIHYDROXYon 89-24-1782Dhuxspflnk(1,25 di-OH Vit D)41.6 pg/pIQvutlv98.8-81.5 [facility]Com[facility] on above:Result Comment: Please note reference interval changePerformed By: #### VBQI887 #### [facility] [address] [place] [address] Dr. Jemma CovarrubiasINSULINon 84-87-9776Mltckae8.7 uIU/mLNormal2.6-24.9[facility] on above:Performed By: #### INSULIN #### [facility] [address] [place] [address] Dr. Jemma CovarrubiasCBC AUTO DIFFon 60-32-2971VNZX #0.0 103/ulNormal0.0-0.1The [facility] Hospitalment on above:Performed By: #### CBC #### [facility] [address] [place] [address] Dr. Jemma CovarrubiasBasophils/100 WBC (Bld)0.6 %Normal0.2-2.0[facility] Comment on above:Performed By: #### CBC #### [facility] [address] [place] [address] Dr. Jemma Biggs #0.1 103/ulNormal0.0-0.7The [facility] HospitalComment on above: Performed By: #### CBC #### [facility] [address] [place] [address] Dr. Jemma Guptaosinophils/100 WBC (Bld)0.7 %Critically low0.9-7.0The [facility] HospitalComment on above:Performed By: #### CBC #### [facility] [address] [place] [address] Dr. Jemma Guptarythrocyte distribution width (RBC) [Ratio]13.4 %Tjkfbw75.0-15.0 The [facility] Hospitalment on above:Performed By: #### CBC #### [facility] [address] [place] [address] Dr. Jemma CovarrubiasHematocrit (Bld) [Volume fraction]34.4 %Critically low36.0-48.0 The [facility] HospitalComment on above:Performed By: #### CBC #### [facility] [address] [place] [address] Dr. Jemma CovarrubiasHemoglobin (Bld) [Mass/Vol]10.9 g/dLCritically low12.0-16.0The [facility] Hospitalment on above:Performed By: #### CBC #### [facility] [address] [place] [address] Dr. Jemma Miller #0.02 10e3/ulNormal0.00-0.03The [facility] HospitalComment on above:Performed By: #### CBC #### [facility] [address] [address] [address] Jemma Miller %0.3 %Normal0.0-0.5The [facility] on above: Performed By: #### CBC #### [facility] [address] [place] [address] Dr. Jemma Ruff #1.7 103/ulNormal1.2-3.8The [facility] HospitalComment on above:Performed By: #### CBC #### [facility] [address] [place] [address] Dr. Jemma Conklinhocytes/100 WBC (Bld)25.6 %Fepqfi71.5-60.0The [facility] on above:Performed By: #### CBC #### [facility] [address] [place] [address] Dr. Jemma VargasUAL DIFF REQNONormalThe [facility]own HospitalComment on above: Performed By: #### CBC #### [facility] [address] [place] [address] Dr. Jemma Robles (RBC) [Entitic mass]24.7 pgCritically low26.7-34.0The [facility] on above:Performed By: #### CBC #### [facility] [address] [place] [address] Dr. Jemma Robles (RBC) [Mass/Vol]31.7 g/jJRvvvkg13.9-35.2The [facility] on above:Performed By: #### CBC #### [facility] [address] [place] [address] Dr. Jemma Robles (RBC) [Entitic vol]78.0 fLCritically low81.0-99.0The [facility] on above:Performed By: #### CBC #### [facility] [address] [place] [address] Dr. Jemma Morales #0.3 103/ulNormal0.3-0.8The [facility] on above:Performed By: #### CBC #### [facility] [address] [place] [address] Dr. Jemma Galvanocytes/100 WBC (Bld)4.5 %Normal1.7-12.0[facility] Comment on above:Performed By: #### CBC #### [facility] [address] [place] [address] Dr. Jemma RolonUT #4.6 103/ulNormal1.4-6.5The [facility] HospitalComment on above:Performed By: #### CBC #### [facility] [address] [place] [address] Dr. Jemma Rolonutrophils/100 WBC (Bld)68.3 %Cfbmbl93.0-75.0The [facility] HospitalComment on above:Performed By: #### CBC #### [facility] [address] [place] [address] Dr. Jemma Barrlet mean volume (Bld) [Entitic vol]10.2 fLNormal9.5-13.5The [facility] HospitalComment on above:Performed By: #### CBC #### [facility] [address] [place] [address] Dr. Jemma CovarrubiasPLT299 103/dyCftwff651-105Adk [facility] HospitalComment on above: Performed By: #### CBC #### [facility] [address] [place] [address] Dr. Jemma CovarrubiasRBC4.41 106/ulNormal4.20-5.40The [facility] HospitalComment on above:Performed By: #### CBC #### [facility] [address] [place] [address] Dr. Jemma CovarrubiasWBC6.7 103/ulNormal4.0-11.0The [facility] HospitalComment on above: Performed By: #### CBC #### [facility] [address] [place] [address] Dr. Jemma Miranda THYROXINE INDEX T7on 89-75-1674WUX4.46Boqfuj0.30-4.50The [facility] HospitalComment on above:Performed By: #### TSH, T7, LIPID, CMP #### [facility] [address] [address] [address] Jemma CovarrubiasT3U31.0 %Evkmcp13.0-39.0The [facility] HospitalComment on above: Performed By: #### TSH, T7, LIPID, CMP #### [facility] [address] [address] [address] Jemma CovarrubiasT4 [Mass/Vol]8.50 ug/dLNormal4.80-13.90[facility] Comment on above:Performed By: #### TSH, T7, LIPID, CMP #### [facility] [address] [address] [address] Jemma CovarrubiasGLYCOHEMOGLOBIN A1Con 37-83-8174CEM RECOMMENDATIONSEE BELOWNoHocking Valley Community HospitalComment on above:Result Comment: ADA RECOMMENDED LIMIT 4.0 - 6.0 ADA THERAPEUTIC TARGET < 7.0 ACTION SUGGESTED > 7.0Performed By: #### A1C #### [facility] [address] [place] [address] Dr. Jemma CovarrubiasGlucose [Mass/Vol]103 mg/dLNoAultman Alliance Community HospitalComment on above:Performed By: #### A1C #### [facility] [address] [place] [address] Dr. Jemma CovarrubiasHbA1c (Bld) [Mass fraction]5.2 %Normal4.5-6.2The [facility] HospitalComment on above:Performed By: #### A1C #### [facility] [address] [place] [address] Dr. Jemma Field 51-84-1617Wlmw [Mass/Vol]28.0 ug/dLCritically low 50.0-170.0[facility] HospitalComment on above:Performed By: #### IRON #### [facility] [address] [place] [address] Dr. Jemma CovarrubiasLIPID PROFILEon 06-16-7270TNKL-HDL RATIO NORMSEE BELOWUniversity Hospitals Conneaut Medical CenterComment on above:Result Comment: 3.3 - 4.4 LOW RISK 4.4 - 7.1 AVERAGE RISK 7.1 - 11.0 MODERATE RISK >11.0 HIGH RISKPerformed By: #### TSH, T7, LIPID, CMP #### [facility] [address] [address] [address] Jemma Sinclairesterol [Mass/Vol]189 mg/dLNormal<=200[facility] Comment on above:Performed By: #### TSH, T7, LIPID, CMP #### [facility] [address] [address] [address] Jemma Sinclairesterol in HDL [Mass/Vol]53 mg/jNZolpxm85-17See [facility] HospitalComment on above:Performed By: #### TSH, T7, LIPID, CMP #### [facility] [address] [place] [address] Dr. Jemma Sinclairesterol in LDL [Mass/Vol]130.8 mg/dLUniversity Hospitals Conneaut Medical CenterComment on above:Performed By: #### TSH, T7, LIPID, CMP #### [facility] [address] [place] [address] Dr. Jemma Escobar.total/Cholesterol in HDL [Mass ratio]3.6 {ratio} NormalAvita Health System Ontario HospitalComment on above:Performed By: #### TSH, T7, LIPID, CMP #### [facility] [address] [place] [address] Dr. Jemma Diaz NORMAL> or = 60 mg/dl - LOW CARDIOVASCULAR RISK <40 mg/dl - HIGH CARDIOVASCULAR RISKUniversity Hospitals Conneaut Medical CenterComment on above:Performed By: #### TSH, T7, LIPID, CMP #### [facility] [address] [place] [address] Dr. Jemma CovarrubiasLDL CALC NORMALSEE BELOWUniversity Hospitals Conneaut Medical CenterComment on above:Result Comment: <100 mg/dl OPTIMAL 100 - 129 mg/dl NEAR OR ABOVE OPTIMAL 130 - 159 mg/dl BORDERLINE HIGH 160 - 189 mg/dl HIGH >190 mg/dl VERY HIGH Performed By: #### TSH, T7, LIPID, CMP #### [facility] [address] [address] [address] Jemma CovarrubiasTriglyceride [Mass/Vol]26 mg/dLNormal<=150[facility] Comment on above:Performed By: #### TSH, T7, LIPID, CMP #### [facility] [address] [address] [address] Jemma CovarrubiasVLDL CALC5.2 mg/dLNormalThe [facility] HospitalComment on above: Performed By: #### TSH, T7, LIPID, CMP #### [facility] [address] [address] [address] Jemma CovarrubiasPROF 14(COMP METB)on 19-35-9289Prfuzkh [Mass/Vol]4.0 g/dLNormal 3.4-5.0The [facility] HospitalComment on above:Performed By: #### TSH, T7, LIPID, CMP #### [facility] [address] [address] [address] Jemma CovarrubiasAlbumin/Globulin [Mass ratio]1.1 {ratio}NormalThe [facility] HospitalComment on above:Performed By: #### TSH, T7, LIPID, CMP #### [facility] [address] [address] [address] Jemma Odom [Catalytic activity/Vol]55 U/XMhvtwt18-731Whg [facility] HospitalComment on above:Performed By: #### TSH, T7, LIPID, CMP #### [facility] [address] [address] [address] Jemma Shukla [Catalytic activity/Vol]21 U/JBdanov88-06Pls [facility] HospitalComment on above:Performed By: #### TSH, T7, LIPID, CMP #### [facility] [address] [address] [address] Jemma Burch gap [Moles/Vol]15.6 mmol/LNormalThe [facility] Comment on above:Performed By: #### TSH, T7, LIPID, CMP #### [facility] [address] [address] [address] Jemma Marie [Catalytic activity/Vol]11 U/LCritically ssb73-95Zef [facility] HospitalComment on above:Performed By: #### TSH, T7, LIPID, CMP #### [facility] [address] [address] [address] Jemma CovarrubiasBilirubin [Mass/Vol]0.6 mg/dLNormal0.2-1.0The [facility] Comment on above:Performed By: #### TSH, T7, LIPID, CMP #### [facility] [address] [place] [address] Dr. Jemma CovarrubiasCalcium [Mass/Vol]8.9 mg/dLNormal8.5-10.1The [facility] Comment on above:Performed By: #### TSH, T7, LIPID, CMP #### [facility] [address] [place] [address] Dr. Jemma CovarrubiasChloride [Moles/Vol]104 mmol/FCkijuq67-528CkwAvita Health System [facility] Hospital Comment on above:Performed By: #### TSH, T7, LIPID, CMP #### [facility] [address] [place] [address] Dr. Jemma CovarrubiasCO2 [Moles/Vol]26.2 mmol/LQcioyi23.0-32.0[facility] Comment on above:Performed By: #### TSH, T7, LIPID, CMP #### [facility] [address] [place] [address] Dr. Jemma CovarrubiasCreatinine [Mass/Vol]0.61 mg/dLNormal0.55-1.02The [facility] HospitalComment on above:Performed By: #### TSH, T7, LIPID, CMP #### [facility] [address] [place] [address] Dr. Jemma GuptaGFR-AF SWEDISH>=60Normal>=60The [facility] HospitalComment on above:Performed By: #### TSH, T7, LIPID, CMP #### [facility] [address] [place] [address] Dr. Jemma GuptaGFR-NON AF SWEDISH>=60Normal>=60The [facility] HospitalComment on above:Performed By: #### TSH, T7, LIPID, CMP #### [facility] [address] [address] [address] Jemma CovarrubiasGlobulin (S) [Mass/Vol]3.7 g/dLNormGerman HospitalComment on above:Performed By: #### TSH, T7, LIPID, CMP #### [facility] [address] [address] [address] Jemma CovarrubiasGlucose [Mass/Vol]92 mg/lSSnprmp82-383Fmo [facility] Comment on above:Performed By: #### TSH, T7, LIPID, CMP #### [facility] [address] [place] [address] Dr. Jemma CovarrubiasPotassium [Moles/Vol]3.8 mmol/LNormal3.5-5.1The [facility] Comment on above:Performed By: #### TSH, T7, LIPID, CMP #### [facility] [address] [place] [address] Dr. Jemma CovarrubiasProtein [Mass/Vol]7.7 g/dLNormal6.4-8.2The [facility] Comment on above:Performed By: #### TSH, T7, LIPID, CMP #### [facility] [address] [place] [address] Dr. Jemma CovarrubiasSodium [Moles/Vol]142 mmol/YGpxtsk523-457Hkv [facility] Comment on above:Performed By: #### TSH, T7, LIPID, CMP #### [facility] [address] [place] [address] Dr. Jemma CovarrbuiasUrea nitrogen [Mass/Vol]10.0 mg/dLNormal7.0-18.0[facility] HospitalComment on above:Performed By: #### TSH, T7, LIPID, CMP #### [facility] [address] [place] [address] Dr. Jemma Shelton nitrogen/Creatinine [Mass ratio]16.4 mg/mgNoAultman Alliance Community HospitalComment on above:Performed By: #### TSH, T7, LIPID, CMP #### [facility] [address] [place] [address] Dr. Jemma Castillo 68-32-0670RJC2.411 uIU/mLNormal0.358-3.740The [facility] HospitalComment on above:Performed By: #### TSH, T7, LIPID, CMP #### [facility] [address] [place] [address] [address] [address] Jemma CovarrubiasCovid-19 PCR ([facility]VDJAMA[facility]IN [facility])on 02-39-9145THHD-CoV-2 (COVID-19) RNA DANYEL+probe Ql (Unsp spec)Not detectedNormalNOT DETECTEDThe [facility] Comment on above:Result Comment: This test is not yet approved or cleared by the [place] FDA. When there are no FDA-approved or cleared tests available, and other criteria are met, FDA can make tests available under an emergency access mechanism called an Emergency Use Authorization (EUA). The EUA for this test is supported by the [place] of Health and Human Service's (HHS's) declaration that circumstances exist to justify the emergency use of in vitro diagnostics for the detection and/or diagnosis of the virus that causes COVID- 19. This EUA will remain in effect (meaning [...] of clinical signs and symptoms consistent with SARS-CoV-2.Performed By: #### CVDTB #### [facility] [address] [place], [place] [address] Dr. Jemma Covarrubias Vital Signs Date TimeVital SignValuePerforming YramlhljbJdfjpwrb77-83-4597 10:52-0400Body xibiwv313 cmRichard Visci DO Work Phone: NOSaint [facility] CenterXyjwfglxkd04-45-5724 10:52-0400Body mass index (BMI) [Ratio]26.93 kg/d0Wemskjd Visci DO Work Phone: NOSaint [facility] Medical CenterEccjbotcvt89-93-7169 10:52-0400Body .95 kgRichard Visci DO Work Phone: [phone] [place], [place] [address]Qyqrhmjatf86-27-9174 10:52-0400Diastolic blood qzfiojdo72 mm[Hg]Desmond Visci DO Work Phone: [phone]-[facility] WestMkbrycxocl40-31-9768 10:52-0400Systolic blood wtycknfj769 mm[Hg]Desmond Visci DO Work Phone: [phone]-[facility] WestJpeqfhbtof48-22-8557 12:39-0400Body upktdx229 cm Desmond Visci DO Work Phone: [phone])[facility] [place], [place] [address]Dnkyaceaij03-21-0914 12:39-0400Body mass index (BMI) [Ratio]27.28 kg/g4Irktter Visci DO Work Phone: [phone] [place], [place] [address]Mbvrwtnzke76-99-4140 12:39-0400Body zcbguf48.85 kgRichcruz Visci DO Work Phone: [phone]-[facility] WestQxrqozehoo95-12-8131 12:39-0400Diastolic blood gdmnzuon50 mm[Hg]Desmond Visci DO Work Phone: [phone] [place], [place] [address]Dgbebebvxn74-28-8606 12:39-0400Systolic blood wxdciwbt304 mm[Hg]Desmond Visci DO Work Phone: [phone] [place], [place] [address]Vfulfqqswq62-80-5859 10:13-0400Body zxubhq435 cm Carole Dunbar MD Work Phone: [phone] [place], [place] [address]Wuqnehlhhh22-44-6903 10:13-0400Body mass index (BMI) [Ratio]27.1 kg/f5NvfvtoCarole Dunbar MD Work Phone: [phone]-[facility] WestPrrzowyhza87-08-5571 10:13-0400Body pzoyma79.4 kg Carole Dunbar MD Work Phone: [phone]-[facility] [address]Gjptnkwszq45-28-9129 10:13-0400Diastolic blood yinivqfi23 mm[Hg]Carole Dunbar MD Work Phone: [phone] [place] [address]-28-2025 10:13-0400Systolic blood ssabhobw949 mm[Hg]Carole Dunbar MD Work Phone: [phone] [place] [address]-13-2025 09:36-0400Body ckkadw505 cm Carole Dunbar MD Work Phone: [facility] WestMtojodxpsb90-62-1742 09:36-0400Body mass index (BMI) [Ratio]26.22 kg/c1TtzqzjCarole Dunbar MD Work Phone: [phone] [place], [place] [address]Cdecuqgjhm02-35-1756 09:36-0400Body ejephs87.13 Sara Dunbar MD Work Phone: [phone])[facility] [place] [address]-13-2025 09:36-0400Diastolic blood lfolubec68 mm[Hg]Carole Dunbar MD Work Phone: [phone] [place] [address]-13-2025 09:36-0400Systolic blood fighiqbb516 mm[Hg]Carole Dunbar MD Work Phone: [phone] [place], [place] [address]9-04-2024 10:55-0400Body mass index (BMI) [Ratio]26.22 kg/i9OtjsgtCarole Dunbar MD Work Phone: [phone] [place], [place] [address]Khgkcgjoke69-00-6943 10:55-0400Body kgaudf46.13 Sara Dunbar MD Work Phone: [phone] [place], [place] [address]8-29-2024 11:47-0400Body mass index (BMI) [Ratio]26.39 kg/t3RkvzgsCarole Dunbar MD Work Phone: [phone] [place] [address]-29-2024 11:47-0400Body uolorw38.59 Sara Dunbar MD Work Phone: [phone]-[facility] WestZfhfqftmyk76-76-0119 11:47-0400Diastolic blood kanutwpp46 mm[Hg]Carole Dunbar MD Work Phone: [phone] [place], [place] [address]Lolstlvxis73-63-8607 11:47-0400Systolic blood gtqdnpew234 mm[Hg]Carole Dunbar MD Work Phone: [facility] Healthcare Encounters Encounter DateEncounter TypeCare ProviderFacilityStart: 03-24-2025 End: 05-63-1762Ctbzwnji Result EncounterRichard A Visci DO Work Phone: noNM External Department UnsolicitedStart: 03-24-2025 End: 70-58-8377Oavhdzol Result EncounterRichard A Visci DO Work Phone: noMS External Department UnsolicitedStart: 03-24-2025 End: 06-29-7272Fucufbx encounter procedureRichcruz Clinton Visci [facility]jewl[facility]t [facility] Work Phone: Start: 03-24-2025 End: 30-04-5505cribqpomyeTvpmmnm Ann Bandarcility:[facility] Start: 02-15-2025 End: 22-22-4714Hgagpw outpatient visit 25 minutesRichard A Visci DO Work Phone: [facility] [place] OBGYNComment on above:Enlarged uterus; Family history of endometriosis; Menometrorrhagia; Dysmenorrhea; Cystocele with rectoceleStart: 02-15-2025 End: 59-14-6054shktqwryerQXQTPGJ A VISCINot AvailableStart: 02-02-2025 End: 01-34-2611Ntlode outpatient visit 25 minutesRichard A Visci DO Work Phone: [facility] [place] OBGYNComment on above:Enlarged uterus; Family history of endometriosis; Menometrorrhagia; Dysmenorrhea; Cystocele with rectoceleStart: 02-02-2025 End: 21-44-6876tqhojgpsxbUIFRRAS A VISCINot AvailableStart: 01-21-2025 End: 59-22-8904Uuwubx outpatient visit 10 minutesCarole Dunbar MD Work Phone: [facility] [place] OBGYNComment on above:Menorrhagia with regular cycle; Dysmenorrhea; Right ovarian cyst; Hormone imbalance; Iron deficiency anemia, unspecified iron deficiency anemia typeStart: 01-21-2025 End: 21-64-1111xzbjnjwgolXVGYYY P JONESNot AvailableStart: 01-06-2025 End: 37-41-1735Jhzpmwr encounter statusCarole Dunbar MD Work Phone: noms HealthcareStart: 01-06-2025 End: 53-57-0423Gptxsqdt preventive med est patient 18-39 yrsCarole Dunbar MD Work Phone: [facility] [place] OBGYNComment on above:Encounter for screening for cervical cancer (Primary Dx); Menorrhagia with regular cycle; Dysmenorrhea; Endometrial polyp; Right ovarian cyst; Hormone imbalance; Iron deficiency anemia, unspecified iron deficiency anemia type; Encounter for gynecological examination without abnormal findingStart: 01-06-2025 End: 96-44-0196yxrilbyfegRQFGWC P JONESNot AvailableStart: 05-28-2024 End: 59-68-1425djllunqhgiCyglyeai W [facility] Work Phone: Start: 05-28-2024 End: 53-89-3860Owwmsxui Reyes Saldivar MD Work Phone: [facility] [place] Work Phone: Start: 01-29-2024 End: 27-23-8854Ziswhb outpatient visit 15 minutesCarole Dunbar MD Work Phone: noms SWS OBComment on above:Screening for malignant neoplasm of cervix; Encounter for gynecological examination without abnormal finding; Dysmenorrhea; Menorrhagia with regular cycle; Vaginal itching; Acute vaginitisStart: 01-29-2024 End: 99-50-1598Wokdrmv encounter statusCarole Dunbar MD Work Phone: noms HealthcareStart: 01-23-2024 End: 49-59-6129Hqarqn outpatient visit 15 minutesCarole Dunbar MD Work Phone: noms SWS OBComment on above:Acute vaginitis (Primary Dx); Vaginal itchingStart: 96-59-6261Gqegeiavu for general adult medical examination without abnormal findingsDR MUNIR HOAnish Memorial Hospitaltart: 11-10-2021 End: 46-07-3228zuflphzpgdWH MUNIR HOYFacility:G5Lilvk: 11-10-2021 End: 07-09-5530Nbzadsxxl for general adult medical examination without abnormal findingsDR MUNIR HOYFacility:U3Jowss: 21-32-5837zmphfmnxqeMW MUNIR HOY Facility:O5Rjdcc: 03-23-2021 End: 97-11-7871yrvaaqgicvBQ MUNIR HOYFacility:H1 Procedures DateProcedureProcedure DetailPerforming ClinicianStart: 12-01-5452Qecmzcmh screenAngella SaldivarComment on above:Order Comment: Date of Surgery: [id number] Result Comment: PERFORMED BY: [facility] [place] [id number] PATHOLOGIST [employer] FRANCOISE RIVERA M.D.Start: 87-88-4282Ycyfvsal blood count with white cell differential, automatedRichard A Visci DO Work Phone: start: 90-81-5926Afpuravukxjge metabolic panelRichard A Visci DO Work Phone: start: 61-91-2689CUSBIJECCKT BIOPSYRichard A Visci DO Work Phone: start: 88-83-5409Vjtkcm Culture Result 2Jpatrick Saldivar MD Work Phone: Start: 77-18-8760Pzjwmb Culture Result 3Jpatrick Saldivar MD Work Phone: Start: 48-13-3590Dharnu Culture Result 4Angella Saldivar MD Work Phone: Start: 91-82-0851Zqdcjvxs SusceptibilityAngella Saldivar MD Work Phone: Start: 36-60-0819Aqrmh chlamydia trachomatis amplified probe tqCarole Dunbar MD Work Phone: Plan of Treatment DateCare ActivityDetailAuthorStart: 05-05-2025 End: 73-35-7348Uxlnfdo encounter euwrxucti17/10/2025 10:15 AM EST Office Visit [facility] [address] [place] [phone] Desmond Stone DO [address] [place] [address] [facility]BGYNStart: 03-29-2025 End: 82-99-6273Yqgcwml encounter dafjggyfq25/03/2025 10:00 AM EST Office Visit [facility] [place] [facility] [address] [place] [address] Carole Dunbar MD [address] [place] [address] [facility] [place] [facility]Start: 02-15-2025 End: 51-26-5136Yplizex encounter dzctpevok99/22/2025 10:15 AM EDT Procedure Visit [facility] [place] [facility] [address] [place] [address] Desmond Stone, DO [address] [place] [address] [facility] [place] [facility]: 02-03-2025 End: 65-23-7983Rkhzecm encounter /10/2025 10:30 AM EDT Office Visit [facility] [address] [place] [address] Carole Dunbar MD [address] [place] [address] [facility] OBStart: 02-02-2025 End: 33-52-0109Nddzckf encounter /09/2025 12:45 PM EDT Consult [facility] [place] [facility] [address] [place] [phone] Desmond Stone, DO [address] [place] [address] [facility] [place] [facility]Start: 01-21-2025 End: 95-35-6272Gbxbzfz encounter cphltfnlu72/28/2025 10:15 AM EDT Office Visit [facility] [place] [facility] [address] [place] [address] Carole Dunbar MD [address] [place] [address] [facility] [place] [facility]Start: 01-21-2025 End: 80-79-9090Uwxxnekptxcl / ancillary services nxycwmkvvp07/28/2025 9:30 AM EDT Ancillary Procedure [facility] [address] [place] [phone] [facility] [place] [facility]Start: 01-06-2025 End: 16-08-2067MROF Diagnostic ProfilePCOS Diagnostic Profile Lab Routine Hormone imbalance Expected: 01/06/2025 (Approximate), Expires: 01/06/2026[facility] Work Phone: comment on above:Expected: 01/06/2025 (Approximate), Expires: 01/06/2026Start: 68-07-9039Lhtokn Culture Result 1Fungal Culture Result [address] [place], [place] [address]tart: 19-60-5955Gtdqipct CultureMycology CultureLancaster Municipal Hospitaltart: 89-64-6061Lyqrbuusxsn Wound CultureSuperficial Wound CultureLancaster Municipal Hospitaltart: 86-48-3644ZjtjverfvLancaster Municipal Hospitaltart: 01-29-2024 End: 63-19-2961Jwdxmhe encounter nwiostabe10/04/2024 10:15 AM EDT Office Visit [facility] [address] [place] [address] Carole Dunbar MD [address] [place] [address] [facility] OBCBC panel - Blood by Automated countCBC Lab Routine Menorrhagia with regular cycle Iron deficiency anemia, unspecified iron deficiency anemia type Ordered: 01/06/2025[facility] HealthcareComment on above: Ordered: 01/06/2025Ferritin [Mass/volume] in Serum or PlasmaFerritin Lab Routine Menorrhagia with regular cycle Iron deficiency anemia, unspecified iron deficie ncy anemia type Ordered: 01/06/2025[facility] HealthcareComment on above:Ordered: 01/06/2025Fungus identified in Unspecified specimen by [facility]GENITOURIN[facility] INFECTION (HTRX)GENITOURINARY INFECTION (HTRX) Lab Routine Vaginal itching Acute vaginitis Ordered: 01/29/2024[facility] Comment on above:Ordered: 01/29/2024IGP, APT HPV,RFX 16/18,45IGP, APT HPV,RFX 16/18,45 Lab Routine Encounter for gynecological examination without abnormal finding Encounter for screening for cervical cancer 01/06/2025 4:57 PM EDTNONM HealthcareIron and Iron binding capacity panel - Serum or PlasmaIron and TIBC Lab Routine Menorrhagia with regular cycle Iron deficiency anemia, unspecified iron deficiency anemia type Ordered: 01/06/2025[facility]: Ordered: 01/06/2025Pathology ReportPathology Report Pathology and Cytology Routine Enlarged uterus Family history of endometriosis Menometrorrhagia Dysmenorrhea Ordered: 02/15/2025[facility] Work Phone: comment on above:Ordered: 02/15/2025Progesterone Progesterone Lab Routine Hormone imbalance Ordered: 01/06/2025[facility] Comment on above:Ordered: 01/06/2025SENDOUT TEST MISCELLANEOUS [facility] MIS[facility]ANEOUS [facility] Lab Routine Screening for malignant neoplasm of cervix Encounterfor gynecological examination without abnormal finding Ordered: 01/29/2024[facility] Work Phone: comment on above:Ordered: 01/29/2024 Payers DatePayer CategoryPayerPolicy [id number] Cross Blue ShieldBCBS [id number] BC [id number] 2022-Present [phone] [address] [place] [address] [id number] [id number] 2.16840.1.012840.3.57[id number] 2.0.1.411026.3.57[id number] 2.16840.1.327828.3.57[id number] 2.160.1.983961.3.57[id number] 2.16840.1.503429.3.57[id number] 2.0.1.203841.3.57[id number] 2.16840.1.057233.3.579.2.402366-54-7657Htxx-[id number] [id number] 2.16840.1.7[id number] 2.840.1.816550.3.579.2.531 Social History DateTypeDetailFacilityStart: 12-26-2022 End: 12-01-2216Asjfyvm smoking status NHISNever smoked tobaccoNOMS Healthcare Start: 61-28-5632Skmkhdd use and exposureSmokeless tobacco non-userNOMS HealthcareStart: 01-23-2024 End: 72-14-5018Oythlpsrg beverage intakeEx-drinker (finding)[facility] Start: 12-26-2022 End: 71-68-1005Ophbgpt of Social functionNOMS HealthcareStart: 12-26-2022 End: 01-13-9869Quujlro Use Disorder Identification Test - Consumption [AUDIT-C] [facility] HealthcareHow often to you have a drink containing alcohol?NeverNOMS HealthcareStart: 91-10-2705Ast many standard drinks containing alcohol do you have on a typical day?Patient does not drinkNOMS HealthcareStart: 74-29-3214Foo assigned at [facility]Not on [facility] CenterTobacco smoking status NHISUnknown if ever smokedMckitrick Hospital Work Phone: Start: 59-26-5785UfoZarmtl (finding)[facility] Hospitaltart: 46-89-3563Tim Assigned At [facility] Clinical Notes 01-23-2024 to 02-15-2025 Note Date & WlnkLmzxLwjdwejl53-01-9835 History of Present illness Narrative* Desmond Stone, DO - 02/15/2025 10:15 AM EDTAssociated Order(s): Endometrial biopsy Post-Procedure Diagnose(s): Family history of endometriosis; Menometrorrhagia; Dysmenorrhea Images from the original note were not included. Subjective Radha [place] is a 39 y.o. female Chief Complaint Patient presents with Procedure Pt presents for EMB. History of Present Illness Current Outpatient Medications: ferrous sulfate 325 (65 Fe) MG EC tablet, Take 325 mg by mouth in the morning and 325 mg before bedtime. Do not crush, chew, or split. 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 History of transfusion Hypertension Mitral valve prolapse Ovarian cyst Past Surgical History: Procedure Laterality Date SECTION, LOW TRANSVERSE x2 CHOLECYSTECTOMY TONSILLECTOMY VAGINAL DELIVERY WISDOM TOOTH EXTRACTION Family History Problem Relation Name Age of Onset Endometriosis Mother Bone cancer Father Other (hysterectomy) Sister Other (hysterectomy) Maternal Grandmother OB History Para Term AB Living 3 0 0 0 0 3 SAB IAB Ectopic Multiple Live Births 0 0 0 0 3 # Outcome Date GA Lbr Gabo/2nd Weight Sex Type Anes PTL Lv 3 CS-LTranv HUSEYIN 2 CS-LTranv HUSEYIN 1 8 lb 2 oz Vag-Spont HUSEYIN Obstetric Comments Pap 01/29/24- Neg, HPV Neg HGB 01/21/25- 14.4 U/S 01/21/25- endoemtrium 13.6mm, uterus enlarged, no polyps or fibroids, LOC 2.3x2.4x2.3cm, R ovarynormal, no free fluid U/S 01/14/23- uterus enlarged, endometrial polyp [id number], endometrium 18.5mm, no fibroid, ADRRIUS 52g30a72kw, L ovary normal, no free fluid Review of Systems All negative unless documented in treatment Objective Visit Vitals BP 110/88 Ht 5' 3 Wt 152 lb LMP 01/29/2025 (Exact Date) BMI 26.93 kg/m OB Status Having periods Smoking Status Never BSA 1.75 m Allergies Allergen Reactions Penicillins Hives Gentamicin Other Reaction(s): Unknown Physical Exam Constitutional: Appearance: Normal appearance. Genitourinary: Vulva, bladder, rectum and urethral meatus normal. Genitourinary Comments: Gr 1 cystocele, Gr 2 rectocele Right Labia: No lesions or skin changes. Left Labia: No lesions or skin changes. No vaginal discharge. No vaginal atrophy present. Right Adnexa: not tender and no mass present. Left Adnexa: not tender and no mass present. No cervical motion tenderness or lesion. No parametrium nodularity or thickening present. Uterus is enlarged (12 weeks) and tender. Uterus is anteverted. HENT: Head: Normocephalic and atraumatic. Cardiovascular: Rate and Rhythm: Normal rate and regular rhythm. Heart sounds: Normal heart sounds. Pulmonary: Effort: Pulmonary effort is normal. Breath sounds: Normal breath sounds. Abdominal: General: There is no distension. Palpations: Abdomen is soft. There is no mass. Hernia: No hernia is present. Musculoskeletal: Right lower leg: No edema. Left lower leg: No edema. Neurological: Mental Status: She is alert and oriented to person, place, and time. Skin: General: Skin is warm and dry. Findings: No rash. Endometrial biopsy Date/Time: 02/15/2025 11:15 AM Performed by: Desmond Stone DO Authorized by: Desmond Stone DO Consent: Consent obtained: verbal Consent given by: patient Risks discussed: bleeding, infection and pain Indications: Indications: abnormal uterine bleeding Procedure: A bimanual exam was performed: yes Prepped with: Betadine Tenaculum used: yes A local block was performed: no Cervix dilated: yes Number of passes: 1 Findings: Cervix: stenotic Uterus depth by sound (cm): 8 Specimen collected: specimen collected and sent to pathology Patient tolerance: tolerated well, no immediate complications ICD-10-CM 1. Enlarged uterus N85.2 Pathology Report 2. Family history of endometriosis Z84.2 Endometrial biopsy Pathology Report 3. Menometrorrhagia N92.1 Endometrial biopsy Pathology Report 4. Dysmenorrhea N94.6 Endometrial biopsy Pathology Report 5. Cystocele with rectocele N81.10 N81.6 U/S 01/21/25- endoemtrium 13.6mm, uterus enlarged, no polyps or fibroids, LOC 2.3x2.4x2.3cm, R ovarynormal, no free fluid U/S 01/14/23- uterus enlarged, endometrial polyp 47e3s52ni, endometrium 18.5mm, no fibroid, DARRIUS 75v31d48nk, L ovary normal, no free fluid She states her menses have always been heavy but the past few years have gotten worse- passing blood clots, can bleed twice a month. Bleeding is so heavy she has a difficulty functioning and has to stay in bed. Admits to pelvic pain and cramping with menses. She was on hormones/OCP in the past, didnot tolerate well due to mood swings and also developed a lump in her leg. No family history that she is aware of with blood clots. Hx 2 csections and 1 vaginal - 8lb2oz. She is 100% positive she does not desire any more children. Revisited treatment options and she would like to proceed with hysterectomy. EMB completed today she tolerated this well. Surgical options reviewed. Through sharedmedical decision making she has decided on a TLH/BS with consent of oophorectomy if indicated. The procedure, alternatives and risks (bleeding, infection, blood clots, damage to bowel, bladder, and ureters) were reviewed. The possibility of conversion to an open case which would prolong recovery was discussed. She will receive IV antibiotics before surgery. May need to go home with a catheter after surgery. No heavy lifting or straining for at least 2 weeks. No tub bathing for 4 weeks. No IC for 6 weeks. All questions and concerns were addressed. Pt voiced understanding and consent signed. Entered by Marleen Leonard LPN acting as scribe for Dr. Desmond Stone. Signature: Marleen Leonard LPN The documentation recorded by the scribe accurately reflects the service(s) I personally performed and the decisions I made. Signature: Desmond Stone DO Assessment & Plan documented in this encounterSaint Joseph Hospital [id number] History of Present illness Narrative* Marleen Leonard LPN - 02/02/2025 12:45 PM EDT Images from the original note were not included. Subjective Radha [place] is a 39 y.o. female Chief Complaint Patient presents with Gynecologic Exam Pt presents for a second opinion for hysterectomy, ppj pt. History of Present Illness Current Outpatient Medications: ferrous sulfate 325 (65 Fe) MG EC tablet, Take 325 mg by mouth in the morning and 325 mg before bedtime. Do not crush, chew, or split. 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 Anemia Cardiopathy 2013 peripartum History of transfusion Hypertension Mitral valve prolapse Ovarian cyst Past Surgical History: Procedure Laterality Date SECTION, LOW TRANSVERSE x2 CHOLECYSTECTOMY TONSILLECTOMY VAGINAL DELIVERY WISDOM TOOTH EXTRACTION Family History Problem Relation Name Age of Onset Endometriosis Mother Bone cancer Father Other (hysterectomy) Sister Other (hysterectomy) Maternal Grandmother OB History Para Term AB Living 3 0 0 0 0 3 SAB IAB Ectopic Multiple Live Births 0 0 0 0 3 # Outcome Date GA Lbr Gabo/2nd Weight Sex Type Anes PTL Lv 3 CS-LTranv HUSEYIN 2 CS-LTranv HUSEYIN 1 8 lb 2 oz Vag-Spont HUSEYIN Obstetric Comments Pap 01/29/24- Neg, HPV Neg HGB 01/21/25- 14.4 U/S 01/21/25- endoemtrium 13.6mm, uterus enlarged, no polyps or fibroids, LOC 2.3x2.4x2.3cm, R ovarynormal, no free fluid U/S 01/14/23- uterus enlarged, endometrial polyp 53f2u74yo, endometrium 18.5mm, no fibroid, DARRIUS 63s09j65ro, L ovary normal, no free fluid Review of Systems All negative unless documented in treatment Objective Visit Vitals BP 122/82 Ht 5' 3 Wt 154 lb LMP 01/29/2025 (Exact Date) BMI 27.28 kg/m OB Status Having periods Smoking Status Never BSA 1.76 m Allergies Allergen Reactions Penicillins Hives Gentamicin Other Reaction(s): Unknown Physical Exam Constitutional: Appearance: Normal appearance. Genitourinary: Vulva, bladder, rectum and urethral meatus normal. Genitourinary Comments: Gr 1 cystocele, Gr 2 rectocele Right Labia: No lesions or skin changes. Left Labia: No lesions or skin changes. No vaginal discharge. No vaginal atrophy present. Right Adnexa: not tender and no mass present. Left Adnexa: not tender and no mass present. No cervical motion tenderness or lesion. No parametrium nodularity or thickening present. Uterus is enlarged (12 weeks) and tender. Uterus is anteverted. HENT: Head: Normocephalic and atraumatic. Cardiovascular: Rate and Rhythm: Normal rate and regular rhythm. Heart sounds: Normal heart sounds. Pulmonary: Effort: Pulmonary effort is normal. Breath sounds: Normal breath sounds. Abdominal: General: There is no distension. Palpations: Abdomen is soft. There is no mass. Hernia: No hernia is present. Musculoskeletal: Right lower leg: No edema. Left lower leg: No edema. Neurological: Mental Status: She is alert and oriented to person, place, and time. Skin: General: Skin is warm and dry. Findings: No rash. Procedures ICD-10-CM 1. Enlarged uterus N85.2 2. Family history of endometriosis Z84.2 3. Menometrorrhagia N92.1 4. Dysmenorrhea N94.6 5. Cystocele with rectocele N81.10 N81.6 U/S 01/21/25- endoemtrium 13.6mm, uterus enlarged, no polyps or fibroids, LOC 2.3x2.4x2.3cm, R ovarynormal, no free fluid U/S 01/14/23- uterus enlarged, endometrial polyp 10h4x01la, endometrium 18.5mm, no fibroid, DARRIUS 02z12t71ij, L ovary normal, no free fluid She states her menses have always been heavy but the past few years have gotten worse- passing blood clots, can bleed twice a month. Bleeding is so heavy she has a difficulty functioning and has to stay in bed. Admits to pelvic pain and cramping with menses. She was on hormones/OCP in the past, didnot tolerate well due to mood swings and also developed a lump in her leg. No family history that she is aware of with blood clots. Hx 2 csections and 1 vaginal - 8lb2oz. She is 100% positive she does not desire any more children. Discussed options, IUD, laparoscopy or hysterectomy as she doesnot want any more hormones due to severity of mood swings. If she would desire hysterectomy would need EMB. She states she has a hard time passing bowel movements, unsure if d/t constipation. Discussed GI to evaluate. She would like to proceed with hysterectomy, plan to return for EMB and encouraged Ibuprofen prior to appt. Entered by Marleen Leonard LPN acting as scribe for Dr. Desmond Stone. Signature: Marleen Leonard LPN The documentation recorded by the scribe accurately reflects the service(s) I personally performed and the decisions I made. Signature: Desmond Stone DO Assessment & Plan documented in this encounterSaint Joseph Hospital [id number] History of Present illness Narrative* Carole Dunbar MD - 01/21/2025 10:15 AM EDT Images from the original note were not included. Carole Dunbar MD Obstetrics and Gynecology Patient: Radha [place] : 1985 (39 y.o.) Exam Date: 01/21/2025 Reason for Visit - Chief Complaint Patient presents with Follow-up Patient present to discuss US results. Follow-up following in-house ultrasound to rule out the presence of a polyp Heavy unexpected menses Does not wish hormonal therapy History of Present Illness Family history endometriosis mother and gm Sister cervical dysplasia History of Present Illness The patient presents for follow-up regarding heavy menstrual bleeding and to discuss potential surgical intervention. She reports a family history of gynecological issues, including endometriosis in her mother and grandmother. The patient describes her last menstrual period as horrible, heavy, very heavy and unexpected. She mentions experiencing a long week with her menstrual cycle. The patient expresses interest in surgical management of her condition and is not interested in hormonal therapy. She reports having blood work done on the morning of the visit. The patient's ultrasound results were discussed, revealing a slightly enlarged uterus but otherwiseunremarkable findings. A small cyst was noted on the left side, which was described as typical for the patient. Visit Vitals BP 124/78 (BP Location: Left arm) Ht 5' 3 Wt 153 lb LMP 12/31/2024 BMI 27.10 kg/m OB Status Having periods Smoking Status Never BSA 1.76 m History of Present Illness, Associated Treatments and Results - OB History Para Term AB Living 3 0 0 0 0 0 SAB IAB Ectopic Multiple Live Births 0 0 0 0 3 # Outcome Date GA Lbr Gabo/2nd Weight Sex Type Anes PTL Lv 3 2 1 Obstetric Comments Pap 01/29/24- Neg, HPV Neg HGB 01/21/25- 14.4 U/S 01/21/25- endoemtrium 13.6mm, uterus enlarged, no polyps or fibroids, LOC 2.3x2.4x2.3cm, R ovarynormal, no free fluid U/S 01/14/23- uterus enlarged, endometrial polyp 74g7u10ro, endometrium 18.5mm, no fibroid, DARRIUS [id number], L ovary normal, no free fluid Constitutional: Negative. HENT: Negative. Eyes: Negative. Respiratory: [...] chew, or split. ., Disp: , Rfl: meclofenamate (Meclomen) 100 MG capsule, 1 tablet orally tid while on menses, Disp: 20 capsule, Rfl: 0 medroxyPROGESTERone (Provera) 10 MG tablet, Take 1 tablet (10 mg) by mouth Daily Take 1 tablet by mouth daily for 7 days beginning on day 16 of the menstrual cycle., Disp: 14 tablet, Rfl: 3 metoprolol succinate XL (Toprol-XL) 25 MG 24 hr tablet, Take 25 mg by mouth in the morning., Disp: , Rfl: polyethylene glycol, PEG, 3350 (MiraLax) 17 GM/SCOOP powder, , Disp: , Rfl: tacrolimus (Protopic) 0.1 % ointment, 1 Application 1 (one) time each day at the same time, Disp: ,Rfl: triamcinolone (Kenalog) 0.1 % cream, Apply topically 2 (two) times a day, Disp: 30 g, Rfl: 2 Past Medical History: Diagnosis Date Abnormal Pap smear of cervix 2008, repeat was normal 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 The myometrium is homogenous in echotexture. The endometrium appears normal in contour and thickness. The right ovary appears normal in size and echotexture. The left ovary contains a single thin-walled, sonolucent cyst, measuring 2.3 x 2.4 x 2.3 cm. There is no overt adnexal mass visualized. There is no free fluid visible within the pelvis. Assessment/Plan ICD-10-CM 1. Menorrhagia with regular cycle N92.0 2. Dysmenorrhea N94.6 3. Right ovarian cyst N83.201 4. Hormone imbalance E34.9 5. Iron deficiency anemia, unspecified iron deficiency anemia type D50.9 Menorrhagia and Irregular Menstrual Cycles Assessment: Patient reports experiencing heavy and unexpected menstrual bleeding with irregular cycle lengths, describing a long week and a short end. Family history significant for endometriosis in mother and grandmother, which may contribute to current symptoms. Recent ultrasound showed slightly enlarged uterus but was otherwise unremarkable, with no polyps and a small cyst on the left side noted as insignificant. Patient expresses interest in surgical intervention and declines hormonal therapy. Plan: - Follow up with Dr. GARCIA for surgical consultation and examination - Await results of recent blood work - Schedule telemedicine visit to discuss blood work results Assessment & Plan documented in this encounterSaint Joseph Hospital WestFrlazegdrw41-05-1218 History of Present illness Narrative* Carole Dunbar MD - 01/06/2025 9:45 AM EDT Images from the original note were not included. Carole Dunbar MD Obstetrics and Gynecology Patient: Radha [place]more : 1985 (39 y.o.) Exam Date: 01/06/2025 Reason for Visit - Chief Complaint Patient presents with Menstrual Problem Patient has been having heavy periods, 1 week she is experiencing heavy bleeding and then off for aweek, she is using pads and has to change it often, she passes large clots when she is on it, she was recently seen by PCP who did routine blood work and found her to be anemic, she is now on supplement Pap 02/17 Vasectomy LMP 12/31/2024 US 2022 Reviewed patient's US results with her today, uterus measures 129 x 47 x 70mm with volume of 223.5cm, endometrial depth measures 18.5mm, single area of increased echogenicity visualized within the endometrium measuring 10 x 9 x 13mm felt to represent an endometrial polyp, no fibroids, both ovaries are normal appearing with small cyst of right ovary measuring 17 x 14 x 20mm, no free fluid visualized within pelvis Hematocrit 36 History of Present Illness The patient presents for evaluation of bleeding issues. She has been experiencing heavy menstrual bleeding since the beginning of this month, which is a new development. Her last period started on 12/31/2024, following a week-long break after her previouscycle. She describes her periods as painful, often accompanied by contraction-like pain on her right side and lower back spasms. She does not experience night sweats. She has tried hormonal therapy twice in the past. The first time resulted in a large lump in her calf, and the second time led to severe depression characterized by uncontrollable crying. She is considering an intrauterine device (IUD) as a potential treatment option. She is open to the idea of a hy sterectomy but would like to explore other options first. She reports severe pain in her calf, which she describes as being so intense that she cannot bear any pressure on it. She has a history of amniotic fluid embolism during her last in 2012, which required a and intensive care. She also has a history of pp ccardiomyopathy during that event Gynecological History discussed: - Last menstrual period: 12/31/2024 - Frequency and flow: Heavy - Menstrual pain: Present CONTRACEPTION: - Type: - Reproductive plans: Considering hysterectomy Obstetrical History discussed: - History of amniotic fluid embolism during last in 2012 - Required and intensive care PAST MEDICAL HISTORY: - History of cardiomyopathy PAST SURGICAL HISTORY: - in 2012 FAMILY HISTORY Her mother had endometriosis and a complete hysterectomy at 26. Her sister had a partial hysterectomy due to the possibility of developing cancer later on. Her maternal grandmother also had a hysterectomy. Visit Vitals BP 116/68 (BP Location: Left arm) Ht 5' 3 Wt 148 lb LMP 12/31/2024 BMI 26.22 kg/m OB Status Having periods Smoking Status Never BSA 1.73 m History of Present Illness, Associated Treatments and Results - OB History Para Term AB Living 3 0 0 0 0 0 SAB IAB Ectopic Multiple Live Births 0 0 0 0 3 # Outcome Date GA Lbr Gabo/2nd Weight Sex Type Anes PTL Lv 3 2 1 Constitutional: Negative. HENT: Negative. Eyes: Negative. Respiratory: [...] chew, or split. ., Disp: , Rfl: meclofenamate (Meclomen) 100 MG capsule, 1 tablet orally tid while on menses, Disp: 20 capsule, Rfl: 0 medroxyPROGESTERone (Provera) 10 MG tablet, Take 1 tablet (10 mg) by mouth Daily Take 1 tablet by mouth daily for 7 days beginning on day 16 of the menstrual cycle., Disp: 14 tablet, Rfl: 3 metoprolol succinate XL (Toprol-XL) 25 MG 24 hr tablet, Take 25 mg by mouth in the morning., Disp: , Rfl: polyethylene glycol, PEG, 3350 (MiraLax) 17 GM/SCOOP powder, , Disp: , Rfl: tacrolimus (Protopic) 0.1 % ointment, 1 Application 1 (one) time each day at the same time, Disp: ,Rfl: triamcinolone (Kenalog) 0.1 % cream, Apply topically 2 (two) times a day, Disp: 30 g, Rfl: 2 Past Medical History: Diagnosis Date Abnormal Pap smear of cervix 2008, repeat was normal Amniotic fluid embolus [facility] 2013 Anemia Cardiopathy 2013 peripartum History of transfusion Hypertension Mitral valve prolapse Ovarian cyst Past Surgical History: Procedure Laterality Date SECTION, LOW TRANSVERSE x2 CHOLECYSTECTOMY TONSILLECTOMY VAGINAL DELIVERY WISDOM TOOTH EXTRACTION Family History Problem Relation Name Age of Onset Endometriosis Mother Bone cancer Father Other (hysterectomy) Sister Other (hysterectomy) Maternal Grandmother Mother: Lipids Maternal Grandmother: Hypertension Paternal Grandmother: Hypertension Maternal Uncle: Osteoporosis Social History Tobacco Use Smoking Status Never Smokeless Tobacco Never Physical Exam - General appearance, mentation, extraocular movements, facial strength and movement, hearing, upper and lower extremity strength and tone, sensation to gross testing, coordination, and gait are normalor at baseline unless noted below. Physical Exam Constitutional: Appearance: Normal appearance. Genitourinary: Right Labia: No rash or lesions. Left Labia: lesions. Left Labia: No rash. No vaginal discharge or erythema. No vaginal [...] dry. Psychiatric: Mood and Affect: Mood normal. Assessment/Plan ICD-10-CM 1. Encounter for screening for cervical cancer Z12.4 IGP, APT HPV,RFX 16/18,45 2. Menorrhagia with regular cycle N92.0 meclofenamate (Meclomen) 100 MG capsule medroxyPROGESTERone (Provera) 10 MG tablet CBC Iron and TIBC Ferritin 3. Dysmenorrhea N94.6 4. Acute vaginitis N76.0 5. Endometrial polyp N84.0 6. Right ovarian cyst N83.201 7. Hormone imbalance E34.9 PCOS Diagnostic Profile Progesterone PCOS Diagnostic Profile 8. Iron deficiency anemia, unspecified iron deficiency anemia type D50.9 CBC Iron and TIBC Ferritin 9. Encounter for gynecological examination without abnormal finding Z01.419 IGP, APT HPV,RFX 16/18,45 Assessment & Plan Pap and exam performed. Results can be found in MyChart in 7 days Return 1 year or prn 1. Menorrhagia. - The menorrhagia is likely due to a hormonal imbalance, possibly exacerbated by a polyp. - An ultrasound will be ordered to rule out the presence of a polyp. Blood work is scheduled for 01/22/2025. A consultation with RADHA will be arranged to discuss the possibility of a hysterectomy. Labwork ordered for hormonal imbalance and anemia - Progesterone will be taken from day 16 to 25 of her cycle, and meclizine will be taken three times daily during her period to manage pain and bleeding. She will continue her iron supplementation. Meclomen for menorrhagia and menstrual pain on menses Ultrasound in 2022 with OVC and endometrial polyp Follow up ultrasound ordered Follow up results visit after labwork and TVUS completed documented in this encounterSaint [facility] Hospital [id number] History of Present illness Narrative* Carole Dunbar MD - 01/29/2024 10:15 AM EDT Images from the original note were not [...] each day at the same time, Disp: ,Rfl: terconazole (Terazol 7) 0.4 % vaginal cream, [...] to gross testing, coordination, and gait are normalor at baseline unless noted below. Physical Exam [...] further evaluation and management. documented in this encounterSaint Joseph Hospital [id number] History of Present illness Narrative* Carole Dunbar MD - 01/23/2024 11:15 AM EDT Images from the original note were not [...] about 2 weeks ago and noticed it afterthat. Patient stated that last Saturday she used [...] each day at the same time, Disp: ,Rfl: terconazole (Terazol 7) 0.4 % vaginal cream, [...] to gross testing, coordination, and gait are normalor at baseline unless noted below. Physical Exam [...] applicator into the vagina at bedtime for 7days - fluconazole (Diflucan) 150 MG tablet; Take [...] as soon as possible [facility]* Diagnosis Acute vaginitis- Primary Unspecified vaginitis and vulvovaginitis Vaginal itching Pruritus of genital organs documented in this encounter [facility]* Diagnosis Screening for malignant neoplasm of cervix Screening for malignant neoplasm of the cervix Encounter for gynecological examination without abnormal finding Dysmenorrhea Menorrhagia with regular cycle Vaginal itching Pruritus of genital organs Acute vaginitis Unspecified vaginitis and vulvovaginitis documented in this encounter [facility] HealthcareEvaluation noteNo assessment information availableMetrohealth [facility] Work Phone: Evaluation note* Diagnosis Encounter for screening for cervical cancer- Primary Menorrhagia with regular cycle Dysmenorrhea Endometrial polyp Polyp of corpus uteri Right ovarian cyst Other and unspecified ovarian cyst Hormone imbalance Iron deficiency anemia, unspecified iron deficiency anemia type Encounter for gynecological examination without abnormal finding documented in this encounter [facility]* Diagnosis Menorrhagia with regular cycle Dysmenorrhea Right ovarian cyst Other and unspecified ovarian cyst Hormone imbalance Iron deficiency anemia, unspecified iron deficiency anemia type Enlarged uterus Hypertrophy of uterus documented in this encounter [facility]* Diagnosis Enlarged uterus Hypertrophy of uterus Family history of endometriosis Menometrorrhagia Excessive or frequent menstruation Dysmenorrhea Cystocele with rectocele documented in this encounter [facility] Healthcare[facility]* Diagnosis Enlarged uterus Hypertrophy of uterus Family history of endometriosis Menometrorrhagia Excessive or frequent menstruation Dysmenorrhea Cystocele with rectocele documented in this encounter [facility] HealthcareReason for referral (narrative)No reason for referral information availableMckitrick Hospital Work Phone: Summary Purpose Family History Relationship Condition Age at Onset Recorded Date/T bandar mother Atrial fibrillation Unknown fatherNon-Hodgkin lymphomaUnknownsisterMonoclonal mast cell activation syndrome Unknown Advance Directives Advance Directive Response Recorded Date/ Time Advance Directives No May 28, 2024 6:19pm Advance Directive Response Recorded Date/ Time Advance Directives No May 28, 2024 7:19pm Chief Complaint and Reason for Visit Chief Complaint Admit Date B35.4 May 28, 2024 1: 25pm Chief Complaint Admit Date Enlarged Uterus, Dysmenorrhea, Menorrhag ia March 24, 2025 10:26am Additional Source Comments INFORMATION SOURCE (unrecogn ized section and content) DATE CREATED AUTHOR 11/29/2021 [facility] DATE CREATED AUTHOR AUTHOR'S ORGANIZ ATION 07/10/2024 [facility] DATE CREATED AUTHOR AUTHOR'S ORGANIZ ATION 02/15/2025 [facility] EPIC DATE CREATED AUTHOR AUTHOR'S ORGANIZ ATION 03/25/2025 [facility] Reason for Visit (unrecogniz ed section and content) ReasonCommentsVaginal ItchingReasonCommentsGynecologic ExamReasonComments Menstrual ProblemReasonCommentsFollow-upPatient present to discuss US results. ReasonCommentsGynecologic ExamPt presents for a second opinion for hysterectomy, ppj pt.ReasonCommentsProcedurePt presents for EMB. Care Teams (unrecognized sec tion and content) Team MemberRelationshipSpecialtyStart DateEnd Munir Portillo MD [address] [place] [address] PCP - GeneralFamily Medicine12/26/22Team MemberRelationshipSpecialtyStart DateEnd Date Munir Portillo MD [address] [place] [address] PCP - GeneralFamily Medicine12/26/22 Team Status: Inactive Member Role Status Dates Angella Saldivar MD Attending Provider Active Start: May 28, 2024 End: May 28, 2024Team MemberRelationshipSpecialtyStart DateEnd Date Munir Portillo MD PCP - [facility]12/26/22Team MemberRelationshipSpecialtyStart DateEnd Date Munir Portillo MD PCP - [facility]12/26/22Team MemberRelationshipSpecialtyStart DateEnd Date Munir Portillo MD PCP - [facility]12/26/22Team MemberRelationshipSpecialtyStart DateEnd Date Munir Portillo MD [address] [place] [address] [facility]12/26/22Team MemberRelationshipSpecialtyStart DateEnd Date Munir Portillo MD [address] [place] [address] PCP - [facility]12/26/22 Team Status: Active Member Role/Relationship Status Dates Munir Portillo MD Primary Care Provider Active Team Status: Inactive Member Role/Relationship Status Dates Desmond Stone DO Attending Provider Active Sta rt: March 24, 2025 End: March 24, 2025Manuel Shay Care ProviderActiveStart: March 24, 2025 End: March 24, 2025 Goals (unrecognized section and content) Goals may be documented in a n alternate sectionGoals may be documented in an alternate section FOR RECORDS PERTAINING TO PATIENTS [...] BE BASED ON THE PRIMARY CLINICAL RECORDS. [facility]. provides no warranty or guarantee of the accuracy or completeness of information in this document.
--- OUTSIDE RECORDS SUMMARY | 2025-04-02 08:09 | XMS_ITS | Encounter Summary ---
Author Organization [facility] Address [address] [place] [address] Care Team Providers Care Classroom Aide Name Role Phone Judah Portillo MD Primary Care Provider [phone] Encounter Details DateTypeDepartmentCare Team (Latest Contact Info)Zyczsaqrjpx32/29/2025External Result Encounter [facility] Unsolicited Desmond Barron DO [address] [place] [address] Social History Tobacco UseTypesPacks/DayYears UsedDateSmoking Tobacco: NeverSmokeless Tobacco: NeverAlcohol UseStandard Drinks/WeekCommentsNot Currently0 (1 standard drink = 0.6 oz pure alcohol)AUDIT-CAnswerDate RecordedQ1: How often do you have a drink containing alcohol?Never03/13/2023Q2: How many drinks containing alcohol do you have on a typical day when you are drinking?Patient does not drink03/13/2023Q3: How often do you have six or more drinks on one occasion?Never3PHQ-2 AnswerDate RecordedPatient Health Questionnaire-2 [id number] CommentsNoSex and Gender InformationValueDate RecordedSex Assigned at BirthNot on fileLegal HmyMyptun02/15/2023 11:23 PM EDTGender IdentityNot on fileSexual OrientationNot on filedocumented as of this encounter Plan of Treatment DateTypeDepartmentCare Team (Latest Contact Info)Ndydgbbocfj82/10/2025 10:15 AM ESTOffice Visit NOMSte[facility] [address] [place] [phone] BeatriceDesmond, DO [address] [facility] [address] [place] [address] documented as of this encounter Procedures Procedure NamePriorityDate/TimeAssociated DiagnosisCommentsCBC WITH AUTO CDJMZHKDWZDXKbjydxe25/29/2025 11:57 AM EDT documented in this encounter Results * (ABNORMAL) CBC auto differential (03/24/2025 11:57 AM EDT)ComponentValueRef RangeTest MethodAnalysis TimePerformed AtPathologist SignatureWBC9.03.8 - 11.6 [CFU]/mL03/24/2025 12:28 PM [facility] CtrUNCORRECTED WHITE BLOOD COUNT9.03.8 - 11.6 10*3/uL03/24/2025 12:28 PM [facility] CtrRBC4.743.60 - 5.00 10*6/uL03/24/2025 12:28 PM [facility] RibMNLMLMVTIC05.011.8 - 15.4 g/dL03/24/2025 12:28 PM [facility] AzoLLOLMUYXVX87.634.0 - 46.4 %03/24/2025 12:28 PM EDT [facility] OisFAZ48.980 - 100 fL03/24/2025 12:28 PM EDT [facility] PwfCAV42.724.7 - 34.3 pg03/24/2025 12:28 PM EDT [facility] BmdAREK97.3(H)32.0 - 35.0 g/dL03/24/2025 12:28 PM [facility] CtrRED CELL DISTRIBUTION WIDTH, RDW14.011.9 - 15.3 %03/24/2025 12:28 PM [facility] CtrPLATELET WQTDG995 150 - 450 10*3/uL03/24/2025 12:28 PM [facility] CtrMEAN PLATELET VOLUME, MPV8.86.3 - 10.7 fL03/24/2025 12:28 PM [facility] CtrNEUTROPHILS, %76.1. %03/24/2025 12:28 PM [facility] CtrLYMPHOCYTES, %18.9. %03/24/2025 12:28 PM [facility] CtrMONOCYTE/MACROPHAGE, %4.2. %03/24/2025 12:28 PM [facility] CtrEOSINOPHILS, %0.4. %03/24/2025 12:28 PM [facility] CtrBASOPHILS, %0.4. %03/24/2025 12:28 PM [facility] CtrNRBC0.10 - 0.5 /100{WBC}03/24/2025 12:28 PM [facility] CtrNEUTROPHILS6.91.8 - 7.7 10*3/uL03/24/2025 12:28 PM EDT [facility] CtrLYMPHOCYTES1.71.00 - 4.8 10*3/uL03/24/2025 12:28 PM [facility] CtrMONOCYTES0.40.0 - 0.8 10*3/uL03/24/2025 12:28 PM [facility] CtrEOSINOPHILS0.00.0 - 0.45 10*3/uL 03/24/2025 12:28 PM [facility] CtrBASOPHILS0.00.0 - 0.2 10*3/uL03/24/2025 12:28 PM [facility] CtrSpecimen (Source) Anatomical Location / LateralityCollection Method / VolumeCollection Time Received TimeBlood (Blood)03/24/2025 11:57 AM EDT1 12:07 PM EDT Narrative Authorizing ProviderResult TypeResult StatusRichard A Visci DOLAB BLOOD ORDERABLESFinal ResultPerforming OrganizationAddressCity/State/ZIP CodePhone Number [facility] [address] [place] [address], [facility] [address] [place] [address] documented in this encounter Visit Diagnoses Not on filedocumented in this encounter Care Teams Team MemberRelationshipSpecialtyStart DateEnd Date Judah Portillo MD [address] [facility] [place] [address] PCP - GeneralFamily Medicine12/26/22documented as of this encounter
--- OUTSIDE RECORDS SUMMARY | 2025-04-02 08:10 | XMS_ITS | Clinical Summary ---
Author Organization [facility] Address [address] [place] [address] Care Team Providers Care Sound Equipment Mechanic Name Role Phone Judah Portillo MD Primary Care Provider [phone] Allergies Active AllergyReactionsCriticalityNoted HbxlAfzuufpaMumtejkhnl05/23/2014 Other Reaction(s): Unknown EbvxzrxukezAiagfAoghrf63/18/2013 Medications MedicationSigDispense QuantityRefillsLast FilledStart DateEnd DateStatus ferrous sulfate 325 (65 Fe) MG EC tablet Take 325 mg by mouth in the morning and 325 mg before bedtime. Do not crush, chew, or split. .Active Encounters DateTypeDepartmentCare HfilSfozvygaqsq24/30/2025Results Follow-Up [facility] [place] [facility] [address] [place] [address] Marleen Leonard LPN ECG 12 lead03/24/2025External Result Encounter [facility] External Department Unsolicited Desmond Barron, DO 03/24/2025External Result Encounter [facility] External Department Unsolicited Desmond Barron, DO 03/24/2025External Result Encounter [facility] External Department Unsolicited Desmond Barron, DO 02/25/2025Telephone [facility] [place] [facility] [address] [place] [address] Mg Wyatt MA 02/18/2025Results Follow-Up [facility] [place] [facility] [address] [place] [address] Marleen Leonard LPN Pathology Vmllzw3602/15/2025 10:15 AM EDTProcedure Visit [facility] [address] [place] [address] Desmond Barron, DO Enlarged uterus; Family history of endometriosis; Menometrorrhagia; Dysmenorrhea; Cystocele with hzzpyelvg13/22/1396Lngpaq74/09/2025 12:45 PM EDTConsult [facility] [address] [place] [address] Desmond Barron, DO Enlarged uterus; Family history of endometriosis; Menometrorrhagia; Dysmenorrhea; Cystocele with smjauiazv73/09/4915Pfcgjy45/05/2025Results Follow-Up JERO CAMPBELL [address] [place] [address] Jay Wiseman MD Progesterone, PCOS Diagnostic Profile, CBC, Additional followed-up results: 2 01/21/2025 10:15 AM EDTOffice Visit [facility] [address] [place] [address] Jay Wiseman MD Menorrhagia with regular cycle; Dysmenorrhea; Right ovarian cyst; Hormone imbalance; Iron deficiency anemia, unspecified iron deficiency anemia type01/21/2025 9:30 AM EDTAncillary Procedure [facility] [address] [place] [address] Menorrhagia with regular cycle; Dysmenorrhea; Anemia, unspecified type01/21/20259209Bpllnb42/13/2025 9:45 AM EDTOffice Visit [facility] [address] [place] [address] Jay Wiseman MD Encounter for screening for cervical cancer (Primary Dx); Menorrhagia with regular cycle; Dysmenorrhea; Endometrial polyp; Right ovarian cyst; Hormone imbalance; Iron deficiency anemia, unspecified iron deficiency anemia type; Encounter for gynecological examination without abnormal usjmdro0801/06/2025Travel 01/04/2025Telephone [facility] [place] [facility] [address] [place] [address] Jay Wiseman MD from Last 3 Months Family History Medical HistoryRelationNameCommentsBone cancerFatherhysterectomyMaternal GrandmotherEndometriosisMotherhysterectomySisterRelationNameStatusCommentsFather AliveMaternal GrandmotherAliveMotherAliveSisterAlive Social History Tobacco UseTypesPacks/DayYears UsedDateSmoking Tobacco: NeverSmokeless Tobacco: Never Tobacco Cessation:Counseling Given: Not Answered Alcohol UseStandard Drinks/WeekCommentsNot Currently0 (1 standard drink = 0.6 oz pure alcohol)AUDIT-CAnswerDate RecordedQ1: How often do you have a drink containing alcohol?Never03/13/2023Q2: How many drinks containing alcohol do you have on a typical day when you are drinking?Patient does not drink03/13/2023Q3: How often do you have six or more drinks on one occasion?Never03/13/2023HQ-2 AnswerDate RecordedPatient Health Questionnaire-2 Buekk297 CommentsNoSex and Gender InformationValueDate RecordedSex Assigned at BirthNot on fileLegal HmkUidymv08/15/2023 11:23 PM EDTGender IdentityNot on fileSexual OrientationNot on file Last Filed Vital Signs Vital SignReadingTime TakenCommentsBlood Zmulrkge846/8802/15/2025 10:52 AM EDT Pulse--Temperature--Respiratory Rate--Oxygen Saturation--Inhaled Oxygen Concentration--Dzlwkp27.9 kg (152 lb)02/15/2025 10:52 AM VDBBvgseu493 cm (5' 3 ) 02/15/2025 10:52 AM EDTBody Mass Index26.9302/15/2025 10:52 AM EDT Plan of Treatment DateTypeDepartmentCare Team (Latest Contact Info)Iaomhxuvngh51/10/2025 10:15 AM ESTOffice Visit [facility] [place] [facility] [address] [place] [phone] Visci, Desmond A, DO [address] [place] [address] Procedures Procedure NamePriorityDate/TimeAssociated DiagnosisCommentsCOMPREHENSIVE METABOLIC SCSKQVuvuqvc64/29/2025 11:57 AM EDT CBC WITH AUTO AWYDOOYWHCVVWqjktlq81/29/2025 11:57 AM EDT ECG 12-LEAD03/24/2025 11:07 AM EDT ENDOMETRIAL TIUXJSZywcijj34/22/2025 11:15 AM EDT Family history of endometriosis Menometrorrhagia Dysmenorrhea PATHOLOGY XTCNKZPpkbcfm78/22/2025 12:00 AM EDT Enlarged uterus Family history of endometriosis Menometrorrhagia Dysmenorrhea US PELVIS KFLOQWVOXCCJWdzrlic80/28/2025 9:53 AM EDT Menorrhagia with regular cycle Dysmenorrhea Anemia, unspecified type PCOS DIAGNOSTIC NRKNVNRSihkpcs60/28/2025 9:07 AM EDT Hormone imbalance IBPPDUXZLXMSYztvkhj63/28/2025 9:07 AM EDT Hormone imbalance AUVHJDGRZkkvhgs61/28/2025 9:06 AM EDT Menorrhagia with regular cycle Iron deficiency anemia, unspecified iron deficiency anemia type IRON AND TOTAL IRON BINDING MNJDYVDDQavbmwu78/28/2025 9:06 AM EDT Menorrhagia with regular cycle Iron deficiency anemia, unspecified iron deficiency anemia type SJGErphbgv65/28/2025 9:06 AM EDT Menorrhagia with regular cycle Iron deficiency anemia, unspecified iron deficiency anemia type from Last 3 Months Results * (ABNORMAL) CBC auto differential (03/24/2025 11:57 AM EDT)ComponentValueRef RangeTest MethodAnalysis TimePerformed AtPathologist SignatureWBC9.03.8 - 11.6 [CFU]/mL03/24/2025 12:28 PM [facility] CtrUNCORRECTED WHITE BLOOD COUNT9.03.8 - 11.6 10*3/uL03/24/2025 12:28 PM [facility] CtrRBC4.743.60 - 5.00 10*6/uL03/24/2025 12:28 PM [facility] YglRYJQPCKBYY99.011.8 - 15.4 g/dL03/24/2025 12:28 PM [facility] CkgIBGKVSYMZP98.634.0 - 46.4 %03/24/2025 12:28 PM EDT [facility] HffVGH40.980 - 100 fL03/24/2025 12:28 PM [facility] QueMJE81.724.7 - 34.3 pg03/24/2025 12:28 PM [facility] ClmOPHQ14.3(H)32.0 - 35.0 g/dL03/24/2025 12:28 PM [facility] CtrRED CELL DISTRIBUTION WIDTH, RDW14.011.9 - 15.3 %03/24/2025 12:28 PM [facility] CtrPLATELET CSXXB926 150 - 450 10*3/uL03/24/2025 12:28 PM [facility] CtrMEAN PLATELET VOLUME, MPV8.86.3 - 10.7 fL03/24/2025 12:28 PM [facility] CtrNEUTROPHILS, %76.1. %03/24/2025 12:28 PM [facility] CtrLYMPHOCYTES, %18.9. %03/24/2025 12:28 PM [facility] CtrMONOCYTE/MACROPHAGE, %4.2. %03/24/2025 12:28 PM [facility] CtrEOSINOPHILS, %0.4. %03/24/2025 12:28 PM [facility] CtrBASOPHILS, %0.4. %03/24/2025 12:28 PM [facility] CtrNRBC0.10 - 0.5 /100{WBC}03/24/2025 12:28 PM [facility] CtrNEUTROPHILS6.91.8 - 7.7 10*3/uL03/24/2025 12:28 PM EDT [facility] CtrLYMPHOCYTES1.71.00 - 4.8 10*3/uL03/24/2025 12:28 PM [facility] CtrMONOCYTES0.40.0 - 0.8 10*3/uL03/24/2025 12:28 PM [facility] CtrEOSINOPHILS0.00.0 - 0.45 10*3/uL 03/24/2025 12:28 PM [facility] CtrBASOPHILS0.00.0 - 0.2 10*3/uL03/24/2025 12:28 PM [facility] CtrSpecimen (Source) Anatomical Location / LateralityCollection Method / VolumeCollection Time Received TimeBlood (Blood)03/24/2025 11:57 AM EDT1 12:07 PM EDT Narrative Authorizing ProviderResult TypeResult StatusRichard A Visci DOLAB BLOOD ORDERABLESFinal ResultPerforming OrganizationAddressCity/State/ZIP CodePhone Number [facility] [address] [place] [address], [facility] [address] [place] [address] * (ABNORMAL) Comprehensive metabolic panel (03/24/2025 11:57 AM EDT)Component ValueRef RangeTest MethodAnalysis TimePerformed AtPathologist SignatureGlucose 9670 - 100 mg/dL03/24/2025 12:44 PM [facility] CtrComment: Random Glucose Reference Range is dependent on time and content of last meal. Glucose of more than 200 mg/dL in a nonstressed, ambulatory subject supports the diagnosis of Diabetes Mellitus. ADA recommended reference range BUN87 - 25 mg/dL03/24/2025 12:44 PM [facility] CtrCREATININE 0.57(L)0.60 - 1.20 mg/dL03/24/2025 12:44 PM [facility] ESTIMATED GFR>60. 12:44 PM [facility] BhwCghvdo407 136 - 145 mmol/L1 12:44 PM [facility] CtrPotassium, Bld4.23.5 - 5.1 mmol/L1 12:44 PM [facility] Cphiwhjy90028 - 107 mmol/L1 12:44 PM [facility] Carbon Ivhypqe82.421.0 - 31.0 mmol/L1 12:44 PM [facility] CtrAnion Gap9.86.0 - 15.010 12:44 PM [facility] CtrCalcium9.78.6 - 10.3 mg/dL03/24/2025 12:44 PM [facility] CtrTOTAL PROTEIN7.56.4 - 8.9 g/dL03/24/2025 12:44 PM [facility] CtrALBUMIN LEVEL4.93.5 - 5.7 g/dL03/24/2025 12:44 PM EDT [facility] CtrGLOBULIN2.6g/dL03/24/2025 12:44 PM [facility] CtrALBUMIN/GLOBULIN RATIO1.910 12:44 PM [facility] CtrBILIRUBIN,TOTAL0.70.3 - 1.0 mg/dL03/24/2025 12:44 PM T [facility] CtrASPARTATE AMINO KFHFYYWIMKR36(L)13 - 39 U/L 03/24/2025 12:44 PM [facility] CtrALANINE WETMAWTJEGZVMDDD787 - 52 U/L1 12:44 PM [facility] CtrALKALINE YSGVQDQCEDV9257 - 104 U/L1 12:44 PM [facility]tr Specimen (Source)Anatomical Location / LateralityCollection Method / Volume Collection TimeReceived TimeOtherTopography unknown / Nymxknc0103/24/2025 11:57 AM EDT1 12:07 PM EDT Narrative Authorizing ProviderResult TypeResult StatusRichard A Visci DOLAB BLOOD ORDERABLESFinal ResultPerforming OrganizationAddressCity/State/ZIP CodePhone Number [facility] [address] [address], [facility] [address] [place] [address] * ECG 12 lead (03/24/2025 11:07 AM EDT)Specimen (Source)Anatomical Location / LateralityCollection Method / VolumeCollection TimeReceived Time03/24/2025 11:07 AM EDT Narrative [facility] - 03/24/2025 3:41 PM EDT [facility] Main [place] ?[address] ? [place] [address] ? Electrocardiograph Report ? Signed ? Patient: Whitmore,Radha L ?MR#: [id number] ?? 481 ? : 1985 ?Acct:[id number] ? Age/Sex: 39 / F ?ADM Date: 03/24/25 ? Loc: PS ?Room: ?Type: REG CLI ?? Attending Dr: Desmond Barron DO ? Ordering Provider: Desmond Barron, DO ?? Date of Service: 03/24/25 ?? ECG/ECG 12 lead ECG: pst ? Copies to: ? Test Reason : ?? Blood Pressure : ?? */* ?? mmHG ?? Vent. Rate : 119 BPM ? Atrial Rate : 119 BPM ? P-R Int : 154 ms ?QRS Dur : ??78 ms ?QT Int : 296 ms ? P-R-T Axes : ??78 ??77 ??49 degrees ?QTcB Int : 416 ms ? Sinus tachycardia ?? Possible Lateral infarct , age undetermined ?? Cannot rule out Inferior infarct , age undetermined ?? Abnormal ECG ?? No previous ECGs available ?? Confirmed by Tadeo Higgins ([id number]) on 03/24/2025 3:40:31 PM ? Referred By: ?Electronically Signed By: Tadeo Higgins ? Transcribed By: ? MUS ? Signed By ? Tadeo Higgins MD ?03/24/25 1540 Procedure Note Tadeo Higgins MD - 03/24/2025 [facility] Main [place] [address] [place] [address] Electrocardiograph Report Signed Patient: Radha Whitmore LMR#: [id number] : 1985Acct:[id number] Age/Sex: 39 / FADM Date: 03/24/25 Loc: Room:Type: [facility] Attending Dr: Desmond Barron DO Ordering Provider: Desmond Barron DO Date of Service: 03/24/25 ECG/ECG 12 [...] previous ECGs available Confirmed by Tadeo Higgins ([id number]) on 03/24/2025 3:40:31 PM Referred By: Electronically Signed By: Tadeo Higgins Transcribed By: MUS Signed By Tadeo Higgins MD 03/24/25 479 Authorizing ProviderResult TypeResult StatusRichard Mary Beth Barron DOECG ORDERABLES Final ResultPerforming OrganizationAddressCity/State/[place] [address], * Endometrial biopsy (02/15/2025 11:15 AM EDT) Narrative Beatrice Desmond Clinton DO - 02/15/2025 11:15 AM EDT Desmond Barron DO 02/15/2025 3:47 PM Endometrial biopsy Date/Time: 02/15/2025 11:15 AM Performed by: Desmond Barron DO Authorized by: Desmond Barron DO ?? Consent: ??Consent obtained: verbal ??Consent given by: patient ??Risks discussed: bleeding, infection and pain Indications: ??Indications: abnormal uterine bleeding ?? Procedure: ??A bimanual exam was performed: yes ?Prepped with: Betadine ??Tenaculum used: yes ?A local block was performed: no ?Cervix dilated: yes ?Number of passes: 1 Findings: ??Cervix: stenotic ?Uterus depth by sound (cm): 8 ??Specimen collected: specimen collected and sent to pathology ?Patient tolerance: tolerated well, no immediate complications Authorizing ProviderResult TypeResult StatusDesmond Barron DOIN CLINIC/BEDSIDE ORDERABLESFinal Result * Pathology Report (02/15/2025 12:00 AM EDT)ComponentValueRef RangeTest Method Analysis TimePerformed AtPathologist SignatureMaterial Submitted:Comment [facility]PComment: Material submitted: ?. endometrium - EMB Clinician Provided VEU65KqndcibHWXYEELVsouuho: Clinician provided ICD-10: N85.2 Z84.2 N92.1 N94.6 Diagnosis:CommentLABCORPComment: Diagnosis: ENDOMETRIUM, BIOPSY: - SECRETORY-PHASE ENDOMETRIUM. - NEGATIVE FOR ATYPIA AND MALIGNANCY. SMI ??02/17/2025 ??1909 Local Electronically Signed:CommentLABCORPComment: Electronically signed: ? . Greyson Franklin MD, Pathologist Gross Description:CommentLABCORPComment: Gross description: ? . RECEIVED IN FORMALIN LABELED WITH THE PATIENT'S NAME AND EMB IS A 2.5 X 1.2 X 0.2 CM AGGREGATE OF MULTIPLE IRREGULAR FRAGMENTS OF BRIGHT RED SOFT TISSUE. ENTIRELY SUBMITTED IN ONE CASSETTE. MZH/TMZ ??02/17/2025 ??0519 Local Pathologist Provided CSC90OotafxsUPOQVJMDicviqo: Pathologist provided ICD-10: N88.9 CPTCommentLABCORPComment: CPT ?. 528304 Specimen (Source)Anatomical Location / LateralityCollection Method / Volume Collection TimeReceived NoziWjpkw64 Narrative [facility] - 02/17/2025 8:07 PM EDT Performed at: 01 - [facility] [address] [place] [address] ??[phone] Internet Architect: Jaycob Pritchard MD, Phone: ??[phone] Performed at: ??02 - [facility] [address] [place] [address] ??[id number] Internet Architect: Artem Sharif MD, Phone: ??[phone] Performed at: ??03 - [facility] [address] [place], [place] ??[id number] Internet Architect: Jaycob Pritchard MD, Phone: ??[phone] Specimen Comment: No. of containers..01 Tissue Authorizing ProviderResult TypeResult StatusRichard A Visci DOLAB PATHOLOGY ORDERABLESFinal ResultPerforming OrganizationAddressCity/State/ZIP CodePhone Number [facility] * US pelvis transvaginal (01/21/2025 9:53 AM EDT)Anatomical RegionLaterality ModalityPelvisUltrasoundStudy GAStudy DateStudy EDDWorking EDGAR (Source) 01/21/2025Specimen (Source)Anatomical Location / LateralityCollection Method / VolumeCollection TimeReceived Time Narrative 01/30/2025 9:01 PM EDT Images from the original result were not included. ?? Obstetrics & Gynecology ? [address] ? [address] ? [address] ?[address], [facility] [address] ? [place] [address] ?[place] [address] ? - - - - - - - - - - - - - - - - - - - - - - - - - - - - - - - - - - - - - - - - - - - - - - - - - - - - - - - - - - - - - - - - - - Pelvic Ultrasound Patient name: Radha Whitmore : 1985 (39 y.o.) Date of exam: 01/21/25 - - - - - - - - - - - - - - - - - - - - - - - - - - - - - - - Indication: menorrhagia with regular cycle, dysmenorrhea, anemia Surgical History: C/S Method: Transvaginal ultrasound examination View: Suboptimal, Limited by overlying bowel gas - - - - - - - - - - - - - - - - - - - - - - - - - - - - - - - Measurements: Uterus: 11.9 x 6.6 x 5.0 cm ??Volume: 205.2 cm?? Endometrial thickness: 13.6 mm Right ovary: 2.8 x 2.8 x 2.1 cm ??Volume: 8.3 cm?? Left ovary: 2.8 x 3.4 x 2.2 cm Volume: 10.9 cm?? - - - - - - - - - - - - - - - - - - - - - - - - - - - - - - - Findings: Uterus: The uterus is enlarged in size and normal in contour. Position: Anterverted, neutral flexion Malformations: none Myometrium: The myometrium is homogenous in echotexture. Fibroid(s): no overt fibroid(s) Endometrium: The endometrium appears normal in contour and thickness. Polyp(s): no overt polyp(s) Cervix: The cervix appears unremarkable. - - - - - - - - - - - - - - - - - - - - - - - - - - - - - - - Right ovary: Visualized Morphology: normal appearing Cyst(s): no cysts visualized Doppler: power doppler shows ovarian blood profusion Right adnexa: no overt adnexal mass - - - - - - - - - - - - - - - - - - - - - - - - - - - - - - - Left ovary: Visualized Morphology: normal appearing Cyst(s): The left ovary contains a single thin-walled, sonolucent cyst, measuring 2.3 x 2.4 x 2.3 cm. Doppler: power doppler shows ovarian blood profusion Left adnexa: no overt adnexal mass - - - - - - - - - - - - - - - - - - - - - - - - - - - - - - - Cul de Sac: no free fluid - - - - - - - - - - - - - - - - - - - - - - - - - - - - - - - - - - - - - - - - - - - - - - - - - - - - - - - - - - - - - - - - - - Impression: The uterus is enlarged in size and [...] no free fluid visible within the pelvis. - - - - - - - - - - - - - - - - - - - - - - - - - - - - - - - - - - - - - - - - - - - - - - - - - - - - - - - - - - - - - - - - - - Ordering/Reading Provider: Jay Wiseman M.D. ??Home Health Cna: [facility] Authorizing ProviderResult TypeResult StatusJay Wiseman MDIMG US PROCEDURES Final Result * (ABNORMAL) PCOS Diagnostic Profile (01/21/2025 9:07 AM EDT)ComponentValueRef RangeTest MethodAnalysis TimePerformed AtPathologist SignatureTSH2.2uU/mL [facility]ORPComment: Reference Range: Non- Adult 0.450-4.500 First Trimester 0.100-4.000 Second Trimester 0.200-4.000 Third Trimester 0.300-4.500 Kflujuo71hj/dLLABCORPComment: This test was developed and its performance characteristics determined by [facility]. It has not been cleared or approved by the Food and Drug Administration. Reference Range: Adult Females ??Premenopausal ??10 - 55 ??Postmenopausal ??7 - 40 % Free Testost (Dialysis)0.5%LABCORPComment: This test was developed and its performance characteristics determined by [facility]. It has not been cleared or approved by the Food and Drug Administration. Reference Range: Adult Females: 0.8 - 1.4 Free Testosterone1.4pg/mLLABCORPComment: Reference Range: Adult Females: 1.1 - 6.3 LH Ped2.4mIU/mLLABCORPComment: This test was developed and its performance characteristics determined by [facility]. It has not been cleared or approved by the Food and Drug Administration. Reference Range: Follicular: 2 - ??9 Mid-cycle peak: 18 - 49 Luteal: 2 - 11 Postmenopausal: 20 - 70 FSH Ped4.7mIU/mLLABCORPComment: This test was developed and its performance characteristics determined by [facility]. It has not been cleared or approved by the Food and Drug Administration. Reference Range: Follicular and Luteal: 1.8 - 11.2 Mid-cycle peak: 6 - 35 Postmenopausal: 30 - 120 Mlabhhfea45.9ng/mLLABCORPComment: Hook effect or prozone effect has been ruled out by performing additional dilution analysis on all prolactin testing. Reference Range: Female Children and Adults: 4.79 - 23.3 17-Alpha-[place] Szugjeh812xi/dLLABCORPComment: This test was developed and its performance characteristics determined by [facility]. It has not been cleared or approved by the Food and Drug Administration. Reference Range: Adult Female Follicular: 15 - 70 Luteal: 35 - 290 DHEA-S XYRE019yc/dLLABCORPComment: This test was developed and its performance characteristics determined by [facility]. It has not been cleared or approved by the Food and Drug Administration. Reference Range: Adult Females (31 - 40y): 17 - 286 Sex Hormone Bind Bjzl493.0(H)nmol/LLABCORPComment: Reference Range: Pubertal: 36.0 - 125.0 20 - 49y: 24.6 - 122.0 >49y: 17.3 - 125.0 Estradiol VG347gw/mLLABCORPComment: This test was developed and its performance characteristics determined by [facility]. It has not been cleared or approved by the Food and Drug Administration. Reference Range: Adult Females Follicular: 30 - 100 Luteal: 70 - 300 Postmenopausal: <15 Mullerian AMH2.60ng/mLLABCORPComment: For assays employing antibodies, the possibility exists for interference by heterophile antibodies in the samples.1 1.Adri Pan ??Interferences in Immunoassays - still a threat. Clin. Chem. 2000; 46: 4757-5730. This test was developed and its performance characteristics determined by [facility]. It has not been cleared or approved by the Food and Drug Administration. Reference Range: Females 36 - 40y: 0.42 - 8.34 Median ??1.69 AMH concentrations of >= 1.06 ng/mL is correlated with a better response to ovarian stimulation, produced more retrievable oocytes and higher odds of live according to Memo et al. ??Fertility and Sterility. 2010: 94:7595-8839. ??The current AMH test method correlates with the study method with a slope of 0.94. Females at risk of ovarian hyperstimulation syndrome or polycystic ovarian syndrome (PCOS) may exhibit elevated serum AMH concentrations. ?? AMH levels from PCOS patients may be 2 to 5 fold higher than age-appropriate reference interval values. Granulosa cell tumors of the ovary may secrete AMH along with other tumor markers. ??Elevated AMH is not specific for malignancy, and the assay should not be used exclusively to diagnose or exclude an AMH-secreting ovarian tumor. Specimen (Source)Anatomical Location / LateralityCollection Method / Volume Collection TimeReceived TimeBloodVenous blood specimen / Ilgdjou2701/21/2025 9:07 AM EDT01/21/2025 Narrative [facility] - 01/29/2025 6:07 AM EDT Performed at: 01 - [facility] [address] [place] [address] ??[id number] Internet Architect: Darinel Mix MD, Phone: ??[phone] Authorizing ProviderResult TypeResult StatusJay Wiseman MDLAB BLOOD ORDERABLESFinal ResultPerforming OrganizationAddressCity/State/ZIP CodePhone Number [facility] * Progesterone (01/21/2025 9:07 AM EDT)ComponentValueRef RangeTest Method Analysis TimePerformed AtPathologist YwwfpwiafJdwtjyfpjnfb97.7ng/mLLABCORP Comment: ? Follicular phase ? 0.1 - ?? 0.9 ? Luteal phase ? 1.8 - ??23.9 ? Ovulation phase ?0.1 - ??12.0 ?First trimester ?11.0 - ??44.3 ?Second trimester ?? 25.4 - ??83.3 ?Third trimester ?58.7 - 214.0 ? Postmenopausal ? 0.0 - ?? 0.1 Specimen (Source)Anatomical Location / LateralityCollection Method / Volume Collection TimeReceived TimeBloodVenous blood specimen / Gltovlg7701/21/2025 9:07 AM EDT01/21/2025 Narrative [facility] - 01/29/2025 6:07 AM EDT Performed at: [address] ??[id number] Internet Architect: Abhijeet Tejeda PhD, Phone: ??[phone] Authorizing ProviderResult TypeResult Alesha BOURGEOIS BLOOD ORDERABLESFinal ResultPerforming OrganizationAddressCity/State/ZIP CodePhone Number [facility] * Iron and TIBC (01/21/2025 9:06 AM EDT)ComponentValueRef RangeTest Method Analysis TimePerformed AtPathologist SignatureIron Bind.Cap.(TIBC)216420 - 450 ug/rAETQNPPYYKYD539814 - 425 ug/nGZBDMNONFckf2879 - 159 ug/dLLABCORPIron Qlzjgtydyr5348 - 55 %LABCORPSpecimen (Source)Anatomical Location / Laterality Collection Method / VolumeCollection TimeReceived TimeBloodVenous blood specimen / Oqyxkps0201/21/2025 9:06 AM EDT01/21/2025 Narrative [facility] - 01/22/2025 6:07 AM EDT Performed at: [address] ??[id number] Internet Architect: Abhijeet Tejeda PhD, Phone: ??[phone] Authorizing ProviderResult TypeResult Alesha BOUREGOIS BLOOD ORDERABLESFinal ResultPerforming OrganizationAddressty/Foundations [facility] CodePhone Number [facility] * (ABNORMAL) CBC (01/21/2025 9:06 AM EDT)ComponentValueRef RangeTest Method Analysis TimePerformed AtPathologist SignatureWBC8.73.4 - 10.8 x10E3/uLL[facility] RBC4.873.77 - 5.28 x10E6/pXCGJVXCDGtu26.411.1 - 15.9 g/cVLWSBKNVWrp60.934.0 - 46.6 %LMAQRDPDBK8715 - 97 tKLNOQUFUMVU82.626.6 - 33.0 mtWSVWGNZFNEG90.431.5 - 35.7 g/qBJYYFGTIUYM58.5(H)11.7 - 15.4 %WMXUBLYAacmcbozz584759 - 450 x10E3/uL [facility]pecimen (Source)Anatomical Location / LateralityCollection Method / VolumeCollection TimeReceived TimeBloodVenous blood specimen / Unknown 01/21/2025 9:06 AM EDT01/21/2025 Narrative [facility] - 01/22/2025 6:07 AM EDT Performed at: - Lab[address], [address], [place] ??[id number] Internet Architect: Malka Lyles MD, Phone: ??[phone] Authorizing ProviderResult TypeResult StatusJay BOURGEOIS BLOOD ORDERABLESFinal ResultPerforming OrganizationAddressCity/State/[facility] CodePhone Number [facility] * Ferritin (01/21/2025 9:06 AM EDT)ComponentValueRef RangeTest MethodAnalysis TimePerformed AtPathologist OqexdyprdXfopdemk4561 - 150 ng/mLLABCORPSpecimen (Source)Anatomical Location / LateralityCollection Method / VolumeCollection TimeReceived TimeBloodVenous blood specimen / Ufiqjgu9701/21/2025 9:06 AM EDT 01/21/2025 Narrative [facility] - 01/22/2025 6:07 AM EDT Performed at: [address] ??[id number] Internet Architect: Abhijeet Tejeda PhD, Phone: ??[phone] Authorizing ProviderResult TypeResult Alesha BOURGEOIS BLOOD ORDERABLESFinal ResultPerforming OrganizationAddressCity/State/ZIP CodePhone Number [facility] from Last 3 Months Insurance Care Teams Team MemberRelationshipSpecialtyStart DateEnd Judah Portillo MD [address] [place] [address] [facility]12/26/22
--- OUTSIDE RECORDS SUMMARY | 2025-04-02 08:10 | XMS_ITS | Encounter Summary ---
Author Organization [facility] Address [address] [place] [address] Care Team Providers Care Vice Investigator Name Role Phone Judah Portillo MD Primary Care Provider [phone] Encounter Details DateTypeDepartmentCare Team (Latest Contact Info)Sdlkuvixvsl35/30/2025Results Follow-Up [facility] [address] [place] [address] Marleen Leonard LPN ECG 12 lead Social History Tobacco UseTypesPacks/DayYears UsedDateSmoking Tobacco: NeverSmokeless [...] on one occasion?Never3PHQ-2 AnswerDate RecordedPatient Health Questionnaire-2 Jrbeb0373 CommentsNoSex and Gender InformationValueDate RecordedSex Assigned at BirthNot on fileLegal YrgYeuvwz39/15/2023 11:23 PM EDTGender IdentityNot on fileSexual OrientationNot on filedocumented as of this encounter Plan of Treatment DateTypeDepartmentCare Team (Latest Contact Info)Evhyllfdjyc01/10/2025 10:15 AM ESTOffice Visit [facility] [place] [facility] [address] [place] [address] Desmond Barron, DO [address] [facility] [address] [place] [address] documented as of this encounter Visit Diagnoses Not on filedocumented in this encounter Care Teams Team MemberRelationshipSpecialtyStart DateEnd Date Judah Portillo MD [address] [place] [address] PCP - GeneralFamily Medicine12/26/22documented as of this encounter
--- OUTSIDE RECORDS SUMMARY | 2025-04-02 08:11 | XMS_ITS | Encounter Summary ---
Author Organization [facility] Address [address] [place] [address] Care Team Providers Care Leasing Representative Name Role Phone Judah Portillo MD Primary Care Provider [phone] Encounter Details DateTypeDepartmentCare Team (Latest Contact Info)Dkohhzjfwow75/29/2025External Result Encounter [facility] External Department Unsolicited Desmond Barron DO [address] [place] [address] Social History Tobacco UseTypesPacks/DayYears UsedDateSmoking Tobacco: NeverSmokeless [...] on one occasion?Never3PHQ-2 AnswerDate RecordedPatient Health Questionnaire-2 Dptsw2753 CommentsNoSex and Gender InformationValueDate RecordedSex Assigned at BirthNot on fileLegal WrcWfglny07/15/2023 11:23 PM EDTGender IdentityNot on fileSexual OrientationNot on filedocumented as of this encounter Plan of Treatment DateTypeDepartmentCare Team (Latest Contact Info)Uqdfdghqjwg58/10/2025 10:15 AM ESTOffice Visit [facility] [address] [place] [address] Desmond Barron, DO [address] [place] [address] documented as of this encounter Procedures Procedure NamePriorityDate/TimeAssociated DiagnosisCommentsECG 12-LEAD03/24/2025 11:07 AM EDT documented in this encounter Results * ECG 12 lead (03/24/2025 11:07 AM EDT)Specimen (Source)Anatomical Location / LateralityCollection Method / VolumeCollection TimeReceived Time03/24/2025 11:07 AM EDT [facility] 03/24/2025 3:41 PM EDT [facility] ?[facility] ?[address] ? [place] [address] ? Electrocardiograph Report ? Signed ? Patient: Whitmore,Radha L ?MR#: [id number] ?? [id number] ? : 1985 ?Acct:[id number] ? Age/Sex: 39 / F ?ADM Date: [...] ECGs available ?? Confirmed by Tadeo Higgins ([id number]) on 03/24/2025 3:40:31 PM ? Referred By: ?Electronically Signed By: Tadeo Higgins ? Transcribed By: ? MUS ? Signed By ? Tadeo Higgins MD ?03/24/25 1540 Procedure Note Tadeo Higgins MD - 03/24/2025 [facility] [place] [address] [place] [address] Electrocardiograph Report Signed Patient: Radha Whitmore LMR#: [id number] : 1985Acct:[id number] Age/Sex: 39 / FADM Date: 03/24/25 Loc: Room:Type: [facility] Attending Dr: Desmond Barron DO Ordering Provider: [...] previous ECGs available Confirmed by Tadeo Higgins ([id number]) on 03/24/2025 3:40:31 PM Referred By: Electronically Signed By: Tadeo Higgins Transcribed By: MUS Signed By Tadeo Higgins MD 03/24/25 4908 Authorizing ProviderResult TypeResult StatusRichard A Visci DOECG ORDERABLES Final ResultPerforming OrganizationAddressCity/State/ZIP CodePhone Number [facility] [address] [place] [address], documented in this encounter Visit Diagnoses Not on filedocumented in this encounter Care Teams Team MemberRelationshipSpecialtyStart DateEnd Date Judah Portillo MD [address] [place] [address] PCP - GeneralFamily Medicine12/26/22documented as of this encounter
--- OUTSIDE RECORDS SUMMARY | 2025-04-02 08:11 | XMS_ITS | Encounter Summary ---
Author Organization [facility] Address [address] [place] [address] Care Team Providers Care Inspector Chief Name Role Phone Judah Portillo MD Primary Care Provider [phone] Encounter Details DateTypeDepartmentCare Team (Latest Contact Info)Rnukxwlrmrx33/29/2025External Result Encounter [facility] External Department Unsolicited Desmond Barron DO [address] [place] [address] Social History Tobacco UseTypesPacks/DayYears UsedDateSmoking Tobacco: NeverSmokeless [...] on one occasion?Never3PHQ-2 AnswerDate RecordedPatient Health Questionnaire-2 Bjjha5833 CommentsNoSex and Gender InformationValueDate RecordedSex Assigned at BirthNot on fileLegal NuuRivjdr34/15/2023 11:23 PM EDTGender IdentityNot on fileSexual OrientationNot on filedocumented as of this encounter Plan of Treatment DateTypeDepartmentCare Team (Latest Contact Info)Yynzvmtlyxw58/10/2025 10:15 AM ESTOffice Visit [facility] [address] [place] [address] Beatrice Desmond Mary Beth, DO [address] [facility] [address] [place] [address] documented as of this encounter Procedures Procedure NamePriorityDate/TimeAssociated DiagnosisCommentsCOMPREHENSIVE METABOLIC QSPDPXjdahyk86/29/2025 11:57 AM EDT documented in this encounter Results * (ABNORMAL) Comprehensive metabolic panel (03/24/2025 11:57 AM EDT)Component ValueRef RangeTest MethodAnalysis TimePerformed AtPathologist SignatureGlucose 9670 - 100 mg/dL03/24/2025 12:44 PM [facility] CtrComment: Random Glucose Reference Range is dependent on time and content of last meal. Glucose of more than 200 mg/dL in a nonstressed, ambulatory subject supports the diagnosis of Diabetes Mellitus. ADA recommended reference range BUN87 - 25 mg/dL03/24/2025 12:44 PM [facility] CtrCREATININE 0.57(L)0.60 - 1.20 mg/dL03/24/2025 12:44 PM [facility] ESTIMATED GFR>60. 12:44 PM [facility] HxcKhcfwh256 136 - 145 mmol/L1 12:44 PM [facility] CtrPotassium, Bld4.23.5 - 5.1 mmol/L1 12:44 PM [facility] Hgeimgbt81910 - 107 mmol/L1 12:44 PM [facility] Carbon Hxtdrjd75.421.0 - 31.0 mmol/L1 12:44 PM [facility] CtrAnion Gap9.86.0 - 15. 12:44 PM [facility] CtrCalcium9.78.6 - 10.3 mg/dL03/24/2025 12:44 PM [facility] CtrTOTAL PROTEIN7.56.4 - 8.9 g/dL03/24/2025 12:44 PM [facility] CtrALBUMIN LEVEL4.93.5 - 5.7 g/dL03/24/2025 12:44 PM EDT [facility] CtrGLOBULIN2.6g/dL03/24/2025 12:44 PM [facility] CtrALBUMIN/GLOBULIN RATIO1.91 12:44 PM [facility] CtrBILIRUBIN,TOTAL0.70.3 - 1.0 mg/dL03/24/2025 12:44 PM EDT [facility] CtrASPARTATE AMINO NLKNGBBKURJ80(L)13 - 39 U/L 03/24/2025 12:44 PM [facility] CtrALANINE XEDIIMMJHLCDZLCY025 - 52 U/L1 12:44 PM [facility] CtrALKALINE QINUKUZRTEX7682 - 104 U/L1 12:44 PM [facility] Specimen (Source)Anatomical Location / LateralityCollection Method / Volume Collection TimeReceived TimeOtherTopography unknown / Ojzkukx3403/24/2025 11:57 AM EDT1 12:07 PM EDT Narrative Authorizing ProviderResult TypeResult StatusRichard A Visci DOLAB BLOOD ORDERABLESFinal ResultPerforming OrganizationAddressCity/State/ZIP CodePhone Number [facility] [address] [place] [address], [facility] [address] [place] [address] documented in this encounter Visit Diagnoses Not on filedocumented in this encounter Care Teams Team MemberRelationshipSpecialtyStart DateEnd Date Judah Portillo MD [address] [place] [address] PCP - GeneralFamily Medicine12/26/22documented as of this encounter
--- OUTSIDE RECORDS SUMMARY | 2025-04-02 08:13 | XMS_ITS | Clinical Summary ---
Author Organization [facility] Address [address] [place] [address] Care Team Providers Care Paint Prep Technician Name Role Phone Judah Portillo MD Primary Care Provider [phone] Allergies Active AllergyReactionsCriticalityNoted UzfoIqcvdjizIzccyiszpiAinjnhz35/23/2014 NfnstgqdnmaVjdqkStskfe24/18/2013 Medications No known medications Active Problems ProblemNoted DateDiagnosed GqjfFzcqhxk67/23/2014Cardiomyopathy in the puerperium 03/13/2013 Family History Medical HistoryRelationCommentsHypertensionMaternal GrandmotherOsteoporosis Maternal UncleLipidsMotherHypertensionPaternal GrandmotherRelationStatusComments BrotherAliveFatherAliveMaternal GrandfatherAliveMaternal GrandmotherAlive Maternal UncleMotherAlivePaternal GrandfatherAlivePaternal GrandmotherAlive SisterAliveSon 1AliveSon 2AliveSon 3Alive Social History Tobacco UseTypesPacks/DayYears UsedDateSmoking Tobacco: NeverSmokeless Tobacco: NeverAlcohol UseStandard Drinks/WeekCommentsNo0 (1 standard drink = 0.6 oz pure alcohol)CommentsUnknownSex and Gender InformationValueDate RecordedSex Assigned at BirthNot on fileLegal JkfXnwwjj49/07/2013 8:56 AM EDTGender Identity Not on fileSexual OrientationNot on file Last Filed Vital Signs Vital SignReadingTime TakenCommentsBlood Obktyfob784/90011/16/2013 10:35 AM EDT Ljerm83683 10:35 AM OUUPsotcreqems77.1 ??C (98.8 ??F)11/16/2013 10:35 AM EDTRespiratory Tqec716711/16/2013 10:35 AM EDTOxygen Lrrwjejsoj686%11/16/2013 10:35 AM EDTInhaled Oxygen Concentration--Animxb36.1 kg (148 lb)11/16/2013 10:35 AM MTIHvddqv732 cm (5' 3 )11/16/2013 10:35 AM EDTBody Mass Index26.22011/16/2013 10:35 AM EDT Plan of Treatment Health MaintenanceDue DateLast DoneCommentsAnxiety Mdphynefn85/06/2005Depression Egqhlcyvc97/06/2005HIV Svaalhhmq58/06/2005Hepatitis C Uzumthoeu59/06/2005 DTaP,Tdap,Td Vaccine (1 - Tdap)2005Hepatitis B Vaccine (1 of 3 - 19+ 3- dose series)2005Cervical Cancer Wckhzjplz39/06/2008HPV Vaccine (1 - 3-dose SCDM series)2013Covid-19 Vaccine (1 - 2024- season)2025Influenza Vaccine (#1)2025 Insurance Care Teams Team MemberRelationshipSpecialtyStart DateEnd Date Judah Portillo MD PCP - GeneralFamily Gcbgbghl98/18/13
--- OUTSIDE RECORDS SUMMARY | 2025-04-02 08:14 | XMS_ITS | Patient Health Record ---
Author Organization [facility] [place] Address [address] [place] [address] Care Team Providers Care Commissioning Agent Name Role Phone Juaquin Fernández Primary Care Provider Allergies Allergen (clinical drug ingredient) Drug/Non Drug Allergy documented on EMR Reaction Allergy Type Onset Date Status Effexorbody tinglingDrug AllergyActiveamoxicillinAmoxicillinhivesDrug Allergy ActivecefdinirCefdinirhivesDrug AllergyActivegentamicinGentamicinrashDrug AllergyActiveciprofloxacinCiprofloxacinchest painDrug AllergyActivedoxycycline DoxycyclinehivesDrug AllergyActive Results Component Value Reference Range Notes FREE T3 Reviewed date:12/09/2024 08:06:08 PM Interpretation: Performing Lab: Notes/Report: [facility] , Free T3 2.76 2.18-3.98 pg/mL Performing Lab:see note - [facility] LBGLYCOHEMOGLOBIN A1C Reviewed date:12/09/2024 08:06:08 PM Interpretation: Performing Lab: Notes/Report: [facility] ,Glycohemoglobin A1C4.54.5-6.2 % ADA RECOMMENDED LIMIT 4.0 - 6.0 ADA THERAPEUTIC TARGET < 7.0 ACTION SUGGESTED > 7.0 Estimated Average Yjvrnbq89Shnjmzjfpr Lab:see note - [facility] LB LIPID PROFILE Reviewed date:12/09/2024 08:06:08 PM Interpretation: Performing Lab: Notes/Report: [facility] ,Ongijjagojghn61<=150 mg/xUSkhiqjuenof398<=200 mg/dLHDL Qxfzmdqgibo1176-83 mg/dL > or =60 mg/dl - LOW CARDIOVASCULAR RISK <40 mg/dl - HIGH CARDIOVASCULAR RISK LDL Cholesterol Kncziqehhu21.0 <100 mg/dl OPTIMAL 100-129 mg/dl NEAR OR ABOVE OPTIMAL 130-159 mg/dl BORDERLINE HIGH 160-189 mg/dl HIGH >190 mg/dl VERY HIGH VLDL AQGUPFJGFAT09.0Chol HDL Ratio2.9 3.3 - 4.4 LOW RISK 4.4 - 7.1 AVERAGE RISK 7.1 - 11.0 MODERATE RISK >11.0 HIGH RISK Performing Lab:see note - [facility] LBPROF 14(COMP METB) Reviewed date:12/09/2024 08:06:08 PM Interpretation: Performing Lab: Notes/Report: [facility] ,Rqwedu965425-966 mmol/LPotassium3.73.5-5.1 mmol/IHzgtuyte23629-261 mmol/LCarbon Ataccfx32.121.0-32.0 mmol/LAnion Gap14.9Wjsbupb4433-802 mg/dLBlood Urea Nitrogen 11.07.0-18.0 mg/dLCreatinine0.440.55-1.02 mg/dLEstimated GFR ( Ute>60 >=60 mL/min/1.73m 2Estimated GFR (Non- Eboni>60>=60 mL/min/1.73m 2BUN Creatinine Ratio25.6Vggsqwq8.78.5-10.1 mg/dLBilirubin Total0.30.2-1.0 mg/dL Aspartate Amino Azvaugzgibv8066-99 U/LAlanine Wgvsgpqkofibemdz6643-32 U/L Alkaline Lhhaoiojgkp2655-992 U/LTotal Protein7.66.4-8.2 g/dLAlbumin Level4.03.4- 5.0 g/dLGlobulin3.6Albumin Globulin Ratio1.1Performing Lab:see note - [facility] LBT4 Reviewed date:12/09/2024 08:06:08 PM Interpretation: Performing Lab: Notes/Report: [facility] ,T4 Sotiiilpq54.204.80-13.90 ug/dLPerforming Lab:[facility] LBTSH Reviewed date:12/09/2024 08:06:08 PM Interpretation: Performing Lab: Notes/Report: [facility] ,Thyroid Stimulating Hormone3.0010.358-3.740 uIU/mLPerforming Lab:see noteML - [facility] LBINSULIN Reviewed date:12/10/2024 06:05:50 PM Interpretation: Performing Lab: Notes/Report: [facility] ,Insulin4.92.6-24.9 uIU/mL Performed at: - [address] [id number] Egg Gatherer: Abhijeet Tejeda PhD, Phone: [phone] Performing Lab:see noteLC - [facility] LBCBC AUTO DIFF Reviewed date:12/09/2024 08:06:08 PM Interpretation: Performing Lab: Notes/Report: [facility] ,White Blood Count7.54.0-11.0 10 3/uLRed Blood Count4.464.20-5.40 10 6/uL Avsclqhryf96.012.0-16.0 g/pDMnepmbnnat88.336.0-48.0 %Mean Corpuscular Rztpyb06.4 81.0-99.0 fLMean Corpuscular Jjkytxxmne87.926.7-34.0 pgMean Corpuscular HGB Conc 33.129.9-35.2 g/dLRed Cell Distribution Width14.111.0-15.0 %Platelet Grlmh027 150-450 10 3/uLMean Platelet Nbtygl54.89.5-13.5 fLNeutrophils Percent Auto73.1 43.0-75.0 %Lymphocytes Percent Auto21.920.5-60.0 %Monocytes Percent Auto4.01.7- 12.0 %Eosinophils Percent Auto0.50.9-7.0 %Basophils Percent Auto0.40.2-2.0 % Immature Granulocytes Pct Auto0.10.0-0.5 %Neutrophils Absolute Auto5.41.4-6.5 10 3/uLLymphocytes Absolute Auto1.61.2-3.8 10 3/uLMonocytes Absolute Auto0.30.3-0.8 10 3/uLEosinophils Absolute Auto0.00.0-0.7 10 3/uLBasophils Absolute Auto0.00.0- 0.1 10 3/uLImmature Granulocytes Abs Auto0.010.00-0.03 10 3/uLPerforming Lab:see noteML - [facility] LBIRON Reviewed date:01/07/2025 04:15:17 PM Interpretation: Performing Lab: Notes/Report: [facility] ,Ljns581.050.0-170.0 ug/dLPerforming Lab:see noteML - [facility] LB FERRITIN Reviewed date:01/07/2025 04:15:17 PM Interpretation: Performing Lab: Notes/Report: [facility] ,Pvkvtuag51.08.0-252.0 ng/mLPerforming Lab:see noteML - [facility] LB CBC AUTO DIFF Reviewed date:01/07/2025 04:15:17 PM Interpretation: Performing Lab: Notes/Report: [facility] ,White Blood Count6.54.0-11.0 10 3/uLRed Blood Count4.424.20-5.40 10 6/uL Fpxzryaaeo67.812.0-16.0 g/lMPitviopjtj08.636.0-48.0 %Mean Corpuscular Kviqhd14.1 81.0-99.0 fLMean Corpuscular Erwnwsodps12.026.7-34.0 pgMean Corpuscular HGB Conc 34.029.9-35.2 g/dLRed Cell Distribution Width16.111.0-15.0 %Platelet Dsqfo398 150-450 10 3/uLMean Platelet Saawxe08.49.5-13.5 fLNeutrophils Percent Auto65.9 43.0-75.0 %Lymphocytes Percent Auto28.120.5-60.0 %Monocytes Percent Auto4.31.7- 12.0 %Eosinophils Percent Auto1.20.9-7.0 %Basophils Percent Auto0.30.2-2.0 % Immature Granulocytes Pct Auto0.20.0-0.5 %Neutrophils Absolute Auto4.31.4-6.5 10 3/uLLymphocytes Absolute Auto1.81.2-3.8 10 3/uLMonocytes Absolute Auto0.30.3-0.8 10 3/uLEosinophils Absolute Auto0.10.0-0.7 10 3/uLBasophils Absolute Auto0.00.0- 0.1 10 3/uLImmature Granulocytes Abs Auto0.010.00-0.03 10 3/uLPerforming Lab:see noteML - [facility] LBMM tomosynthesis screening BI Reviewed date:12/15/2024 04:08:19 PM Interpretation: Performing Lab: Notes/Report: Source Facility: [facility]-[address] [place] [address] [place] [address] Mammography Report Signed Patient: RADHA WHITMORE MR#: [id number] : 1985 Acct:[id number] Age/Sex: 38 / F ADM Date: 12/15/24 Loc: MAMMO Attending Dr: Judah Fernández M.D. Ordering Physician: Judah Fernández M.D. Results: Date of Service: 12/15/24 Follow Up: Procedure(s): MM tomosynthesis screening BI Accession Number(s): [id number] cc: Judah Fernández M.D. Patient Name: RADHA WHITMORE MR#: [id number] : 1985 Exam Date: 12/15/2024 Ordering Doctor: DR JUDAH FERNÁNDEZ . RADIOLOGY REPORT PROCEDURE: MM TOMOSYNTHESIS SCREENING BI COMPARISON: None. INDICATIONS: Screening Calculator Name NCI Breast Cancer Risk Assessment Tool 5 Year Breast Cancer Risk 0.40% Lifetime Breast Cancer Risk 10.00% Personal Breast Cancer No Personal Ovarian Cancer No Treatments None Family Cancers Father with lymphoma cancer at age 28. LOCATION: [facility] BREAST COMPOSITION: The breasts are heterogeneously [...] Dictated By: Ousmane Camacho M.D. Signed By: 12/15/24 160 DD/ 160 TD/TT: Brewing Director:MENA Reviewed date:12/09/2024 08:06:08 PM Interpretation: Performing Lab: Notes/Report: [facility] ,Iron18.050.0-170.0 ug/dLPerforming Lab:see noteML - [facility] LB Reason For Referral No Information Medications [...] containing alcohol in the p ast year? Yes How often did you have 6 or more drinks on one occasion in the past year?Never (0 point)How many drinks did you have on a typical day when you were drinking in the past year?1 or 2 drinks (0 point)How often did you have a drink containing alcohol in the past year?Less than monthly (1 point)Jawmpc2Ijdqnpcvwqbjjq NegativeAUDIT-C (Standard) Question Answer Notes Did you have a drink containing alcohol in the p ast year? No Squfkb3MafogaaupwwctbShjgvenq Problems Problem Type SNOMED Code ICD Code Onset Dates Problem Status W/U Status Risk Notes Problem Anxiety (61741538) Anxiety (F41.9) ActiveconfirmedProblemConstipation (87431568)Constipation (K59.00)Active confirmedProblemWell adult (509711369)Well adult (Z00.00)ActiveconfirmedProblem Cellulitis (838316345)Cellulitis (L03.90)ActiveconfirmedProblemSeasonal allergic rhinitis (187827906)Seasonal allergic reaction (J30.2)ActiveconfirmedProblem Heavy menstrual bleeding (797599296)Heavy menstrual bleeding (N92.0)Active confirmed Vital Signs Heart Rate 93 /min 12/09/2024 Eagbxzcg88 %12/09/2024lood pressure bbuzyftks96 mm Hg03/25/20253327Gjmcuy15 in 03/25/2025lood pressure ldhiumcj407 mm Hg03/25/20252744Hfxidj969.8 lbs1MI 27.06 kg/m203/25/2025 Procedures Procedure Date Ordered Date Performed Result Body Sit e EKG w Interp & Report - performed 03/25/2025 N/ACARDIO Shsyzbxfzzyetf62/30/2025N/A Encounters Encounter Location Date Provider Diagnosis [facility] [address] [place] [address] 12/09/2024 Juaquin y [facility] [place] [address] 12/15/2024Doug [facility] [place] [address]Doug HoyHeavy menstrual bleeding N92.0 and Fatigue R53.83 [facility] [place] [address] 01/07/2025Doug [facility] [place] [address]/30/2025Doug [facility] [place] [address]/30/2025Doug HoyHeavy menstrual bleeding N92.0 ; Anxiety F41.9 and Abnormal ECG R94.31[facility] [place] [address]/16/2025Doug HoyWell adult Z00.00 ; Constipation K59.00 and Seasonal allergic reaction J30.2 Assessments Encounter Date Diagnosis (ICD Code) Assessment Notes Treatment Notes Treatment Clinical Notes Section Notes 12/09/2024 Well adult (ICD-10 - Z00.00) 12/09/2024onstipation (ICD-10 - K59.00)03/25/2025Heavy menstrual bleeding (ICD- 10 - N92.0) Cleared for OR checking echo but ECG in office all normlal 03/25/2025nxiety (ICD-10 - F41.9)01/07/2025Heavy menstrual bleeding (ICD-10 - N92.0)01/07/2025Fatigue (ICD-10 - R53.83)03/25/2025bnormal ECG (ICD-10 - R94.31)Old lateral changes -12/09/2024Seasonal allergic reaction (ICD-10 - J30.2) Plan Of [...] 01/29/2023 XR Mandible (4 views) * 04/24/2023 EKG w Interp & Report - performed 2024 CARDIO Echocardiogram 03/25/2025 Insulin Level 12/09/2024 CULTURE BLOOD 11/04/2023 SED [...] ACCESS PPO PLUS LOCAL PLAN [address] [place] [address] [id number] Berrios Self - patient is the insured Medications Administered Medication Instructions Date of Administration Dosage Notes Ceftriaxone 1 gram g1 gm Medical (General) History Medical History History ICD Code Anemia, iron deficiency D50.9 ADHD F90.9 Breakthrough bleeding N92.1 Acute eczema L30.9 Mass in neck R22.1 Myalgia M79.10 Acute pulmonary embolism I26.99 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
--- NOTE | 2025-04-02 09:00 | CA_ITS ---
Patient Name: JIMI OSEGUERA MR#: [id number] : 1985 Exam Date: 04/02/2025 Ordering Doctor: DR MUNIR FERNÁNDEZ . ECHOCARDIOGRAM REPORT PROCEDURE: CA ECHO DOPPLER COMPLETE INDICATIONS: Abnormal EKG COMPARISON: None. DESCRIPTION: COMPLETE ECHOCARDIOGRAM Real-time transthoracic echocardiography with 2D, M-mode, spectral and color flow Doppler performed. QUALITY: Technical quality was good. LEFT VENTRICLE: Normal chamber size. Normal left ventricular wall thickness. Global left ventricular systolic function is normal. LV EF: Visual estimation of left ventricular ejection fraction is 60-65% DIASTOLIC: Normal diastolic function. ATRIAL SEPTUM: LEFT ATRIUM: Normal chamber size. RIGHT ATRIUM: Normal chamber size. RIGHT VENTRICLE: Normal chamber size. Normal right ventricular systolic function. TRICUSPID VALVE: Normal mobility and thickness. No stenosis with trivial regurgitation. No evidence of pulmonary hypertension. RVSP could not be calculated due to lack of measurable regurgitation. MITRAL VALVE: Normal mobility and thickness. No evidence of mitral valve stenosis. There is no mitral annular calcification. Trivial mitral regurgitation. AORTIC VALVE: Normal trileaflet appearance. No visible sclerosis. Normal leaflet mobility. No evidence of aortic valve stenosis. Trivial aortic regurgitation. AORTIC ROOT: Normal diameter and appearance, measuring 2.7 cm. Ascending aorta is normal in size measuring 2.5 cm. PULMONIC VALVE: Normal thickness and mobility. No stenosis. Trivial regurgitation. PERICARDIUM: No evidence of pericardial effusion. IVC: Collapses with inspiration. Normal size. PLEURA: CONCLUSION: 1. Normal ventricular size and systolic function. Estimated LVEF is 55-60%. 2. Normal diastolic function. 3. No significant valvular dysfunction. 4. Unable to assess right-sided pressures due to lack of measurable tricuspid regurgitation. Adult Echocardiography Procedure Report Left Ventricle LVEDD (3.7 - 5.6 cm): 3.96 cm LVESD (2.2 - 4.0 cm): 2.55 cm LVIVS thickness (0.6 - 1.2 cm): 0.83 cm LVPW thickness (0.5 - 1.0 cm): 0.86 cm e': 0.17 m/s E - e': 5.66 LVOT Max Gradient: 5.10 mm[Hg] LVOT Area (cm2): 1.13 m/s Peak Velocity (LVOT): 1.13 m/s Mean Velocity (LVOT): 0.69 m/s LVOT Diameter 1.95 cm Left Ventricular Ejection Fraction: 60-65 % Left Atrium LA Volume Index (2D A2C): 15.84 ml/m2 Left Atrium Systolic Dimension: 3.12 cm Mitral Valve MV E to A Ratio: 1.31, 1.49 Mitral Valve A-Wave Peak Velocity: 0.70 m/s Mitral Valve E-Wave Peak Velocity: 0.98 m/s Right Ventricle RV Internal Diastolic Dimension: 2.38 cm Aorta AO Root Diam: 2.70 cm Ascending Ao Diam: 2.49 cm Aortic Valve AoV Area (Peak Tavo): 2.80 cm2, 2.78 cm2 AoV Area (VTI): 2.77 cm2, 2.79 cm2 Peak Velocity(Antegrade Flow): 1.21 m/s, 1.18 m/s, 1.21 m/s Peak Gradient(Antegrade Flow): 5.88 mm[Hg], 5.60 mm[Hg], 5.88 mm[Hg] Mean Velocity(Antegrade Flow): 0.86 m/s, 0.85 m/s, 0.86 m/s Mean Gradient(Antegrade Flow): 3.29 mm[Hg], 3.27 mm[Hg], 3.32 mm[Hg] Velocity Time Integral: 19.70 cm, 19.78 cm, 20.02 cm Tricuspid Valve Pulmonic Valve Mean Gradient: 1.39 mm[Hg], 1.75 mm[Hg] Mean Velocity: 0.54 m/s, 0.62 m/s Peak Velocity: 0.87 m/s Peak Gradient: 2.81 mm[Hg], 3.27 mm[Hg] Right Atrium Right Atrium Systolic Pressure: 15.83 ml, 15.83 ml Dictated by: Tadeo Lua M.D. on 04/02/2025 at 17:36 Approved by: Tadeo Lua M.D. on 04/02/2025 at 17:38
== END 2025-04-02 08:05 | disposition home or self-care (01) ==
LOC: CARD 08:05
PROVIDERS: PCP Family Medicine; Visit Provider Family Medicine
DX: R94.31 Abnormal electrocardiogram [ECG] [EKG] (principal)
CPT/HCPCS: 93306